=== PATIENT | female | born 1945 | race Caucasian/White ===

== ENCOUNTER 2019-09-25 10:42 | Outpatient (CLI) | payer MEDICARE, MEDICAID, SELFPAY ==
--- NOTE | 2019-09-25 | XR_ITS ---
WS: [id number] RIGHT HIP HISTORY: PT FELL A COUPLE DAYS AGO, RT HIP PAIN COMPARISON: 10/22/2011 Right hip: No acute fracture or dislocation. Moderate narrowing of the RIGHT hip joint with osteophyt ic ridging around the acetabulum. Surface of the RIGHT hip is irregular. Mild narrowing of the SI joint. Enthesopathy from the iliac crest. XR/XR hip RT 2-3V wo/w pel* [id number] IMPRESSION: 1. No hip fracture. 2. Moderate degenerative joint disease RIGHT hip.
== END 2019-09-25 10:43 | disposition home or self-care (01) ==
LOC: RADOUTREAD 12:56
PROVIDERS: Family Provider Physician Assistant; Visit Provider Physician Assistant
DX: Z76.89 Persons encountering health services in other specified circumstances (principal)

== ENCOUNTER 2020-01-16 08:23 | Outpatient (CLI) | payer MEDICARE, MEDICAID, SELFPAY ==
[2020-01-16 08:50] VITALS: BMI 28.3
--- NOTE | 2020-01-16 08:54 | ECG_ITS ---
NAME OF STUDY: LEXISCAN SESTAMIBI STRESS TEST INDICATION: Exertional Chest Pain LEXISCAN STRESS TEST ORDERING PHYSICIAN: Unknown CLINICAL INFORMATION: Unknown INTERPRETATION: 1. The patient was brought to the laboratory where Lexiscan was infused over 20 seconds. The resting blood pressure was 170/64. Maximum blood pressure was 250/71. The resting heart rate was 61 beats per minute. The maximum heart rate is 93 beats per minute. 2. The baseline electrocardiogram reveals sinus rhythm and is a normal tracing 3. With Lexiscan infusion, there were no ST segment changes to suggest ischemia. 4. The patient experienced no symptoms or arrhythmias during the examination. CONCLUSION: 1. Unremarkable Lexiscan infusion. 2. Nuclear imaging to follow. Electronically Signed On 01-16-2020 12:01:[address] M.D. [id number]
--- NOTE | 2020-01-16 08:54 | NMCV_ITS ---
NM luis miguel perf SPECT r/s* [id number] Patricia Benito Age: 74 Gender: F : 1945 Exam Date: 01/16/2020 08:54 Ordering Phys: Annel Gill Technologist: ALEXIS Rushing Exam Location: [facility] Indications: Exertional chest pain STRESS TEST Please see separate stress test report in [facility] for full findings IMAGE PROTOCOL Rest/Stress 1 Lexiscan Day Radiopharmaceutical Dose (mCi) Administration Site Administered by Rest: Tc-99m 10.6 IV ALEXIS Ly Sestamibi Stress:Tc-99m 32.4 IV ALEXIS Rushing Sestamityrell Rest: 16-Jan-2020 60 Discovery 630 Stress: 16-Jan-2020 45 Discovery 630 0.4mg Lexiscan.supine position only as patient was unable to lay prone. SPECT RESULTS Technical Quality: Good Raw Data Analysis: Breast attenuation Image Corrections: No attenuation or motion correction applied Summed Stress Score: 6 Summed Rest Score: 4 Summed Difference Score: 2 PERFUSION FINDINGS Small area of persistently decreased tracer uptake noted in the apical region of left ventricle and mid to distal inferolateral wall on the rest images which showed mild to moderate reversibility on the stress images, in the absence of wall motion abnormality and absence of prone images most likely it is artifact however cannot rule out ischemia. Clinical correlation advised. FUNCTIONAL RESULTS (calculated via Gated SPECT) Stress Image LV EF (%): 89 Stress EDV (mL):47 TID: 1.04 Stress ESV (mL):5 Rest Image LV EF (%): 89 FUNCTIONAL FINDINGS: There is normal left ventricular systolic function. IMPRESSIONS Small area of persistently decreased tracer uptake noted in the apical region of left ventricle and mid to distal inferolateral wall on the rest images which showed mild to moderate reversibility on the stress images, in the absence of wall motion abnormality and absence of prone images most likely it is an artifact however cannot rule out ischemia. Clinical correlation advised. EKG segment will be documented separately. Miranda Ferraro MD (Electronically Signed) Final Date: 16 Jan 2020 17:48 S
--- NOTE | 2020-01-16 10:45 | SUR.PREOP ---
Patient reports no pain or discomfort prior to the start of the procedure.
[2020-01-16] MEDS: regadenoson 0.4 Mg/5 ml Syringe IVP (11:20)
[2020-01-16 11:28] VITALS: BP 181/63; PULSE 82
== END 2020-01-16 08:24 | disposition home or self-care (01) ==
LOC: RAD 08:29
PROVIDERS: PCP Physician Assistant; Visit Provider Physician Assistant
DX: R07.89 Other chest pain (principal)
CPT/HCPCS: 78452; 93017; A9500; J2785

== ENCOUNTER 2020-02-08 11:05 | Emergency (ER) | payer MEDICARE, MEDICAID, SELFPAY ==
[2020-02-08 11:13] VITALS: BP 189/98; PULSE 97; RESP 18; TEMP 37.1; O2SAT 97
[2020-02-08 11:17] VITALS: BMI 28.6
--- NOTE | 2020-02-08 11:40 | ECG_ITS ---
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 Measurements Intervals [place] Rate: 86 P: 26 HI: 141 QRS: 68 QRSD: 71 T: 14 QT: 351 QTc: 421 Interpretive Statements SINUS RHYTHM NONSPECIFIC ST & T-WAVE ABNORMALITY Compared to ECG 07/09/2019 19:19:15 T-wave abnormality now present Sinus bradycardia no longer present Electronically Signed On 02-09-2020 22:55:33 CDT by Julieta Adhikari M.D. [id number]
--- NOTE | 2020-02-08 11:42 | XR_ITS ---
WS: [id number] XR chest 1V portable [id number] REASON FOR EXAM: chest pain FINDINGS: The cardiac silhouette is borderline enlarged. There is arteriosclerotic changes seen in th e arch the aorta. The lung olvera are well aerated. No pneumonia, pleural effusion, pulmonary edema, no mass effect. There is degenerate changes in both shoulders. The hilum and apices are normal. No osseous abnormalities other than degenerate changes of the thoracic spine. XR/XR chest 1V portable [id number] IMPRESSION: Borderline cardiomegaly with arteriosclerotic changes.
--- NOTE | 2020-02-08 11:43 | W.ED.CHESTPA ---
HPI - Chest Pain General: Chief Complaint: Chest Pain Stated Complaint: R ABD PAIN Time Seen by Provider: 02/08/20 11:08 Source: patient and family Mode of arrival: ambulatory Limitations: no limitations History of Present Illness: HPI narrative: symptoms started 3 days ago with chest pain/pressure, RLQ pain, nausea and vomiting. No fever, no urinary symptoms. no difficulty breathing. Onset (ago): day(s) (3) Timing of current episode: constant Onset: during rest Pain location: left chest Pain radiation: none Severity: moderate Quality: crushing Relieving factors: nitroglycerin Exacerbating factors: nothing Context: recent illness Associated symptoms: Reports abdominal pain, nausea and vomiting; Deny diaphoresis, dyspnea or palpitations Review of Systems General: Reports: 10 or more systems reviewed and unremarkable except in HPI and below Const: Denies: diaphoresis Eyes: Denies: change in vision or blurry vision ENMT: Denies: throat pain, enlarged tonsils, odynophagia, hoarseness, mouth pain or swelling of lips/tongue Card: Reports: chest pain; Denies: palpitations, irregular heart rhythm, edema or swelling of feet/ankles Resp: Denies: dyspnea GI: Reports: abdominal pain, nausea, vomiting and diarrhea : Denies: flank pain, difficulty voiding, dysuria, urinary frequency, urinary urgency or urinary hesitancy Musc: Denies: neck pain, back pain or extremity swelling Skin/Breast: Denies: rash, pruritus or erythema Neuro: Denies: headache(s), numbness in extremities or weakness in extremities Endo: Denies: polyuria, polydipsia or tired all the time [facility] ED PFSH: Social History Smoking and tobacco status: never smoked Physical Exam Const: COMMON NORMALS: no acute distress, average body habitus, patient oriented x3, no limitations, healthy appearing, alert and well nourished HENMT: COMMON NORMALS: normocephalic, atraumatic and moist oral mucous membranes HEAD & SCALP: normocephalic and atraumatic Eye: COMMON NORMALS: Equal, round and reactive pupils present, EOMs intact bilaterally, conjunctivae normal and no scleral icterus CONJUNCTIVA: Yes conjunctivae normal PUPIL: Yes Equal, round and reactive pupils present Neck/C-Spine: COMMON NORMALS: full ROM, supple, no meningeal signs, no JVD and No carotid bruits Chest: COMMONS NORMALS: normal inspection of the chest and normal palpation of entire chest wall Resp: COMMON NORMALS: normal respiratory effort, No retractions, No use of accessory muscles, clear to auscultation bilaterally and percussion normal AUSCULTATION: clear to auscultation bilaterally PERCUSSION: percussion normal Cardio: COMMON NORMALS: no JVD, regular rate, regular rhythm, S1 normal heart sound present, S2 normal heart sound present, No gallops present (Cardio), No clicks present (Cardio), No murmurs present (Cardio), No rub (Cardio) and Peripheral pulses 2+ throughout RATE: regular rate RHYTHM: regular rhythm HEART SOUNDS: S1 normal heart sound present and S2 normal heart sound present PERIPHERAL PULSES: Peripheral pulses 2+ throughout GI: COMMON NORMALS: Normal to inspection, nondistended, normoactive bowel sounds present, Soft to palpation, No hepatosplenomegaly present, no masses and no bruits PALPATION: Yes Soft to palpation, Yes Tenderness to palpation present (GI) (generalized, no rebound), No Guarding due to palpation present (GI), No Rigid due to palpation and Yes No hepatosplenomegaly present : COMMON NORMALS: Yes no CVA tenderness BLADDER/KIDNEY EXAM: Yes no CVA tenderness Back/Pelvis: COMMON NORMALS: no CVA tenderness Extremity: COMMON NORMALS: normal to inspection, full ROM, capillary refill normal, no calf tenderness and no pedal edema Neuro: COMMON NORMALS: patient oriented x3 SENSORIUM/ORIENTATION: Yes alert MENINGEAL SIGNS: Yes no meningeal signs Skin: COMMON NORMALS: no rashes or lesions noted, no wounds, turgor normal, no jaundice, no petechiae and no mottling GENERAL SKIN EXAM: no rashes or lesions noted and turgor normal Course Reevaluation(s): Reevaluation #1: Discussed her lab and imaging findings with her. Flat 2-hour troponin delta. CT scan negative for acute findings, shows a right ovarian cyst. She had known about this cyst in the past. I advised that she follow-up with her primary care for an ultrasound to further evaluate the cyst because at her age I do not expect her to be having ovarian cysts. UA is suggestive of UTI, will give a dose of ceftriaxone here in the emergency department and discharge her home on oral antibiotics. She is to follow-up with her primary care provider next week. she voiced understanding and she is in agreement with the plan. Time: 15:22 Vital Signs: Vital signs: Vital Signs Temperature 98.7 F 02/08/20 11:13 Pulse Rate 89 02/08/20 16:36 Respiratory Rate 16 02/08/20 16:36 Blood Pressure 147/88 02/08/20 16:36 Pulse Oximetry 98 02/08/20 16:36 MDM - Chest Pain MDM Narrative: Medical decision making narrative: Patient who presents to the emergency department with chest pain and right lower quadrant pain. Evaluation in the emergency department was unremarkable other than likely urinary tract infection. She is given a dose of ceftriaxone in the ED and discharged home to follow-up with her primary care provider. She was discharged home with a prescription for oral antibiotic. Medical Records: Attestation: I reviewed the patient's medical records. Lab Data: Attestation: I reviewed the patient's lab results. Labs: Lab Results 02/08/20 02/08/20 02/08/20 Range/Units 11:50 11:50 11:50 WBC 8.5 (4.0-10.0) 10^3/ uL RBC 4.58 (4.1-5.3) 10^6/u L Hgb 12.1 (11.5-15.3) g/dL Hct 38.9 (37.0-47.0) % MCV 84.9 (81-99) fL MCH 26.4 L (28.0-34.0) pg MCHC 31.1 (30.0-36.0) g/dL RDW 14.5 (12.1-15.1) % Plt Count 278 (130-400) 10^3/c mm MPV 9.0 (7.4-10.4) fL Neut % (Auto) 77.5 % Lymph % (Auto) 13.7 % Marathon % (Auto) 6.9 % Eos % (Auto) 0.9 % Baso % (Auto) 0.6 % Neut # (Auto) 6.6 (1.8-7.7) 10^3/u L Lymph # (Auto) 1.2 (0.8-4.8) 10^3/u L Marathon # (Auto) 0.6 (0.2-0.9) 10^3/u L Eos # (Auto) 0.1 (0.0-0.8) 10^3/u L Baso # (Auto) 0.1 (0.0-0.1) 10^3/u L Nucleated RBC % (a uto) 0 % Nucleated RBCs # 0.0 /100WBC Sodium 137 (136-145) mmol/L Potassium 3.8 (3.5-5.1) mmol/L Chloride 102 (98-107) mmol/L Carbon Dioxide 18 L (22-29) mmol/L Anion Gap 20.8 H (5-19) BUN 17 (8-23) mg/dL Creatinine 1.0 H (0.5-0.9) mg/dL Glucose 113 (65-115) mg/dL Calculated Osmolal ity 281 L (285-295) mOsm/k g Lactate 1.5 (0.5-2.2) mmol/L Calcium 10.1 (8.5-10.5) mg/dL Total Bilirubin 0.3 (0.15-1.2) mg/dL AST 19 (0-32) U/L ALT 13 (0-33) U/L Alkaline Phosphata se 73 (35-105) IU/L Troponin T Baselin e (0-10) ng/L Troponin T 120 Min talia (0-10) ng/L Delta Troponin T (0-10) ABS# C-Reactive Protein 26.3 H (0.0-4.9) mg/L Total Protein 7.6 (6.6-8.7) g/dL Albumin 4.9 (3.5-5.2) g/dL Globulin 2.7 (1.3-4.6) g/dL Lipase 33 (13-60) U/L Urine Color (Yellow) Urine Appearance (CLEAR) Urine pH (5-7) Ur Specific Gravit y (1.005-1.030) Urine Protein (Negative) Urine Glucose (UA) (Normal) Urine Ketones (Negative) Urine Blood (Negative) Urine Nitrate (Negative) Urine Bilirubin (NEGATIVE) Urine Urobilinogen (Negative) mg/dL Ur Leukocyte Latonia ase (Negative) Urine RBC (0-2) /hpf Urine WBC (0-5) /hpf Ur Squamous Epith Cells (0-5) Urine Bacteria (NONE) 02/08/20 02/08/20 02/08/20 Range/Units 11:50 13:34 13:50 WBC (4.0-10.0) 10^3/ uL RBC (4.1-5.3) 10^6/u L Hgb (11.5-15.3) g/dL Hct (37.0-47.0) % MCV (81-99) fL MCH (28.0-34.0) pg MCHC (30.0-36.0) g/dL RDW (12.1-15.1) % Plt Count (130-400) 10^3/c mm MPV (7.4-10.4) fL Neut % (Auto) % Lymph % (Auto) % Marathon % (Auto) % Eos % (Auto) % Baso % (Auto) % Neut # (Auto) (1.8-7.7) 10^3/u L Lymph # (Auto) (0.8-4.8) 10^3/u L Marathon # (Auto) (0.2-0.9) 10^3/u L Eos # (Auto) (0.0-0.8) 10^3/u L Baso # (Auto) (0.0-0.1) 10^3/u L Nucleated RBC % (a uto) % Nucleated RBCs # /100WBC Sodium (136-145) mmol/L Potassium (3.5-5.1) mmol/L Chloride (98-107) mmol/L Carbon Dioxide (22-29) mmol/L Anion Gap (5-19) BUN (8-23) mg/dL Creatinine (0.5-0.9) mg/dL Glucose (65-115) mg/dL Calculated Osmolal ity (285-295) mOsm/k g Lactate (0.5-2.2) mmol/L Calcium (8.5-10.5) mg/dL Total Bilirubin (0.15-1.2) mg/dL AST (0-32) U/L ALT (0-33) U/L Alkaline Phosphata se (35-105) IU/L Troponin T Baselin e 10 (0-10) ng/L Troponin T 120 Min talia 13.08 H (0-10) ng/L Delta Troponin T 3.08 (0-10) ABS# C-Reactive Protein (0.0-4.9) mg/L Total Protein (6.6-8.7) g/dL Albumin (3.5-5.2) g/dL Globulin (1.3-4.6) g/dL Lipase (13-60) U/L Urine Color Yellow (Yellow) Urine Appearance Clear (CLEAR) Urine pH 7 (5-7) Ur Specific Gravit y 1.005 (1.005-1.030) Urine Protein 1+ H (Negative) Urine Glucose (UA) Norm (Normal) Urine Ketones Negative (Negative) Urine Blood 2+ H (Negative) Urine Nitrate Positive H (Negative) Urine Bilirubin Neg (NEGATIVE) Urine Urobilinogen Norm (Negative) mg/dL Ur Leukocyte Latonia ase Negative (Negative) Urine RBC 0-4 H (0-2) /hpf Urine WBC None (0-5) /hpf Ur Squamous Epith Cells 0-4 H (0-5) Urine Bacteria Trace (NONE) Imaging Data^: CXR: Radiologist's impression: [place] [address] XRay Report Signed Patient: Patricia Benito #: [id number] : 6Acct#:[id number] Age/Sex: 74 / FADM Date: 02/08/20 Loc: [facility]/Bed: Attending Dr: Ordering Provider/Ordering MD: Crystal Olivo MD, [facility] Date of Service: 02/08/20 Procedure(s): XR chest 1V portable [id number] Accession Number(s): [id number] Report Number: [id number] WS: [id number] XR chest 1V portable [id number] REASON FOR EXAM: chest pain FINDINGS: The cardiac silhouette is borderline enlarged. There is arteriosclerotic changes seen in the arch the aorta. The lung olvera are well aerated. No pneumonia, pleural effusion, pulmonary edema, no mass effect. There is degenerate changes in both shoulders. The hilum and apices are normal. No osseous abnormalities other than degenerate changes of the thoracic spine. XR/XR chest 1V portable [id number] IMPRESSION: Borderline cardiomegaly with arteriosclerotic changes. Dictated By:Igor Orellana DO Signed By:Igor Orellana DOSigned Date/Time:02/08/208 DD/ 1217 CT Abd/Pel: Radiologist's impression: [facility] [address] [place] [address] CT Scan Report Signed Patient: Patricia Benito #: [id number] : 6Acct#:[id number] Age/Sex: 74 / FADM Date: 02/08/20 Loc: [facility]/Bed: Attending Dr: Ordering Provider/Ordering MD: Crystal Olivo MD, [facility] Date of Service: 02/08/20 Procedure(s): CT abdomen pelvis w con* [id number] Accession Number(s): [id number] Report Number: [id number] WS: [id number] CT abdomen pelvis w con* [id number] REASON FOR EXAM: RLQ pain IV CONTRAST ADMINISTERED: Omnipaque 300, 95 mL TOTAL EXAM DLP: 553.[address] scans at [facility] use at least one of these dose optimization techniques: automated exposure control; mA and/or kV adjustment per patient size (includes targeted exams where dose is matched to clinical indication); or iterative reconstruction. FINDINGS: The lower lungs and mediastinum were normal. The liver showed normal appearance no infiltrating lesions. The gallbladder surgically absent. The stomach, spleen, adrenal glands, aorta inferior vena cava, are all normal. The head, body, tail the pancreas were normal. Both renal shadows are normal a 1.02 cm cyst is seen along the superior pole of the left kidney. There is no outlet obstruction and neither ureter is dilated. [place] the aorta shows heavy arteriosclerotic changes. The right colon shows no lesions. The appendix appear to be normal in size configuration no fluid or inflammatory changes surrounding the appendix are seen. Small bowel was normal not thickened wall. The right ovary is 3.12 0.38 cm and is replaced with a cyst. The uterus appears to be surgically absent. The bladder was normal. The rectum showed no abnormalities. No hernias in the inguinal are umbilical area were seen. The L5-S1 shows marked facet arthropathy. The remaining pelvis appear to be normal. The remaining lumbar spine showed L4-5 suggests exiting were essentially normal. Stenosis there are no fractures or destructive changes seen. CT/CT abdomen pelvis w con* [id number] IMPRESSION: No evidence of appendicitis. Right ovarian cyst. Small cyst of the left kidney. Dictated By:Igor Orellana DO Signed By:Igor Orellana DOSigned Date/Time:02/08/20 1247 DD/ 1241 EKG Data^: EKG 1: Attestation: I personally reviewed and interpreted this EKG as follows: EKG interpretation date: 02/08/20 EKG interpretation time: 11:32 Prior EKG tracings: not available for review Interpretation: Normal sinus rhythm. Heart rate 86 bpm. T wave inversion in V2. Q waves in II, III, aVF. EKG 2: Attestation: I personally reviewed and interpreted this EKG as follows: EKG interpretation date: 02/08/20 EKG interpretation time: 13:28 Prior EKG tracings: available for review Interpretation: NSR HR [address] changes Normal axis Discharge Plan Discharge Patient Disposition: Home, Self-Care Clinical Impression: Acute UTI, Cyst of right ovary Chest pain Qualifiers: Chest pain type: unspecified Qualified Code(s): R07.9 - Chest pain, unspecified Condition: Stable Prescriptions: New nitrofurantoin macrocrystal 100 mg capsule 100 mg PO BID 7 Days Qty: 14 RF: 0 Continued furosemide 40 mg tablet 40 mg PO DAILY RF: 0 sertraline 100 mg tablet 100 mg PO DAILY RF: 0 clopidogrel [Plavix] 75 mg Tablet 75 mg PO DAILY RF: 0 omeprazole 40 mg capsule,delayed release(DR/EC) 40 mg PO DAILY RF: 0 Aspir-81 81 mg Tablet,Delayed Release (Dr/Ec) 81 mg PO DAILY RF: 0 Tylenol Extra Strength 500 mg Tablet 1,000 mg PO PRN RF: 0 Calcium 500 500 mg calcium (1,250 mg) Tablet 500 mg PO DAILY RF: 0 lisinopril 10 mg tablet 10 mg PO DAILY RF: 0 gabapentin 300 mg capsule 300 mg PO BEDTIME RF: 0 rosuvastatin 20 mg tablet 20 mg PO DAILY RF: 0 metoprolol tartrate 25 mg tablet 25 mg PO BID RF: 0 potassium gluconate 595 mg (99 mg) Tablet 595 mg PO DAILY RF: 0 Vitamin B-12 1 tab PO DAILY RF: 0 Discharge Orders: Discharge Order (Routine); Ordered 02/08/20 Ordered By: Crystal Olivo Referrals: Annel Gill PA [Primary Care Provider] - 1-3 days Patient Instructions: Chest Pain (ED), Ovarian Cyst (ED), Urinary Tract Infection - Women Activity Restrictions/Additional Instructions: Return for any new or worsening symptoms. Follow-up with your primary care provider within 3 days for further evaluation of your symptoms especially with your ovarian cyst. Take the antibiotic as prescribed. Take Tylenol or ibuprofen as needed for pain. Discharge Date/Time: 02/08/20 16:38 Coding Level of Care Code ED [employer] for Marlene Fwd Exam Comprehensive
[2020-02-08 11:53] VITALS: BP 158/81; PULSE 86; RESP 16; O2SAT 96
[2020-02-08] MEDS: sodium chloride 0.9% 1,000 ML 999 ML IV (12:00)
[2020-02-08 12:01] LABS: Basophils # 0.1 10^3/uL (0.0-0.1); Basophils % 0.6 %; Eosinophils # 0.1 10^3/uL (0.0-0.8); Eosinophils % 0.9 %; Hematocrit 38.9 % (37.0-47.0); Hemoglobin 12.1 g/dL (11.5-15.3); Lymphocytes # 1.2 10^3/uL (0.8-4.8); Lymphocytes % 13.7 %; Mean Corpuscular HGB Conc 31.1 g/dL (30.0-36.0); Mean Corpuscular Hemoglobin 26.4 pg (28.0-34.0); Mean Corpuscular Volume 84.9 fL (81-99); Monocytes # 0.6 10^3/uL (0.2-0.9); Monocytes % 6.9 %; Neutrophils # 6.6 10^3/uL (1.8-7.7); Neutrophils % 77.5 %; Nucleated Red Blood Cells % 0 %; Platelet Count 278 10^3/cmm (130-400); Red Blood Count 4.58 10^6/uL (4.1-5.3); Red Cell Distribution Width 14.5 % (12.1-15.1); White Blood Count 8.5 10^3/uL (4.0-10.0)
[2020-02-08 12:15] LABS: Alanine Aminotransferase 13 U/L (0-33); Albumin Level 4.9 g/dL (3.5-5.2); Alkaline Phosphatase 73 IU/L (35-105); Anion Gap 20.8 (5-19); Aspartate Amino Transferase 19 U/L (0-32); Blood Urea Nitrogen 17 mg/dL (8-23); Calcium 10.1 mg/dL (8.5-10.5); Carbon Dioxide 18 mmol/L (22-29); Chloride 102 mmol/L (98-107); Globulin 2.7 g/dL (1.3-4.6); Glucose 113 mg/dL (65-115); Lipase 33 U/L (13-60); Osmolality Calculated 281 mOsm/kg (285-295); Potassium 3.8 mmol/L (3.5-5.1); Sodium 137 mmol/L (136-145); Total Bilirubin 0.3 mg/dL (0.15-1.2); Total Protein 7.6 g/dL (6.6-8.7)
[2020-02-08 12:16] LABS: Lactate (Lactic Acid level) 1.5 mmol/L (0.5-2.2)
[2020-02-08 12:17] LABS: Troponin(5th) Baseline 10 ng/L (0-10)
--- NOTE | 2020-02-08 12:17 | CT_ITS ---
WS: [id number] CT abdomen pelvis w con* [id number] REASON FOR EXAM: RLQ pain IV CONTRAST ADMINISTERED: Omnipaque 300, 95 mL TOTAL EXAM DLP: 553.[address] scans at [facility] use at least one of these dose optimization techniques: automat ed exposure control; mA and/or kV adjustment per patient size (includes targeted exams where dose is matched to clinical indication); or iterative reconstruction. FINDINGS: The lower lungs and mediastinum were normal. The liver showed normal appearance no infiltrating lesions. The gallbladder surgically absent. The stomach, spleen, adrenal glands, aorta inferior vena cava, are all normal. The head, body, tail the pancreas were normal. Both renal shadows are normal a 1.02 cm cyst is seen along the superior pole of the left kidney. Ther e is no outlet obstruction and neither ureter is dilated. [place] the aorta shows heavy arteriosclerot ic changes. The right colon shows no lesions. The appendix appear to be normal in size configuration no fluid or inflammatory changes surrounding the appendix are seen. Small bowel was normal not thickened wall. The right ovary is 3.12 0.38 cm and is replaced with a cyst. The uterus appears to be surgically abse nt. The bladder was normal. The rectum showed no abnormalities. No hernias in the inguinal are umbilical area were seen. The L5-S1 shows marked facet arthropathy. The remaining pelvis appear to be normal. The remaining lumbar spine showed L4-5 suggests exiting were essentially normal. Stenosis there are n o fractures or destructive changes seen. CT/CT abdomen pelvis w con* [id number] IMPRESSION: No evidence of appendicitis. Right ovarian cyst. Small cyst of the left kidney.
[2020-02-08] MEDS: iodixanol 320 mg/mL 100mL Btl IV (12:38)
--- NOTE | 2020-02-08 13:40 | ECG_ITS ---
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 Measurements Intervals [place] Rate: 82 P: 45 [place]: 164 QRS: 58 QRSD: 75 T: 14 QT: 366 QTc: 429 Interpretive Statements SINUS RHYTHM NONSPECIFIC T-WAVE ABNORMALITY Compared to ECG 07/09/2019 19:19:15 T-wave abnormality now present Sinus bradycardia no longer present Electronically Signed On 02-09-2020 23:02:11 CDT by Julieta Adhikari M.D. [id number]
[2020-02-08 13:49] VITALS: BP 148/92; PULSE 80; RESP 12; O2SAT 97
[2020-02-08 14:19] LABS: Troponin 5 2HR 13.08 ng/L (0-10); Troponin 5 2HR Delta 3.08 ABS# (0-10)
[2020-02-08 14:50] LABS: Add Urine Microscopic? YES; Bilirubin Urine Neg (NEGATIVE); Blood Urine 2+ (Negative); Glucose Urine UA Norm (Normal); Ketones Urine Negative (Negative); Leukocyte Esterase Urine Negative (Negative); Nitrate Urine Positive (Negative); Protein Urine 1+ (Negative); Specific Gravity, Urine 1.005 (1.005-1.030); Urine Appearance Clear (CLEAR); Urine Color Yellow (Yellow); Urobilinogen Urine Norm (Negative); pH Urine 7 (5-7)
[2020-02-08 15:03] LABS: Add Urine Culture? No; Bacteria Urine TRACE; RBC Urine 0-4 /hpf (0-2); Squamous Epithelial Cell Urine 0-4 (0-5)
[2020-02-08 15:04] VITALS: BP 173/96; PULSE 86; RESP 16; O2SAT 99
[2020-02-08] MEDS: cefTRIAXone 1,000 MG in sodium chloride 0.9% (plus) 50 ML 100 MG IV (15:38)
[2020-02-08 15:45] VITALS: BP 154/87; PULSE 86; RESP 18; O2SAT 97
[2020-02-08 16:23] LABS: C Reactive Protein 26.3 mg/L (0.0-4.9)
[2020-02-08 16:36] VITALS: BP 147/88; PULSE 89; RESP 16; O2SAT 98
== END 2020-02-08 16:38 | disposition home or self-care (01) ==
PROVIDERS: Emergency Provider Family Medicine; PCP Physician Assistant
DX: R07.9 Chest pain, unspecified (principal); N39.0 Urinary tract infection, site not specified; N83.201 Unspecified ovarian cyst, right side; Z79.82 Long term (current) use of aspirin
CPT/HCPCS: 12345; 36415; 71045; 74177; 80053; 81001; 83605; 83690; 84484; 85025; 86140; 93005; 96365; 99284; J0696; J7030; Q9967

== ENCOUNTER → 2020-07-29 15:15 | Outpatient (BNVA) | payer MEDICARE, MEDICAID, SELFPAY | PROVIDERS: Family Provider Physician Assistant; PCP Physician Assistant; Visit Provider Internal Medicine Cardiovascular Disease | DX: I10 Essential (primary) hypertension (principal) | CPT/HCPCS: 80048; 85025 ==

== ENCOUNTER 2020-09-11 11:49 | Emergency (ER) | payer MEDICARE, MEDICAID, SELFPAY ==
[2020-09-11 11:56] VITALS: BP 137/72; PULSE 65; RESP 18; TEMP 36.6; O2SAT 97; BMI 28.3
--- NOTE | 2020-09-11 12:31 | XR_ITS ---
WS: [id number] Lumbar spine, 3 views, 09/11/2020 Clinical Data: back strain Comparison: Lumbar spine, 11/23/2012. Findings: No compression fractures or subluxation is seen. There is disc space narrowing at T12-L1 and L1-L2.. The transverse processes and SI joints are normal. There is osteoarthritic spurring of all the lumbar vertebral bodies and the T10-T12 thoracic vertebra l bodies. There are clips in the right upper quadrant from a cholecystectomy. Calcification of the wa ll of the abdominal aorta but no aneurysm. XR/XR lumbar spine 2-3V* [id number] Impression: 1. Osteoarthritis lower lumbar vertebral bodies. 2. Degenerative disc narrowing at T12-L1 and L1-2.
--- NOTE | 2020-09-11 12:35 | W.ED.BACK ---
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 Presents to the emergency department for bilateral hip pain and lumbar pain. Patient states she was vacuuming on Tuesday started having low back pain is continued and gotten little bit more stiff throughout the past couple days. Patient states she takes Tylenol at home. Will do medical evaluation and treat as needed. MD elicited complaint: back pain and back injury Pertinent past history: prior back pain and arthritis Onset (ago): day(s) (3) Timing: constant Severity: moderate Similar Symptoms Previously: Yes Location: lumbar spine Radiation: none Exacerbating factors: movement Relieving factors: none Context: turning/twisting Associated symptoms: Deny abdominal pain, chills, dysuria, fever(s), nausea, urinary urgency or vomiting Review of Systems General: Reports: 10 or more systems reviewed and unremarkable except in HPI and below Const: Reports: body aches; Denies: fever(s), chills or change in appetite ENMT: Denies: throat pain, uvular edema or enlarged tonsils Card: Denies: chest pain, palpitations or irregular heart rhythm Resp: Denies: dyspnea, productive cough or non-productive cough GI: Denies: abdominal pain, nausea or vomiting : Denies: flank pain, difficulty voiding, dysuria, urinary frequency or urinary urgency Musc: Reports: back pain and joint pain PFS ED PFSH: Medical History Diabetes mellitus Heart failure HLD (hyperlipidemia) Hypertension Renal failure Surgical History History of percutaneous coronary intervention Social History Smoking and tobacco status: never smoked Household members: spouse Marital status: Physical Exam Const: COMMON NORMALS: no acute distress, average body habitus, patient oriented x3, no limitations, healthy appearing, alert and well nourished HENMT: COMMON NORMALS: normocephalic, atraumatic, hearing grossly normal bilaterally, external ears normal, EAC's normal, TM's normal bilaterally, Normal external nose present, Normal nasal mucous membranes and turbinates present, moist oral mucous membranes, oropharynx normal, dentition normal and gingiva normal HEAD & SCALP: normocephalic and atraumatic NOSE: Normal external nose present and Normal nasal mucous membranes and turbinates present EXTERNAL EAR: Yes external ears normal EXTERNAL AUDITORY CANAL: EAC's normal TYMPANIC MEMBRANE: TM's normal bilaterally THROAT: no uvular edema Neck/C-Spine: COMMON NORMALS: full ROM, no lymphadenopathy, supple, no meningeal signs, Thyroid normal and No carotid bruits THYROID: Thyroid normal Chest: COMMONS NORMALS: normal inspection of the chest, normal palpation of entire chest wall, normal inspection of the breasts and normal palpation of the breasts Breast/axilla inspection: Yes normal inspection of the breasts BREAST/AXILLA PALPATION: Yes normal palpation of the breasts Resp: COMMON NORMALS: normal respiratory effort, No retractions, No use of accessory muscles, clear to auscultation bilaterally and percussion normal AUSCULTATION: clear to auscultation bilaterally PERCUSSION: percussion normal : COMMON NORMALS: Yes no CVA tenderness BLADDER/KIDNEY EXAM: Yes no CVA tenderness Back/Pelvis: COMMON NORMALS: no CVA tenderness, thoracic and lumbar spine normal to inspection, no thoracic nor lumbar tenderness and straight leg raise negative bilaterally THORACIC SPINE/UPPER BACK: Yes pain with ROM and Yes paraspinal muscle tenderness Extremity: COMMON NORMALS: normal to inspection, full ROM, capillary refill normal, no joint enlargement, no clubbing, cyanosis or edema, no calf tenderness and no pedal edema Neuro: COMMON NORMALS: patient oriented x3 SENSORIUM/ORIENTATION: Yes alert MENINGEAL SIGNS: Yes no meningeal signs Course Reevaluation(s): Reevaluation #1: Patient is improved with IM injection of Norflex. X-rays of the lower back show the patient has significant arthritis both in the lower lumbar spine and the hips. Patient will continue home medications. Patient is to follow-up with PCP in 2 to 3 days for any additional medications. Patient also has a urinary tract infection. Patient be placed on Keflex. Time: 13:40 Vital Signs: Vital signs: Vital Signs Temperature 97.9 F 01/21/21 11:56 Pulse Rate 63 09/11/20 13:00 Respiratory Rate 16 09/11/20 13:00 Blood Pressure 136/60 09/11/20 13:00 Pulse Oximetry 99 09/11/20 13:00 MDM - Back Pain/Injury Differential Diagnosis: Differential diagnosis back pain/injury: Likely lumbar radiculopathy, sciatica, strain of lumbar region and thoracic back pain Medical Records: Attestation: I reviewed the patient's medical records. Lab Data: Attestation: I reviewed the patient's lab results. Labs: Lab Results 09/11/20 09/11/20 Range/Units 13:11 13:11 Urine Color Straw (Yellow) Urine Appearance Clear (CLEAR) Urine pH 7.0 (5-7) Ur Specific Gravit y 1.000 L (1.005-1.030) Urine Protein Neg (Negative) Urine Glucose (UA) Norm (Normal) Urine Ketones Negative (Negative) Urine Blood Neg (Negative) Urine Nitrate Negative (Negative) Urine Bilirubin Neg (Negative) Urine Urobilinogen Norm (Negative) mg/dL Ur Leukocyte [place] ase 1+ H (Negative) Amorphous Sediment Not Reportable Urine Opiates Scre en Negative (Negative) ng/mL Ur Barbiturates Sc reen Negative (Negative) ng/mL Ur Phencyclidine S crn Negative (Negative) ng/mL Ur Amphetamines Sc reen Negative (Negative) ng/mL U Benzodiazepines Scrn Negative (Negative) ng/mL Urine Cocaine Scre en Negative (Negative) ng/mL U Marijuana (THC) Screen Negative (Negative) ng/mL Imaging Data^: Xray Ortho: Attestation: I personally reviewed and interpreted this imaging study as follows: Radiologist's impression: Impression: 1. Osteoarthritis lower lumbar vertebral bodies. 2. Degenerative disc narrowing at T12-L1 and L1-2. Discharge Plan Discharge Patient Disposition: Home Clinical Impression: Low back pain, Arthritis, Urinary tract infection Condition: Stable Prescriptions: New Keflex 500 mg capsule 500 mg PO BID 7 Days Qty: 14 RF: 0 diclofenac sodium 75 mg tablet,delayed release (DR/EC) 75 mg PO BID PRN (Reason: pain) Qty: 20 RF: 0 No Action lisinopril 2.5 mg tablet 2.5 mg PO DAILY Qty: 90 RF: 3 metoprolol tartrate 25 mg tablet 12.5 mg PO BID Qty: 90 RF: 3 furosemide 20 mg tablet 20 mg PO DAILY Qty: 90 RF: 3 rosuvastatin 20 mg tablet 20 mg PO DAILY Qty: 90 RF: 3 sertraline 100 mg tablet 100 mg PO DAILY RF: 0 clopidogrel [Plavix] 75 mg Tablet 75 mg PO DAILY RF: 0 omeprazole 40 mg capsule,delayed release(DR/EC) 40 mg PO DAILY RF: 0 Aspir-81 81 mg Tablet,Delayed Release (Dr/Ec) 81 mg PO DAILY RF: 0 Tylenol Extra Strength 500 mg Tablet 1,000 mg PO PRN RF: 0 Calcium 500 500 mg calcium (1,250 mg) Tablet 500 mg PO DAILY RF: 0 gabapentin 300 mg capsule 300 mg PO BEDTIME RF: 0 potassium gluconate 595 mg (99 mg) Tablet 595 mg PO DAILY RF: 0 Vitamin B-12 1 tab PO DAILY RF: 0 Discharge Orders: Discharge ED (Routine); Ordered 09/11/20 Ordered By: Jordna Key Referrals: Annel Gill PA [Primary Care Provider] - Discharge Diet: Advance as tolerated Discharge Activity: Resume usual activity Patient Instructions: Urinary Tract Infection in Women (ED), Arthralgia (ED) Activity Restrictions/Additional Instructions: Encourage p.o. fluids. Follow instructions as instructed. Follow-up with PCP in 2 to 3 days. Take all medications as instructed. 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
--- NOTE | 2020-09-11 12:58 | PC.NURSE ---
pt to xray by stretcher with tech
[2020-09-11 13:00] VITALS: BP 136/60; PULSE 63; RESP 16; O2SAT 99
[2020-09-11 13:27] LABS: Add Urine Microscopic? YES; Bilirubin Urine Neg (Negative); Blood Urine Neg (Negative); Glucose Urine UA Norm (Normal); Ketones Urine Negative (Negative); Leukocyte Esterase Urine 1+ (Negative); Nitrate Urine Negative (Negative); Protein Urine Neg (Negative); Urine Appearance Clear (CLEAR); Urine Color Straw (Yellow); Urobilinogen Urine Norm (Negative)
[2020-09-11] MEDS: orphenadrine 30 mg/mL Inj 2 mL 60 MG IM (13:30)
[2020-09-11 13:46] LABS: Amphetamines Screen Urine Negative (Negative); Barbiturates Screen Urine Negative (Negative); Benzodiazepines Screen Urine Negative (Negative); Cocaine Screen Urine Negative (Negative); Opiate Screen Urine Negative (Negative); PCP Screen Urine Negative (Negative); THC Screen Urine Negative (Negative)
[2020-09-11 13:52] LABS: Add Urine Culture? Yes; Bacteria Urine 4+ /hpf; RBC Urine 0-4 /hpf (0-2); Squamous Epithelial Cell Urine 0-4 /hpf (0-5)
[2020-09-11 14:09] VITALS: BP 163/67; PULSE 66; RESP 18; O2SAT 99
== END 2020-09-11 14:11 | disposition home or self-care (01) ==
PROVIDERS: Emergency Provider Emergency Medicine; PCP Physician Assistant
DX: M13.88 Other specified arthritis, other site (principal); N39.0 Urinary tract infection, site not specified; Z79.02 Long term (current) use of antithrombotics/antiplatelets; Z79.82 Long term (current) use of aspirin; E11.9 Type 2 diabetes mellitus without complications; E78.5 Hyperlipidemia, unspecified; I10 Essential (primary) hypertension; Z79.899 Other long term (current) drug therapy
CPT/HCPCS: 12345; 72100; 80306; 81001; 87077; 87086; 87186; 96372; 99282; 99283; J2360

== ENCOUNTER → 2021-02-02 16:36 | Outpatient (BNVA) | payer MEDICARE, MEDICAID, SELFPAY | PROVIDERS: PCP Physician Assistant; Visit Provider Nurse Practitioner Family | DX: I50.9 Heart failure, unspecified (principal) | CPT/HCPCS: 80048 ==

== ENCOUNTER → 2021-02-24 14:15 | Outpatient (BNVA) | payer MEDICARE, MEDICAID, SELFPAY | PROVIDERS: PCP Physician Assistant; Visit Provider Nurse Practitioner Family | DX: I50.9 Heart failure, unspecified (principal); I10 Essential (primary) hypertension; E11.9 Type 2 diabetes mellitus without complications | CPT/HCPCS: 80048; 83880 ==

== ENCOUNTER 2021-02-27 12:26 | Outpatient (CLI) | payer MEDICARE, MEDICAID, SELFPAY ==
--- NOTE | 2021-02-27 13:30 | USCV_ITS ---
Patricia Benito Age: 75 Gender: F : 1945 Exam Date: 02/27/2021 12:40 Ordering Phys: Miranda Ferraro MD ([email or web address]) Technologist: Lenore Fnuk Exam Location: [facility] [place] Indication: chest pain, sob BP: / HR: 67 Rhythm: Sinus Technical Quality: Adequate MEASUREMENTS (Male / Female) Normal Values 2D ECHO LV Diastolic Diameter PLAX 3.5 cm 4.2 - 5.9 / 3.9 - 5.3 cm LV Systolic Diameter PLAX 1.6 cm IVS Diastolic Thickness 1.2 cm 0.6 - 1.0 / 0.6 - 0.9 cm IVS Systolic Thickness 1.8 cm LVPW Diastolic Thickness 0.9 cm 0.6 - 1.0 / 0.6 - 0.9 cm LVPW Systolic Thickness 1.7 cm LVOT Diameter 2.0 cm LV Ejection Fraction 2D Teich 86.5 % LV Ejection Fraction MOD 2C 62.8 % LV Ejection Fraction 2C AL 63.3 % LA Diameter 2.8 cm LA Width 2.8 cm LA Height 4.8 cm RA Width 3.7 cm RA Height 4.2 cm Aorta at Sinotubular Diameter 2.6 cm M-MODE LV Diastolic Diameter MM 4.3 cm 4.2 - 5.9 / 3.9 - 5.3 cm LV Systolic Diameter MM 3.5 cm LV Ejection Fraction MM Teich 38.3 % IVS Diastolic Thickness MM 0.9 cm 0.6 - 1.0 / 0.6 - 0.9 cm IVS Systolic Thickness MM 0.9 cm LVPW Diastolic Thickness MM 0.8 cm 0.6 - 1.0 / 0.6 - 0.9 cm LVPW Systolic Thickness MM 1.1 cm Aortic Annulus Diameter 2.8 cm LA Ao Ratio MM 1.1 MV E Point Septal Separation 0.3 cm DOPPLER AV Peak Velocity 136.0 cm/s LVOT Peak Velocity 113.0 cm/s AV Area Cont Eq vti 2.5 cm squared AV Area Cont Eq pk 2.6 cm squared MV Peak Velocity 101.0 cm/s MV Area PHT 3.1 cm squared Mitral E to A Ratio 1.1 MV E' Velocity 44.0 cm/s Mitral E to MV E' Ratio 12.1 Mitral E to LV E' Lateral Ratio 14.4 Mitral E to LV E' Septal Ratio 10.4 TR Peak Velocity 91.4 cm/s TR Peak Gradient 3.3 mmHg TR Mean Velocity 65.0 cm/s TR Mean Gradient 2.2 mmHg TR Velocity Time Integral 19.2 cm Right Atrial Pressure 3.0 mmHg Pulmonary Artery Systolic Pressu 6.3 mmHg PV Peak Velocity 67.0 cm/s RV Acceleration Time 0.1 s RV Ejection Time 0.3 s RV AcT/ET 0.2 FINDINGS Left Ventricle Normal left ventricular cavity size. Normal left ventricular systolic function. No regional wall motion abnormalities. Left ventricular ejection fraction is estimated at 65 %. Grade I/IV diastolic dysfunction (abnormal relaxation filling pattern), normal to mildly elevated filling pressures. Right Ventricle The right ventricle is normal in size and function. Right Atrium The right atrium is normal in size. Left Atrium The left atrium is normal in size. Mitral Valve Structurally normal mitral valve without significant stenosis or prolapse. There is no mitral regurgitation. Aortic Valve Structurally normal aortic valve without significant sclerosis or stenosis. There is no aortic regurgitation. Tricuspid Valve Structurally normal tricuspid valve without significant stenosis or regurgitation. Pulmonary artery systolic pressure is normal. Pulmonic Valve Structurally normal pulmonic valve without significant stenosis. There is no pulmonic regurgitation. Pericardium Normal pericardium without effusion. Aorta Normal ascending aorta dimension. CONCLUSIONS 1-Normal left ventricular cavity size. Normal left ventricular systolic function. No regional wall motion abnormalities. Left ventricular ejection fraction is estimated at 65 %. Grade I/IV diastolic dysfunction (abnormal relaxation filling pattern), normal to mildly elevated filling pressures. 2-No significant valve abnormalities. 3-There is no pericardial effusion. 4-Pulmonary artery systolic pressure is within normal limits. 5-Right atrial pressure is around 5 mm of mercury. 6-There are no prior echocardiogram studies to compare. Miranda Ferraro MD (Electronically Signed) Final Date: 03 March 2021 18:22 S
== END 2021-02-27 12:27 | disposition home or self-care (01) ==
PROVIDERS: PCP Physician Assistant; Visit Provider Internal Medicine Cardiovascular Disease
DX: R06.02 Shortness of breath (principal); R07.9 Chest pain, unspecified; I51.9 Heart disease, unspecified
CPT/HCPCS: 93306

== ENCOUNTER → 2021-06-29 14:40 | Outpatient (BNVA) | payer MEDICARE, MEDICAID, SELFPAY | PROVIDERS: PCP Physician Assistant; Referring Provider Physician Assistant; Visit Provider Specialist | DX: G56.11 Other lesions of median nerve, right upper limb (principal) | CPT/HCPCS: 95908 ==

== ENCOUNTER 2021-10-13 18:23 | Emergency (ER) | payer MEDICARE, MEDICAID, SELFPAY ==
--- NOTE | 2021-10-13 18:30 | XR_ITS ---
WS: [id number] PORTABLE CHEST HISTORY: cp COMPARISON: 02/08/2020 Lungs are clear and well expanded. No pleural effusion or pneumothorax. Cardiac size: Normal. Mediastinum/Aorta: Mild atherosclerosis aorta. Advanced degenerative changes at the glenohumeral joints and the AC joints. Osteopenia. Prior cholecystectomy. Moderate fluid and air distention of the transverse colon. Air distended trans verse colon measures up to 9.3 cm. XR/XR chest 1V portable [id number] IMPRESSION: 1. No pneumonia. 2. Mild atherosclerosis. 3. Prior cholecystectomy. 4. Moderate air distention of the transverse colon.
[2021-10-13 18:40] VITALS: BP 143/82; PULSE 72; RESP 20; TEMP 36.8; O2SAT 98; BMI 28.3
--- NOTE | 2021-10-13 18:40 | W.ED.CHESTPA ---
HPI - Chest Pain General: Chief Complaint: Chest Pain Stated Complaint: CHEST PAIN, COSTOCHONDRITIS Time Seen by Provider: 10/13/21 18:24 Source: patient and EMS Mode of arrival: EMS Limitations: no limitations History of Present Illness: 76-year-old female states she started having left-sided chest pain at 3 PM today. States pain is been sharp and is worse with palpation. States she has had costochondritis in the past. She also has a history of coronary disease as well. Denies any shortness of breath denies any radiation of her pain states her pains improved currently but with movement or touch it is worse she got carsick on the right here with EMS and vomited not made her pain worse as well. She had no diaphoresis no fever Associated symptoms: Deny abdominal pain, dyspnea, fever(s), nausea or vomiting Review of Systems Const: Denies: fever(s), chills, body aches or change in appetite Eyes: Denies: blurry vision or eye discomfort ENMT: Denies: throat pain or dental pain Card: Denies: chest pain Resp: Denies: dyspnea GI: Denies: abdominal pain, nausea, vomiting or diarrhea : Denies: dysuria Musc: Denies: neck pain or back pain Skin/Breast: Denies: rash Neuro: Denies: headache(s) Psych: Denies: depression Kt/Lymph: Denies: easy bruising All/Imm: Denies: urticaria PFSH ED PFSH: Medical History Diabetes mellitus Heart failure HLD (hyperlipidemia) Hypertension Renal failure Surgical History History of percutaneous coronary intervention Social History Smoking and tobacco status: never smoked Household members: spouse Marital status: Physical Exam Const: COMMON NORMALS: no acute distress, patient oriented x3 and healthy appearing HENMT: COMMON NORMALS: normocephalic and atraumatic HEAD & SCALP: normocephalic and atraumatic Eye: COMMON NORMALS: Equal, round and reactive pupils present and EOMs intact bilaterally PUPIL: Yes Equal, round and reactive pupils present Neck/C-Spine: COMMON NORMALS: full ROM and supple Chest: COMMONS NORMALS: normal inspection of the chest; negative for normal palpation of entire chest wall (point tender over right chest) Resp: COMMON NORMALS: normal respiratory effort, No retractions, No use of accessory muscles and clear to auscultation bilaterally AUSCULTATION: clear to auscultation bilaterally Cardio: COMMON NORMALS: regular rate, regular rhythm and No murmurs present (Cardio) RATE: regular rate RHYTHM: regular rhythm GI: COMMON NORMALS: Normal to inspection, nondistended, normoactive bowel sounds present, Soft to palpation, non-tender and no masses PALPATION: Yes Soft to palpation Extremity: COMMON NORMALS: normal to inspection and full ROM Neuro: COMMON NORMALS: patient oriented x3, moves all extremities and no focal motor deficits Psych: COMMON NORMALS: mental status grossly normal, Normal thought process present and cooperative THOUGHT PROCESS: Normal thought process present Skin: COMMON NORMALS: no rashes or lesions noted and no wounds GENERAL SKIN EXAM: no rashes or lesions noted Course Vital Signs: Vital signs: Vital Signs Temperature 98.2 F 10/13/21 18:40 Pulse Rate 55 L 10/13/21 20:09 Respiratory Rate 16 10/13/21 20:24 Blood Pressure 166/85 10/13/21 20:09 Pulse Oximetry 96 10/13/21 20:24 MDM - Chest Pain Medical Decision Making Patient presents here with chest pains atypical in nature she is point tender in the center of her chest likely chest wall pain she has had this before as well. Patient's blood work 2-hour troponin EKGs are all normal she feels improved here she stable for discharge she is to follow-up with PCP and return if worsening she understands agrees to plan. Lab Data : 10/13/21 18:50 10/13/21 18:50 Laboratory Results WBC 8.0 10^3/uL (4.0-10.0) 10/13/21 18:50 RBC 3.87 10^6/uL (4.1-5.3) L 10/13/21 18:50 Hgb 10.9 g/dL (11.5-15.3) L 10/13/21 18:50 Hct 34.2 % (37.0-47.0) L 10/13/21 18:50 MCV 88.4 fl (81-99) 10/13/21 18:50 MCH 28.2 pg (28.0-34.0) 10/13/21 18:50 MCHC 31.9 g/dL (30.0-36.0) 10/13/21 18:50 RDW 13.9 % (12.1-15.1) 10/13/21 18:50 Plt Count 280 10^3/cmm (130-400) 10/13/21 18:50 MPV 9.1 fL (7.4-10.4) 10/13/21 18:50 Neut % (Auto) 58.0 % 10/13/21 18:50 Lymph % (Auto) 31.3 % 10/13/21 18:50 [place] % (Auto) 6.9 % 10/13/21 18:50 Eos % (Auto) 2.5 % 10/13/21 18:50 Baso % (Auto) 1.1 % 10/13/21 18:50 Neut # (Auto) 4.64 10^3/uL (1.8-7.7) 10/13/21 18:50 Lymph # (Auto) 2.5 10^3/uL (0.8-4.8) 10/13/21 18:50 [place] # (Auto) 0.6 10^3/uL (0.2-0.9) 10/13/21 18:50 Eos # (Auto) 0.2 10^3/uL (0.0-0.8) 10/13/21 18:50 Baso # (Auto) 0.1 10^3/uL (0.0-0.1) 10/13/21 18:50 Nucleated RBC % (auto) 0 % 10/13/21 18:50 Nucleated RBCs # 0.0 /100WBC 10/13/21 18:50 Sodium 139 mmol/L (136-145) 10/13/21 18:50 Potassium 3.7 mmol/L (3.5-5.1) 10/13/21 18:50 Chloride 103 mmol/L (98-107) 10/13/21 18:50 Carbon Dioxide 24 mmol/L (22-29) 10/13/21 18:50 Anion Gap 15.7 (5-19) 10/13/21 18:50 BUN 28 mg/dL (8-23) H 10/13/21 18:50 Creatinine 1.1 mg/dL (0.5-0.9) H 10/13/21 18:50 GFR Calculation Not Reportable 10/13/21 18:50 Glucose 106 mg/dL (65-115) 10/13/21 18:50 Calculated Osmolality 294 mOsm/kg (285-295) 10/13/21 18:50 Calcium 9.8 mg/dL (8.5-10.5) 10/13/21 18:50 Total Bilirubin 0.2 mg/dL (0.15-1.2) 10/13/21 18:50 AST 14 U/L (0-32) 10/13/21 18:50 ALT 9 U/L (0-33) 10/13/21 18:50 Alkaline Phosphatase 60 IU/L (35-105) 10/13/21 18:50 Troponin T Baseline 12 ng/L (0-10) H 10/13/21 18:50 Troponin T 120 Minute 9.78 ng/L (0-10) 10/13/21 20:25 Total Protein 7.3 g/dL (6.6-8.7) 10/13/21 18:50 Albumin 4.5 g/dL (3.5-5.2) 10/13/21 18:50 Globulin 2.8 g/dL (1.3-4.6) 10/13/21 18:50 Lipase 60 U/L (13-60) 10/13/21 20:25 EKG Data EKG 1: I personally reviewed and interpreted this EKG as follows: EKG interpretation date: 10/13/21 EKG interpretation time: 19:47 Interpretation: nsr hr [address] or t wave abnormaltieis qrs 81 qtc 431 EKG 2: I personally reviewed and interpreted this EKG as follows: EKG interpretation date: 10/13/21 EKG interpretation time: 19:47 Interpretation: nsr hr [address] or t wave abnormalities qrs 81 qtc 431 Discharge Plan Discharge Patient Disposition: Home Clinical Impression: Chest pain Condition: Stable Prescriptions: New hydrocodone-acetaminophen 5-325 mg tablet 1 tab PO Q6H PRN (Reason: pain) Qty: 14 0RF No Action isosorbide mononitrate 30 mg tablet extended release 24 hr 15 mg PO BID Qty: 90 3RF lisinopril 10 mg tablet 5 mg PO DAILY Qty: 90 3RF furosemide 40 mg tablet 40 mg PO DAILY Qty: 90 3RF potassium chloride [Klor-Con M20] 20 mEq tablet,ER particles/crystals 20 meq PO DAILY Qty: 30 0RF Rx Instructions: Take while taking furosemide 80mg daily, when dose reduced may resume OTC potassium. nitroglycerin [Nitrostat] 0.4 mg tablet, sublingual 0.4 mg sublingual Q5M PRN (Reason: chest pain) Qty: 25 1RF Rx Instructions: do not exceed 3 doses per episode rosuvastatin 20 mg tablet 20 mg PO DAILY Qty: 90 3RF metoprolol tartrate 25 mg tablet 12.5 mg PO BID Qty: 90 3RF diclofenac sodium 75 mg tablet,delayed release (DR/EC) 75 mg PO BID PRN (Reason: pain) Qty: 20 0RF Rx Instructions: Take 1 tablet twice daily as needed for pain sertraline 100 mg tablet 100 mg PO DAILY 0RF clopidogrel [Plavix] 75 mg Tablet 75 mg PO DAILY 0RF Rx Instructions: [facility] LAST FILLED ON 08/24/2019-[facility] @ [facility] STATES THEY FAXED FOR REFILLS AND NEVER GOT A RESPONSE-PT STATES SHE IS UNSURE IF SHE IS STILL TAKING-CALLED HEART CARE SERVICES AND NO ONE ANSWERED omeprazole 40 mg capsule,delayed release(DR/EC) 40 mg PO DAILY 0RF Aspir-81 81 mg Tablet,Delayed Release (Dr/Ec) 81 mg PO DAILY 0RF Tylenol Extra Strength 500 mg Tablet 1,000 mg PO PRN 0RF Calcium 500 500 mg calcium (1,250 mg) Tablet 500 mg PO DAILY 0RF gabapentin 300 mg capsule 300 mg PO BEDTIME 0RF Vitamin B-12 1 tab PO DAILY 0RF Discharge Orders: Discharge ED (Routine); Ordered 10/13/21 Ordered By: Sorin Garber Referrals: Annel Gill PA [Primary Care Provider] - 1-3 days Discharge Diet: Advance as tolerated Discharge Activity: Resume usual activity Patient Instructions: Chest Pain (ED), Opioid Safety Coding Level of Care Code ED Certified Nurse Aide for Chg Fwd Exam Comprehensive
[2021-10-13 18:56] LABS: Basophils # 0.1 10^3/uL (0.0-0.1); Basophils % 1.1 %; Eosinophils # 0.2 10^3/uL (0.0-0.8); Eosinophils % 2.5 %; Hematocrit 34.2 % (37.0-47.0); Hemoglobin 10.9 g/dL (11.5-15.3); Lymphocytes # 2.5 10^3/uL (0.8-4.8); Lymphocytes % 31.3 %; Mean Corpuscular HGB Conc 31.9 g/dL (30.0-36.0); Mean Corpuscular Hemoglobin 28.2 pg (28.0-34.0); Mean Corpuscular Volume 88.4 fl (81-99); Mean Platelet Volume 9.1 fL (7.4-10.4); Monocytes # 0.6 10^3/uL (0.2-0.9); Monocytes % 6.9 %; Neutrophils # 4.64 10^3/uL (1.8-7.7); Nucleated Red Blood Cells % 0 %; Platelet Count 280 10^3/cmm (130-400); Red Blood Count 3.87 10^6/uL (4.1-5.3); Red Cell Distribution Width 13.9 % (12.1-15.1)
[2021-10-13] MEDS: ondansetron 2 mg/ML SDV 2 mL 4 MG IVP (19:04)
[2021-10-13] MEDS: morphine 4 mg/mL SDV 1 mL IVP ×2 (19:04→20:24)
[2021-10-13 19:30] LABS: Alanine Aminotransferase 9 U/L (0-33); Albumin Level 4.5 g/dL (3.5-5.2); Alkaline Phosphatase 60 IU/L (35-105); Anion Gap 15.7 (5-19); Aspartate Amino Transferase 14 U/L (0-32); Blood Urea Nitrogen 28 mg/dL (8-23); Calcium 9.8 mg/dL (8.5-10.5); Carbon Dioxide 24 mmol/L (22-29); Chloride 103 mmol/L (98-107); Globulin 2.8 g/dL (1.3-4.6); Glucose 106 mg/dL (65-115); Osmolality Calculated 294 mOsm/kg (285-295); Potassium 3.7 mmol/L (3.5-5.1); Sodium 139 mmol/L (136-145); Total Bilirubin 0.2 mg/dL (0.15-1.2); Total Protein 7.3 g/dL (6.6-8.7); Troponin(5th) Baseline 12 ng/L (0-10)
[2021-10-13 20:09] VITALS: BP 166/85; PULSE 55; RESP 15; O2SAT 96
[2021-10-13 20:24] VITALS: RESP 16; O2SAT 96
--- NOTE | 2021-10-13 20:30 | ECG_ITS ---
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 Measurements Intervals [place] Rate: 60 P: 40 LA: 176 QRS: 59 QRSD: 81 T: 60 QT: 431 QTc: 432 Interpretive Statements SINUS RHYTHM Compared to ECG 02/08/2020 13:28:24 T-wave abnormality no longer present Electronically Signed On 10-13-2021 20:41:37 BOOMSWING OPERATOR by Julieta Adhikari M.D. [id number]
[2021-10-13 20:47] LABS: Lipase 60 U/L (13-60)
[2021-10-13 20:49] LABS: Troponin 5 2HR 9.78 ng/L (0-10)
[2021-10-13 21:27] LABS: Troponin 5 2HR Delta -2.22 ABS# (0-10)
[2021-10-13 21:29] VITALS: BP 169/94; PULSE 64; RESP 18; O2SAT 97
== END 2021-10-13 21:30 | disposition home or self-care (01) ==
PROVIDERS: Emergency Provider Emergency Medicine; PCP Physician Assistant
DX: R07.9 Chest pain, unspecified (principal); Z79.82 Long term (current) use of aspirin; E11.9 Type 2 diabetes mellitus without complications; I11.0 Hypertensive heart disease with heart failure; I50.9 Heart failure, unspecified
CPT/HCPCS: 71045; 80053; 83690; 84484; 85025; 93005; 96374; 96375; 96376; 99284; J2270; J2405

== ENCOUNTER → 2021-12-01 15:18 | Outpatient (BNVA) | payer MEDICARE, MEDICAID, SELFPAY | PROVIDERS: PCP Physician Assistant; Visit Provider Internal Medicine Cardiovascular Disease | DX: I11.0 Hypertensive heart disease with heart failure (principal); I50.9 Heart failure, unspecified; E78.49 Other hyperlipidemia; E11.9 Type 2 diabetes mellitus without complications; R07.9 Chest pain, unspecified; I25.10 Atherosclerotic heart disease of native coronary artery without angina pectoris | CPT/HCPCS: 99214 ==

== ENCOUNTER → 2022-06-07 14:06 | Outpatient (BNVA) | payer MEDICARE, MEDICAID, SELFPAY | PROVIDERS: PCP Physician Assistant; Visit Provider Internal Medicine Cardiovascular Disease | DX: R07.9 Chest pain, unspecified (principal); I25.10 Atherosclerotic heart disease of native coronary artery without angina pectoris; I11.0 Hypertensive heart disease with heart failure; I50.9 Heart failure, unspecified | CPT/HCPCS: 99214 ==

== ENCOUNTER 2022-12-10 10:09 | Outpatient (CLI) | payer MEDICARE, MEDICAID, SELFPAY ==
--- NOTE | 2022-12-10 10:18 | FL_ITS ---
WS: [id number] ESOPHAGRAM TECHNIQUE: Double contrast examination was performed with thin and thick barium. Upright and COREY imag es were obtained. CLINICAL INFORMATION: DYSPHAGIA COMPARISON: None. FINDINGS: Cholecystectomy clips. Moderate spondylitic changes cervical spine. Slightly prominent ante rior osteophytes at C3-C4. Swallowing: No evidence of aspiration or penetration. Esophagus: Mild esophageal dysmotility. No evidence of high-grade stricture or obstructing mass. Gastroesophageal reflux: No significant hiatal hernia. Mild reflux is visualized into the thoracic es ophagus more prominent on the supine imaging. Fluoroscopy time: 3min [id number] # of spot films: 9 FL/FL barium swallow [id number] IMPRESSION: 1. Mild esophageal dysmotility. No obstructing stricture or mass. 2. No aspiration penetration. 3. No significant esophageal hiatal hernia. 4. Mild reflux is visualized on the supine imaging to the thoracic esophagus. 5. Slightly prominent anterior osteophytes at C3-C4. 6. No other suspicious findings.
== END 2022-12-10 10:10 | disposition home or self-care (01) ==
LOC: RAD 10:11
PROVIDERS: PCP Physician Assistant; Visit Provider Physician Assistant
DX: R13.10 Dysphagia, unspecified (principal); K22.4 Dyskinesia of esophagus
CPT/HCPCS: 74220

== ENCOUNTER 2023-01-30 15:15 | Inpatient (IN) | payer MEDICARE, MEDICAID, SELFPAY ==
[2023-01-30] VITALS (30 sets, daily range): BP systolic 111–149; BP diastolic 56–100; PULSE 78–98; RESP 16–26; TEMP 36.6–36.9; O2SAT 84–100; BMI 28.3
--- NOTE | 2023-01-30 15:39 | CTR_ITS ---
PROCEDURE INFORMATION: Exam: CT Abdomen And Pelvis Without Contrast Exam date and time: 01/30/2023 4:59 PM Age: 77 years old Clinical indication: Abdominal pain; Generalized; Additional info: Abd pain TECHNIQUE: Imaging protocol: Computed tomography of the abdomen and pelvis without contrast. Radiation optimization: All CT scans at this facility use at least one of these dose optimization techniques: automated exposure control; mA and/or kV adjustment per patient size (includes targeted exams where dose is matched to clinical indication); or iterative reconstruction. REPORTING DATA: Count of CT and Cardiac NM exams in prior 12 months: This patient has received 0 known CTs and 0 known cardiac nuclear medicine studies in the 12 months prior to the current study. COMPARISON: CT abdomen pelvis w con* [id number] 02/08/2020 12:29 PM RADIATION DOSE METRICS: Total DLP (mGy-cm): 557.86 FINDINGS: Lungs: Mild subsegmental atelectasis left lingula and posteriorly right lung base developed from previous exam. Heart: Heart is mildly enlarged. Evidence of previous coronary artery bypass graft. Liver: Normal. No mass. Gallbladder and bile ducts: Gallbladder has been removed. Bile ducts are not appreciably dilated. Pancreas: Normal. No ductal dilation. Spleen: Normal. No splenomegaly. Adrenal glands: Normal. No mass. Kidneys and ureters: Mild perinephric stranding bilaterally that has developed that is often secondary to chronic kidney disease. 3 cm benign-appearing left renal cyst increased in size. Stomach and bowel: Mild increased bowel gas within the non dependent portion of the small and large bowel loops likely secondary to mild ileus. Appendix: No evidence of acute appendicitis. Intraperitoneal space: Unremarkable. No free air. No significant fluid collection. Vasculature: Abdominal aorta and iliac vessels are diffusely calcified. There is no aortic aneurysm. Lymph nodes: Unremarkable. No enlarged lymph nodes. Urinary bladder: Unremarkable as visualized. Reproductive: Uterus has been removed. There is 5.5 x 3.0 cm oval-shaped cystic structure right adnexa presumed ovarian in origin that has developed. Bones/joints: Multilevel degenerative endplate osteophytes lower thoracic spine likely secondary to DISH. Soft tissues: Unremarkable. CT/CT abdomen pelvis wo con [id number] IMPRESSION: 1. No acute findings within the abdomen or pelvis. 2. 5.5 x 3.0 cm right ovarian cyst developed from previous exam. In view of patient's age would recommend follow-up nonemergent pelvic ultrasound for further evaluation. 3. Interval development of bilateral perinephric fluid/fat stranding likely secondary to chronic kidney disease.
--- NOTE | 2023-01-30 15:39 | XRR_ITS ---
PROCEDURE INFORMATION: Exam: XR Chest Exam date and time: 01/30/2023 3:54 PM Age: 77 years old Clinical indication: Shortness of breath; Additional info: SOB TECHNIQUE: Imaging protocol: Radiologic exam of the chest. Views: 1 view. COMPARISON: CR XR chest 2V* [id number] 01/18/2023 3:01 PM FINDINGS: Lungs: Unremarkable. No consolidation. Pleural spaces: Unremarkable. No pleural effusion. No pneumothorax. Heart/Mediastinum: Cardiomegaly. Bones/joints: Severe arthritic changes in the shoulders, right greater than left. XR/XR chest 1V portable [id number] IMPRESSION: No acute findings.
--- NOTE | 2023-01-30 15:42 | ED_ITS ---
HPI - Abdominal Pain General: Chief Complaint: Abdominal Pain Stated Complaint: N/V; ABD PAIN Time Seen by Provider: 01/30/23 15:28 Source: patient and family History of Present Illness: Patient was transported to the emergency department from her home by EMS. She apparently has been having worsening of abdominal pain with repetitive vomiting and diarrhea that has progressed over the last 2 days. Family reports that she has had repetitive vomiting and she has been using a lot of Zofran. She has not been able to take her other usual medications. No known exposure to infectious disease. No recent travel. No bad food exposure. She does have a history of coronary disease but denies any chest pain. She has had chills but no documented elevated temperature. She had a prior hysterectomy as well as a cholecystectomy. No history of other infectious disease exposure, tick bites etc. Associated Symptoms: Reports chills, nausea and vomiting; Denies dysuria, fever(s), hematochezia, hematemesis and syncope Review of Systems Const: Reports: chills and change in appetite; Denies: fever(s) Eyes: Denies: change in vision ENMT: Denies: throat pain, odynophagia, nasal discharge or nasal congestion Card: Denies: chest pain, palpitations, irregular heart rhythm, syncope or pre-syncope Resp: Denies: dyspnea, productive cough or non-productive cough GI: Reports: abdominal pain, nausea and vomiting; Denies: hematemesis or hematochezia : Denies: flank pain, difficulty voiding, dysuria or urinary frequency Musc: Denies: neck pain, back pain, extremity pain or extremity swelling Skin/Breast: Denies: rash Neuro: Denies: numbness in extremities or weakness in extremities Psych: Denies: anxiety PFSH ED PFSH: Medical History CAD (coronary artery disease) Diabetes mellitus Heart failure HLD (hyperlipidemia) Hypertension Peptic ulcer disease Renal failure Surgical History H/O: hysterectomy History of percutaneous coronary intervention Social History Smoking and tobacco status: never smoked Household members: spouse Marital status: Physical Exam Narrative: EXAM NARRATIVE: Patient is alert appears to be somewhat uncomfortable but is able to answer all questions appropriately. Const: COMMON NORMALS: average body habitus, patient oriented x3 and alert GENERAL APPEARANCE: cooperative ORIENTATION/CONSCIOUSNESS: Yes awake HENMT: COMMON NORMALS: normocephalic and Normal nasal mucous membranes and turbinates present HEAD & SCALP: normocephalic FACE & SINUS: normal facial exam NOSE: Normal nasal mucous membranes and turbinates present MOUTH: moist mucous membranes abnormal (Dry mucous membranes) and Abnormal oral and palatal mucosa present TEETH & GINGIVA: Yes poor dentition Eye: COMMON NORMALS: Equal, round and reactive pupils present, conjunctivae normal and no scleral icterus CONJUNCTIVA: Yes conjunctivae normal PUPIL: Yes Equal, round and reactive pupils present Neck/C-Spine: COMMON NORMALS: full ROM, no JVD and No carotid bruits Chest: COMMONS NORMALS: normal inspection of the chest and normal palpation of entire chest wall Resp: COMMON NORMALS: normal respiratory effort, No retractions, No use of accessory muscles and clear to auscultation bilaterally AUSCULTATION: clear to auscultation bilaterally Cardio: COMMON NORMALS: no JVD, regular rate, No murmurs present (Cardio) and Peripheral pulses 2+ throughout RATE: regular rate PERIPHERAL PULSES: Peripheral pulses 2+ throughout GI: COMMON NORMALS: Normal to inspection, nondistended, normoactive bowel sounds present, no masses and no bruits PALPATION: Yes Tenderness to palpation present (GI) : COMMON NORMALS: Yes no CVA tenderness BLADDER/KIDNEY EXAM: Yes no CVA tenderness Back/Pelvis: COMMON NORMALS: no CVA tenderness, thoracic and lumbar spine normal to inspection and no thoracic nor lumbar tenderness Extremity: COMMON NORMALS: normal to inspection, full ROM, capillary refill normal, no calf tenderness and no pedal edema Neuro: COMMON NORMALS: patient oriented x3, moves all extremities, no focal motor deficits and no sensory deficits noted SENSORIUM/ORIENTATION: Yes alert CRANIAL NERVES: Yes CN normal except as noted Psych: COMMON NORMALS: mental status grossly normal Skin: COMMON NORMALS: no rashes or lesions noted, no wounds and turgor normal GENERAL SKIN EXAM: no rashes or lesions noted and turgor normal Course Reevaluation(s): Reevaluation #1: Patient clinically looks improved. She was able to drink her potassium replacement without any difficulty. I discussed findings with both she and her family and we will plan on placing her in the hospital continue IV antibiotics, fluid resuscitation, potassium replacement. I suspect her troponin elevation is not likely due to ACS or any other acute myocardial injury at this time given her lack of symptoms and lack of EKG changes. Time: 17:38 Vital Signs: Vital signs: Vital Signs Temperature 97.8 F 01/30/23 15:16 Pulse Rate 81 01/30/23 16:22 Respiratory Rate 18 01/30/23 15:39 Blood Pressure 124/56 01/30/23 16:22 Pulse Oximetry 98 01/30/23 16:22 Oxygen Delivery Me thod Room Air 01/30/23 16:22 MDM - Abdominal Pain Medical Decision Making Patient came to the emergency department because of various somatic symptoms including abdominal pain vomiting and diarrhea over the past 2+ weeks. Evaluation did not reveal any evidence of peritoneal signs however work-up ensued to ensure that no evidence of bowel obstruction, pyelonephritis, other intra-abdominal process and in addition to her work-up to ensure no evidence of ACS or other emergent medical conditions. She was given fluid resuscitation electrolyte replacement and antibiotics to cover her pyelonephritis as well as her hypokalemia. No evidence of arrhythmias necessitating aggressive replacement other than the standard replacement. There was a slight elevation in troponin likely due to her renal insufficiency and poor renal clearance. Patient is being admitted to the medicine service in stable condition. Lab Data I reviewed the patient's lab results. 01/30/23 15:41 01/30/23 15:41 Labs/Radiology: Radiology Impressions Abdomen/Pelvis CT 01/30/23 15:39 IMPRESSION: 1. No acute findings within the abdomen or pelvis. 2. 5.5 x 3.0 cm right ovarian cyst developed from previous exam. In view of patient's age would recommend follow-up nonemergent pelvic ultrasound for further evaluation. 3. Interval development of bilateral perinephric fluid/fat stranding likely secondary to chronic kidney disease. Chest X-Ray 01/30/23 15:39 IMPRESSION: No acute findings. Laboratory Results WBC 18.4 10^3/uL (4.0-10.0) H 01/30/23 15:41 RBC 3.87 10^6/uL (4.1-5.3) L 01/30/23 15:41 Hgb 9.1 g/dL (11.5-15.3) L 01/30/23 15:41 Hct 29.3 % (37.0-47.0) L 01/30/23 15:41 MCV 75.7 fl (81-99) L 01/30/23 15:41 MCH 23.5 pg (28.0-34.0) L 01/30/23 15:41 MCHC 31.1 g/dL (30.0-36.0) 01/30/23 15:41 RDW 17.0 % (12.1-15.1) H 01/30/23 15:41 Plt Count 270 10^3/cmm (130-400) 01/30/23 15:41 MPV 9.0 fL (7.4-10.4) 01/30/23 15:41 Neut % (Auto) 88.0 % 01/30/23 15:41 Lymph % (Auto) 2.6 % 01/30/23 15:41 [place] % (Auto) 4.4 % 01/30/23 15:41 Eos % (Auto) 0.3 % 01/30/23 15:41 Baso % (Auto) 0.3 % 01/30/23 15:41 Neut # (Auto) 16.18 10^3/uL (1.8-7.7) H 01/30/23 15:41 Lymph # (Auto) 0.5 10^3/uL (0.8-4.8) L 01/30/23 15:41 [place] # (Auto) 0.8 10^3/uL (0.2-0.9) 01/30/23 15:41 Eos # (Auto) 0.1 10^3/uL (0.0-0.8) 01/30/23 15:41 Baso # (Auto) 0.1 10^3/uL (0.0-0.1) 01/30/23 15:41 Nucleated RBC % (auto) 0 % 01/30/23 15:41 Nucleated RBCs # 0.0 /100WBC 01/30/23 15:41 Sodium 132 mmol/L (136-145) L 01/30/23 15:41 Potassium 2.6 mmol/L (3.5-5.1) L* 01/30/23 15:41 Chloride 96 mmol/L (98-107) L 01/30/23 15:41 Carbon Dioxide 22 mmol/L (22-29) 01/30/23 15:41 Anion Gap 16.6 (5-19) 01/30/23 15:41 BUN 21 mg/dL (8-23) 01/30/23 15:41 Creatinine 1.7 mg/dL (0.5-0.9) H 01/30/23 15:41 GFR Calculation Not Reportable 01/30/23 15:41 Glucose 137 mg/dL (65-115) H 01/30/23 15:41 Calculated Osmolality 279 mOsm/kg (285-295) L 01/30/23 15:41 Calcium 8.4 mg/dL (8.5-10.5) L 01/30/23 15:41 Total Bilirubin 0.7 mg/dL (0.15-1.2) 01/30/23 15:41 AST 30 U/L (0-32) 01/30/23 15:41 ALT 18 U/L (0-33) 01/30/23 15:41 Alkaline Phosphatase 120 U/L (35-105) H 01/30/23 15:41 Troponin T Baseline 134 ng/L (0-10) H* 01/30/23 15:41 Total Protein 6.9 g/dL (6.6-8.7) 01/30/23 15:41 Albumin 3.2 g/dL (3.5-5.2) L 01/30/23 15:41 Globulin 3.7 g/dL (1.3-4.6) 01/30/23 15:41 Lipase 18 U/L (13-60) 01/30/23 15:41 TSH 1.07 uIU/mL (0.27-4.20) 01/30/23 15:41 Urine Color Yellow (Yellow) 01/30/23 16:05 Urine Appearance Sl hazy (CLEAR) A 01/30/23 16:05 Urine pH 6.5 (5-7) 01/30/23 16:05 Ur Specific [place] 1.005 (1.005-1.030) 01/30/23 16:05 Urine Protein 3+ (Negative) H 01/30/23 16:05 Urine Glucose (UA) Norm (Normal) 01/30/23 16:05 Urine Ketones 1+ (Negative) H 01/30/23 16:05 Urine Blood 3+ (Negative) H 01/30/23 16:05 Urine Nitrate Positive (Negative) H 01/30/23 16:05 Urine Bilirubin Neg (Negative) 01/30/23 16:05 Urine Urobilinogen Norm mg/dL (Negative) 01/30/23 16:05 Ur Leukocyte Esterase 2+ (Negative) H 01/30/23 16:05 Urine RBC 0-4 /hpf (0-2) H 01/30/23 16:05 Urine WBC Too numerous to cnt /hpf (0-5) H 01/30/23 16:05 Ur Squamous Epith Cells Rare /hpf (0-5) 01/30/23 16:05 Amorphous Sediment Not Reportable 01/30/23 16:05 Urine Bacteria 2+ /hpf (NONE) H 01/30/23 16:05 EKG Data EKG 1: I personally reviewed and interpreted this EKG as follows: Interpretation: Resting EKG reveals a sinus rhythm of 99 bpm. NE interval is normal, QRS duration is normal, corrected QT normal. Normal axis. Has some very minimal nonspecific ST-T wave changes noted.No significant change from prior tracing within the system. Discharge Plan Discharge Condition: Stable Prescriptions: No Action ibuprofen 800 mg tablet 800 mg PO BID cyclobenzaprine 5 mg tablet 5 mg PO TID PRN potassium chloride [Klor-Con M20] 20 mEq tablet,ER particles/crystals 20 meq PO DAILY Qty: 30 0RF Rx Instructions: Take while taking furosemide 80mg daily, when dose reduced may resume OTC potassium. lisinopril 10 mg tablet 5 mg PO DAILY Qty: 90 3RF metoprolol tartrate 25 mg tablet 12.5 mg PO BID Qty: 90 3RF isosorbide mononitrate 30 mg tablet extended release 24 hr 15 mg PO BID Qty: 90 3RF rosuvastatin 20 mg tablet 20 mg PO DAILY Qty: 90 3RF furosemide 40 mg tablet 40 mg PO DAILY Qty: 90 3RF nitroglycerin [Nitrostat] 0.4 mg tablet, sublingual 0.4 mg sublingual Q5M PRN (Reason: chest pain) Qty: 25 1RF Rx Instructions: do not exceed 3 doses per episode diclofenac sodium 75 mg tablet,delayed release (DR/EC) 75 mg PO BID PRN (Reason: pain) Qty: 20 0RF Rx Instructions: Take 1 tablet twice daily as needed for pain sertraline 100 mg tablet 100 mg PO DAILY clopidogrel [Plavix] 75 mg Tablet 75 mg PO DAILY Rx Instructions: [facility] LAST FILLED ON 08/24/2019-[facility] STATES THEY FAXED FOR REFILLS AND NEVER GOT A RESPONSE-PT STATES SHE IS UNSURE IF SHE IS STILL T AKING-CALLED HEART CARE SERVICES AND NO ONE ANSWERED omeprazole 40 mg capsule,delayed release(DR/EC) 40 mg PO DAILY Aspir-81 81 mg Tablet,Delayed Release (Dr/Ec) 81 mg PO DAILY Calcium 500 500 mg calcium (1,250 mg) Tablet 500 mg PO DAILY gabapentin 300 mg capsule 300 mg PO BEDTIME Vitamin B-12 1 tab PO DAILY Referrals: Annel Gill PA [Primary Care Provider] - Coding Level of Care Code ED Medical Care Administrator for Marlene Brewster
--- NOTE | 2023-01-30 15:51 | ECG_ITS ---
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 Measurements Intervals [place] Rate: 99 P: 40 MO: 148 QRS: 65 QRSD: 89 T: 28 QT: 395 QTc: 508 Interpretive Statements SINUS RHYTHM WITH SINUS ARRHYTHMIA NONSPECIFIC ST & T-WAVE ABNORMALITY Compared to ECG 10/13/2021 19:47:30 T-wave abnormality now present Electronically Signed On 01-31-2023 11:08:49 CDT by Julieta Adhikari M.D. [email or web address] [id number] f
[2023-01-30 16:01] LABS: Basophils # 0.1 10^3/uL (0.0-0.1); Basophils % 0.3 %; Eosinophils # 0.1 10^3/uL (0.0-0.8); Eosinophils % 0.3 %; Hematocrit 29.3 % (37.0-47.0); Hemoglobin 9.1 g/dL (11.5-15.3); Lymphocytes # 0.5 10^3/uL (0.8-4.8); Lymphocytes % 2.6 %; Mean Corpuscular HGB Conc 31.1 g/dL (30.0-36.0); Mean Corpuscular Hemoglobin 23.5 pg (28.0-34.0); Mean Corpuscular Volume 75.7 fl (81-99); Monocytes # 0.8 10^3/uL (0.2-0.9); Monocytes % 4.4 %; Neutrophils # 16.18 10^3/uL (1.8-7.7); Nucleated Red Blood Cells % 0 %; Platelet Count 270 10^3/cmm (130-400); Red Blood Count 3.87 10^6/uL (4.1-5.3); White Blood Count 18.4 10^3/uL (4.0-10.0)
[2023-01-30] MEDS: lactated ringers 1,000 ML 999 ML IV (16:09)
[2023-01-30 16:21] LABS: Specific Gravity, Urine 1.005 (1.005-1.030); Urine Appearance SL Hazy (CLEAR); Urine Color Yellow (Yellow); pH Urine 6.5 (5-7)
[2023-01-30 16:22] LABS: Add Urine Culture? Yes; Add Urine Microscopic? YES; Bacteria Urine 2+ /hpf; Bilirubin Urine Neg (Negative); Blood Urine 3+ (Negative); Glucose Urine UA Norm (Normal); Ketones Urine 1+ (Negative); Leukocyte Esterase Urine 2+ (Negative); Nitrate Urine Positive (Negative); Protein Urine 3+ (Negative); RBC Urine 0-4 /hpf (0-2); Squamous Epithelial Cell Urine RARE /hpf (0-5); Urobilinogen Urine Norm (Negative); WBC Urine TOO NUMEROUS TO CNT /hpf (0-5)
[2023-01-30 16:36] LABS: Troponin(5th) Baseline 134 ng/L (0-10)
[2023-01-30 16:40] LABS: Alanine Aminotransferase 18 U/L (0-33); Albumin Level 3.2 g/dL (3.5-5.2); Alkaline Phosphatase 120 U/L (35-105); Anion Gap 16.6 (5-19); Aspartate Amino Transferase 30 U/L (0-32); Blood Urea Nitrogen 21 mg/dL (8-23); Calcium 8.4 mg/dL (8.5-10.5); Carbon Dioxide 22 mmol/L (22-29); Chloride 96 mmol/L (98-107); Globulin 3.7 g/dL (1.3-4.6); Glucose 137 mg/dL (65-115); Lipase 18 U/L (13-60); Osmolality Calculated 279 mOsm/kg (285-295); Sodium 132 mmol/L (136-145); Thyroid Stimulating Hormone 1.07 uIU/mL (0.27-4.20); Total Bilirubin 0.7 mg/dL (0.15-1.2); Total Protein 6.9 g/dL (6.6-8.7)
[2023-01-30 16:47] LABS: Potassium 2.6 mmol/L (3.5-5.1)
[2023-01-30] MEDS: cefTRIAXone 2,000 MG in sodium chloride 0.9% (plus) 50 ML 100 MG IV (16:55)
[2023-01-30] MEDS: aspirin 81 mg Chew Tablet 324 MG PO (16:55)
[2023-01-30] MEDS: aspirin 81 mg Chew Tablet PO (17:28)
[2023-01-30] MEDS: potassium bicarb 25 mEq Tablet 50 MEQ PO (17:29)
--- NOTE | 2023-01-30 17:44 | P.HP_ITS ---
Providers/Chief Complaint Admitting Physician: Dr. Pollo Barcenas Primary Care Provider: Annel Gill Chief Complaint: N/V; ABD PAIN History of Present Illness Patricia Benito is a 77yo F with Hx of HFpEF, CAD with 2 stents (2019) on DAPT, HTN, HLD, GERD, OA and possible DM2 presented to ED with worsenig abdominal pain. Onset of symptoms 3dpta. Describes abd pain associated with persistent nonbloody emesis and diarrhea. No improvement with PO zofran. unable to take home medications. Denies exposure to sick contacts, new medications, recent tick bites, known food poisoning events, recent travel. says she has had chills, sweats, subjective fevers and ice cold at times . Emesis 3-5x/day, last emesis with EMS. States she has had some diarrhea with some black stool but admits to being on PO iron pills which turned her stool black . Was anemic per PCP, possibly iron deficient per patient and diagnosed 1 week ago. Generalized abdominal pain, bilateral flak pain but worse on L. In ED pt's hgb was 9.1, WBC 18.4, K 2.6, Na 132, Cr. 1.7, Trop elevated. CT abd/pelvis showed bilateral perinephric fluid/fat stranding. new 5.5cm x 3cm R ovarian cyst. CXR showing no PNA. Review of Systems General: Reports: 10 or more systems reviewed and unremarkable except in HPI and below Const: Reports: fever(s), chills, body aches, fatigue and night sweats Eyes: Denies: change in vision or blurry vision ENMT: Denies: throat pain, odynophagia or hoarseness Card: Denies: chest pain, palpitations or dyspnea on exertion Resp: Denies: dyspnea, productive cough, non-productive cough or wheezing GI: Reports: abdominal pain, nausea and vomiting; Denies: coffee ground emesis, heartburn, diarrhea, constipation, hematochezia or melena : Reports: flank pain, dysuria, urinary frequency and urinary urgency; Denies: difficulty voiding Musc: Denies: neck pain, back pain or joint pain Skin/Breast: Denies: rash or new lesions Neuro: Denies: headache(s), numbness in extremities or weakness in extremities Medications/Allergies Home Medications Medication Instructions Recorded Confirmed Last Taken Type Vitamin B-12 1 tab PO DAILY 02/08/20 08/24/21 02/07/20 History aspirin 81 mg tablet,delayed 81 mg PO DAILY 02/08/20 08/24/21 02/07/20 History release (Aspir-) calcium carbonate 500 mg calcium 500 mg PO DAILY 02/08/20 08/24/21 02/07/20 History (1,250 mg) tablet (Calcium 500) clopidogrel 75 mg tablet (Plavix) 75 mg PO DAILY 02/08/20 08/24/21 Unknown History gabapentin 300 mg capsule 300 mg PO BEDTIME 02/08/20 08/24/21 02/07/20 History omeprazole 40 mg capsule,delayed 40 mg PO DAILY 02/08/20 08/24/21 02/07/20 History release sertraline 100 mg tablet 100 mg PO DAILY 02/08/20 08/24/21 02/07/20 History diclofenac sodium 75 mg 75 mg PO BID PRN pain #20 tabs 09/11/20 08/24/21 Unknown Rx tablet,delayed release potassium chloride 20 mEq 20 meq PO DAILY #30 tabs 02/25/21 08/24/21 Unknown Rx tablet,extended release(part/cryst) (Klor-Con M) lisinopril 10 mg tablet 5 mg PO DAILY #90 tabs 05/14/22 Unknown Rx cyclobenzaprine 5 mg tablet 5 mg PO TID PRN 06/07/22 Unknown History ibuprofen 800 mg tablet 800 mg PO BID 06/07/22 Unknown History metoprolol tartrate 25 mg tablet 12.5 mg PO BID #90 tabs 10/11/22 Unknown Rx furosemide 40 mg tablet 40 mg PO DAILY #90 tabs 11/09/22 Unknown Rx isosorbide mononitrate 30 mg 15 mg PO BID #90 tabs 11/09/22 Unknown Rx tablet,extended release 24 hr rosuvastatin 20 mg tablet 20 mg PO DAILY #90 tabs 11/09/22 Unknown Rx nitroglycerin 0.4 mg sublingual 0.4 mg sublingual Q5M PRN chest 01/10/23 Unkno wn Rx tablet (Nitrostat) pain #25 tabs Allergies Allergy/AdvReac Type Severity Reaction Status Date / Time No Known Allergies Allergy Verified 01/30/23 15:23 PFSH Acute PFSH: Medical History (Updated 01/30/23 @ 18:14 by Pollo Barcenas MD) CAD (coronary artery disease) Diabetes mellitus Heart failure HLD (hyperlipidemia) Hypertension Peptic ulcer disease Renal failure Surgical History (Updated 01/30/23 @ 17:58 by Pollo Barcenas MD) H/O: hysterectomy History of coronary artery stent placement History of percutaneous coronary intervention Social History Smoking and tobacco status: never smoked Household members: spouse Marital status: Vitals/I&O/Wt Last Vital Signs Temp 97.8 F 01/30/23 15:16 Pulse 88 01/30/23 17:40 Resp 19 H 01/30/23 17:40 BP 120/85 01/30/23 17:40 Pulse Ox 98 01/30/23 17:40 O2 Del Method Room Air 01/30/23 16:22 01/30/23 01/30/23 01/30/23 06:59 14:59 22:59 Intake Total 1050 / 1050 Balance 1050 / 1050 Weight last 48 hrs Weight 140 lb Physical Exam Narrative: General: AOx3, visible discomfort psych: appropriate mood and affect. good judgment and insight. Head: atraumatic, normocephalic, no mass/lesions Ears: clear external auditory canals. Hearing intact Eyes: conjunctiva clear w/o exudate or hemorrhage. non-icteric, EOM intact, PERRLA. no signs of nystagmus Nose: nasal mucosa pink, septum midline Oropharynx: poor dentition Neck: FROM, no lymphadenopathy, no tracheal deviation, non tender, thyroid gland normal w/o mass. supple Chest: atraumatic, symmetrical CVD: RRR, normal S1 and S2, no M/R/G. 2+ pulse x 4 extremities, no JVD, no carotid bruit. Lungs: clear lung sounds in all [place], no rhonchi, wheezing, rales. Abdomen: generalized ttp, ND, soft, NABS. No hepatosplenomegaly, no mass. umbilicus midline w/o herniation Back: L>R flank pain, percussion positive : not done on todays examination Rectal: not done on todays examination Spine: no visible deformities, FROM, 5/5 strength, lower back ttp Extremities: FROM and 5/5 strength in BUE and BLE. no visible joint abnormalities on active and passive ROM. Neuro: CNII-XII grossly intact. No atrophy, weakness, tremors or clonus.? 2+ DTR, no sensory abnormalities. Skin:? no rash, vesicles, lesions. Data 01/30/23 15:41 01/30/23 15:41 Micro: Microbiology 01/30/23 15:45 Blood Culture - Preliminary Blood SPECIMEN COLLECTED 01/30/23 15:41 Blood Culture - Preliminary Blood SPECIMEN COLLECTED A&P Assessment and plan (1) Sepsis: (2) Pyelonephritis: (3) CAD (coronary artery disease): (4) Diabetes mellitus: (5) Hypertension: Qualifiers: Hypertension type: essential hypertension Qualified Code(s): I10 - Essential (primary) hypertension (6) Heart failure with preserved ejection fraction: (7) Anemia: Plan Pyelonephritis Sepsis -Rocephin 2g in ED -Start Vanc and cefepime -pending Blood Cx x 2, Ucx Dehydration -LR 125cc/hr. re-eval in AM ZAK on CKD Hypokalemia -Kcl 50meq in ED, will run LR fluids -will give IV K x 1 in 4hrs Anemia Tropenemia -trend troponins -likely 2/2 to ZAK as EKG w/o changes, Asx DM2 -LDSSI, accuchecks -pt states she was told she was borderline diabetic by PCP -A1c HTN HFpEF -ECHO 03/11 showed EF 60% with G1 diastolic dysfunction. CAD with sents -RCA and LAD stents CT abd/pelvis w/o contrast: 1. ? No acute findings within the abdomen or pelvis. 2. ? 5.5 x 3.0 cm right ovarian cyst developed from previous exam. In view of patient's age would recommend follow-up nonemergent pelvic ultrasound forfurther evaluation. 3. ? Interval development of bilateral perinephric fluid/fat stranding. likely secondary to chronic kidney disease CXR: no acute findings Plan: admit to med surg In ED: rocephin 2g IV x 1, 1L NS, KCL 50meq Troponin elevated w/o EKG changes or CP. will trend. likely 2/2 ZAK LR 125cc/hr, monitor volume status. will help with hypokalemia Rocephin x 1, will start broad spec Vanc and cefepime Pending blood Cx and Urine Cx KCL 40 IV x 1 in 4hrs, re-eval in AM phenergan PRN for nausea AM labs, EKG in AM, A1c, iron panel CODE: FULL DVT prophylaxis: Lovenox PUD prophylaxis: protonix Attestations Medical Necessity Statement*: will require 2 overnight stays Coding Level of Care Code 14316 Diagnoses Sepsis A41.9 Pyelonephritis N12 CAD (coronary artery disease) I25.10 Diabetes mellitus E11.9 Hypertension I10 Hypertension type: essential hypertension Heart failure with preserved ejection fraction I50.30 Anemia D64.9
[2023-01-30 18:16] LABS: Troponin 5 2HR Delta -11.9 ABS# (0-10)
[2023-01-30 18:17] LABS: Troponin 5 2HR 122.1 ng/L (0-10)
--- NOTE | 2023-01-30 18:30 | ECG_ITS ---
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 Measurements Intervals [place] Rate: 89 P: 45 VT: 139 QRS: 54 QRSD: 75 T: 32 QT: 400 QTc: 489 Interpretive Statements SINUS RHYTHM MINIMAL ST DEPRESSION [0.025+ mV ST DEPRESSION] Compared to ECG 01/30/2023 15:51:52 ST (T wave) deviation now present Sinus arrhythmia no longer present T-wave abnormality no longer present Electronically Signed On 01-31-2023 11:10:50 CDT by Julieta Adhikari M.D. [id number]
[2023-01-30 19:16] LABS: Lactic Sepsis W/Reflex 1.7 mmol/L (0.5-2.2)
[2023-01-30 19:24] LABS: Procalcitonin 50.43 ng/mL (0-0.5)
--- NOTE | 2023-01-30 19:55 | ECG_ITS ---
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 Measurements Intervals [place] Rate: 85 P: 20 NE: 141 QRS: 45 QRSD: 75 T: 14 QT: 395 QTc: 472 Interpretive Statements SINUS RHYTHM MINIMAL ST DEPRESSION [0.025+ mV ST DEPRESSION] Compared to ECG 01/30/2023 18:30:43 No significant changes Electronically Signed On 01-31-2023 11:08:34 CDT by Julieta Adhikari M.D. [id number]
[2023-01-30 20:29] LABS: Glucose Point of Care 121 mg/dL (70-110)
[2023-01-30] MEDS: lactated ringers 1,000 ML 125 ML IV (20:39)
[2023-01-30] MEDS: cefepime 1,000 MG in sodium chloride 0.9% (plus) 50 ML 100 MG IV (20:40)
[2023-01-30] MEDS: pantoprazole 40 mg SDV IVP (20:40)
[2023-01-30] MEDS: enoxaparin 40 mg/0.4 mL Syringe SUBCUT (20:40)
[2023-01-30] MEDS: morphine 4 mg/mL SDV 1 mL 2 MG IVP (20:49)
[2023-01-30] MEDS: promethazine 25 mg/mL SDV 1 mL IM (20:49)
--- NOTE | 2023-01-30 21:47 | ECG_ITS ---
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 Measurements Intervals [place] Rate: 96 P: 29 IN: 143 QRS: 56 QRSD: 83 T: 9 QT: 367 QTc: 465 Interpretive Statements SINUS RHYTHM NONSPECIFIC ST & T-WAVE ABNORMALITY Compared to ECG 01/30/2023 19:55:41 T-wave abnormality now present ST (T wave) deviation no longer present Electronically Signed On 01-31-2023 11:10:40 CDT by Julieta Adhikari M.D. [id number]
[2023-01-30 22:06] LABS: Troponin 5 6HR Delta -6.8 ng/L (0-12)
[2023-01-30 22:13] LABS: Troponin 5 6HR 127.2 ng/L (0-10)
[2023-01-30] MEDS: vancomycin 750 MG in sodium chloride 0.9% 250 ML 250 MG IV (22:39)
[2023-01-31] VITALS (7 sets, daily range): BP systolic 136–155; BP diastolic 72–81; PULSE 72–98; RESP 16–18; TEMP 36.7–37.7; O2SAT 94–98; BMI 31.2
[2023-01-31] MEDS: potassium chloride premix 100 ML 25 MEQ IV (00:29)
[2023-01-31 01:10] LABS: Basophils # 0.1 10^3/uL (0.0-0.1); Basophils % 0.4 %; Eosinophils % 0.1 %; Hematocrit 28.3 % (37.0-47.0); Hemoglobin 8.7 g/dL (11.5-15.3); Lymphocytes # 0.8 10^3/uL (0.8-4.8); Mean Corpuscular HGB Conc 30.7 g/dL (30.0-36.0); Mean Corpuscular Hemoglobin 23.5 pg (28.0-34.0); Mean Corpuscular Volume 76.3 fl (81-99); Monocytes # 0.7 10^3/uL (0.2-0.9); Monocytes % 4.9 %; Neutrophils # 12.02 10^3/uL (1.8-7.7); Neutrophils % 87.6 %; Nucleated Red Blood Cells % 0 %; Platelet Count 202 10^3/cmm (130-400); Red Blood Count 3.71 10^6/uL (4.1-5.3); Red Cell Distribution Width 17.1 % (12.1-15.1); White Blood Count 13.7 10^3/uL (4.0-10.0)
[2023-01-31 01:28] LABS: Estmated Average Glucose 120; Hemoglobin A1C 5.8 % (4.0-6.0)
[2023-01-31 01:34] LABS: Ferritin 163 ng/mL (15-150); Iron 10 ug/dL (37-145); Percent Saturation 5.3 % (20-50); Total Iron Binding Capacity 186 mcg/dl; Unsaturated Iron Binding 176 ug/dL (112-347)
[2023-01-31 01:35] LABS: Troponin 5 6HR 135.6 ng/L (0-10); Troponin 5 6HR Delta 1.6 ng/L (0-12)
[2023-01-31 01:41] LABS: Alanine Aminotransferase 15 U/L (0-33); Anion Gap 16.5 (5-19); Aspartate Amino Transferase 23 U/L (0-32); Blood Urea Nitrogen 18 mg/dL (8-23); Carbon Dioxide 22 mmol/L (22-29); Chloride 99 mmol/L (98-107); Creatinine Clr Calc Pharmacy 31.9867; Globulin 3.6 g/dL (1.3-4.6); Glucose 105 mg/dL (65-115); Potassium 3.5 mmol/L (3.5-5.1); Thyroid Stimulating Hormone 0.79 uIU/mL (0.27-4.20); Total Bilirubin 0.4 mg/dL (0.15-1.2)
[2023-01-31 02:02] LABS: Calcium 8.2 mg/dL (8.5-10.5); Osmolality Calculated 280 mOsm/kg (285-295); Phosphorus 2.2 mg/dL (2.5-4.5); Sodium 134 mmol/L (136-145)
[2023-01-31 02:03] LABS: Albumin Level 2.7 g/dL (3.5-5.2); Alkaline Phosphatase 121 U/L (35-105); NT Pro B Type Natriuretic Pept 5063 pg/mL (0-450); Total Protein 6.3 g/dL (6.6-8.7)
[2023-01-31] MEDS: lactated ringers 1,000 ML 125 ML IV ×2 (03:42→11:31)
--- NOTE | 2023-01-31 06:00 | ECG_ITS ---
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 Measurements Intervals [place] Rate: 84 P: 35 AK: 147 QRS: 54 QRSD: 80 T: 27 QT: 379 QTc: 449 Interpretive Statements SINUS RHYTHM MINIMAL ST DEPRESSION [0.025+ mV ST DEPRESSION] Compared to ECG 01/30/2023 22:00:24 ST (T wave) deviation now present T-wave abnormality no longer present Electronically Signed On 01-31-2023 11:09:59 CDT by Julieta Adhikari M.D. [id number]
[2023-01-31 06:36] LABS: Glucose Point of Care 125 mg/dL (70-110)
[2023-01-31] MEDS: aspirin 81 mg EC Tablet PO (07:55)
[2023-01-31] MEDS: cefepime 1,000 MG in sodium chloride 0.9% (plus) 50 ML 100 MG IV ×2 (07:55→20:00)
[2023-01-31] MEDS: clopidogrel 75 mg Tablet PO (07:56)
[2023-01-31 09:36] LABS: Acinetobacter baumannii Not Detected (NOT DETECT); Bacteroides fragilis Not Detected (NOT DETECT); CTX-M Not Detected (NOT DETECT); Citrobacter Not Detected (NOT DETECT); Cronobacter sakazakii Not Detected (NOT DETECT); Enterobacter cloacae complex Not Detected (NOT DETECT); Enterobacter non cloacae Not Detected (NOT DETECT); Fusobacterium necrophorum Not Detected (NOT DETECT); Fusobacterium nucleatum Not Detected (NOT DETECT); Haemophilus influenzae Not Detected (NOT DETECT); IMP Resistance Gene Not Detected (NOT DETECT); KPC Resistance Gene Not Detected (NOT DETECT); Klebsiella pneumoniae group Not Detected (NOT DETECT); Morganella morganii Not Detected (NOT DETECT); NDM Resistance Gene Not Detected (NOT DETECT); Neisseria meningitidis Not Detected (NOT DETECT); OXA Resistance Gene Not Detected (NOT DETECT); Pan Candida Not Detected (NOT DETECT); Pan Gram-Positive Not Detected (NOT DETECT); Proteus mirabilis Not Detected (NOT DETECT); Pseudomonas aeruginosa Not Detected (NOT DETECT); Salmonella Not Detected (NOT DETECT); Serratia Not Detected (NOT DETECT); Serratia marcescens Not Detected (NOT DETECT); Stenotrophomonas maltophilia Not Detected (NOT DETECT); VIM Resistance Gene Not Detected (NOT DETECT)
[2023-01-31] MEDS: morphine 4 mg/mL SDV 1 mL 2 MG IVP (09:44)
[2023-01-31] MEDS: promethazine 25 mg/mL SDV 1 mL IM (09:45)
[2023-01-31] MEDS: nitroglycerin 0.4 mg sublingual Tablet SUBLINGUAL (09:45)
[2023-01-31] MEDS: lidocaine 2% viscous 15 ML, aluminum-mag hydrox-simethicon 30 ML, sucralfate oral liq 1 GM PO (11:30)
--- NOTE | 2023-01-31 12:16 | USCV_ITS ---
Patricia Benito Age: 77 Gender: F : 1945 Exam Date: 01/31/2023 15:27 Ordering Phys: Keyanna Quinn MD Technologist: Enio Cunha Exam Location: [facility] Indication: nstemi BP: 135 / 74 HR: 86 Rhythm: Sinus Technical Quality: Suboptimal MEASUREMENTS (Male / Female) Normal Values 2D ECHO LV Diastolic Diameter PLAX 4.0 cm 4.2 - 5.9 / 3.9 - 5.3 cm LV Systolic Diameter PLAX 2.4 cm IVS Diastolic Thickness 0.9 cm 0.6 - 1.0 / 0.6 - 0.9 cm IVS Systolic Thickness 1.2 cm LVPW Diastolic Thickness 1.0 cm 0.6 - 1.0 / 0.6 - 0.9 cm LVPW Systolic Thickness 1.5 cm LVOT Diameter 2.0 cm LV Ejection Fraction 2D Teich 71.0 % LV Ejection Fraction MOD 2C 50.2 % LV Ejection Fraction 2C AL 51.2 % LA Diameter 4.1 cm Aorta at Sinotubular Diameter 2.4 cm M-MODE Aortic Annulus Diameter 2.9 cm LA Ao Ratio MM 1.6 MV E Point Septal Separation 0.6 cm DOPPLER AV Peak Velocity 184.0 cm/s LVOT Peak Velocity 134.0 cm/s AV Area Cont Eq vti 2.7 cm squared AV Area Cont Eq pk 2.3 cm squared MV Area PHT 3.9 cm squared Mitral E to A Ratio 1.0 MV E' Velocity 51.0 cm/s Mitral E to MV E' Ratio 12.9 Mitral E to LV E' Lateral Ratio 15.9 Mitral E to LV E' Septal Ratio 11.0 TR Peak Velocity 183.0 cm/s TR Peak Gradient 13.4 mmHg Right Atrial Pressure 3.0 mmHg Pulmonary Artery Systolic Pressu 16.4 mmHg RV Acceleration Time 0.1 s FINDINGS Left Ventricle Normal left ventricular size, systolic function and wall thickness, with no regional wall motion abnormalities. Grade I/IV diastolic dysfunction (abnormal relaxation filling pattern), normal to mildly elevated filling pressures. Left ventricular ejection fraction is estimated at 60 %. Right Ventricle Normal right ventricular size and systolic function. Normal right ventricular systolic pressure. Right Atrium The right atrium is normal in size. Left Atrium The left atrium is normal in size. Mitral Valve Structurally normal mitral valve. Trace mitral valve regurgitation. Aortic Valve Structurally normal aortic valve without significant sclerosis or stenosis. There is no aortic regurgitation. Tricuspid Valve Structurally normal tricuspid valve. Trace tricuspid valve regurgitation. Pulmonic Valve Pulmonic valve not well visualized. Pericardium Normal pericardium without effusion. Aorta Normal ascending aorta dimension. IVC The inferior vena cava appears normal. CONCLUSIONS Normal left ventricular size, systolic function and wall thickness, with no regional wall motion abnormalities. Grade I/IV diastolic dysfunction (abnormal relaxation filling pattern), normal to mildly elevated filling pressures. Left ventricular ejection fraction is estimated at 60 %. Structurally normal mitral valve. Trace mitral valve regurgitation. No change from the previous study dated 02/27/2021. Dr. Lane Franco MD (Electronically Signed) Final Date: 01 February 2023 08:13 S
--- NOTE | 2023-01-31 16:45 | PM.PN ---
Subjective Subjective: Patient continues to feel poorly today. She states she is very weak. No longer vomiting but does not have any appetite. Tmax 99.8 Fahrenheit. White count appears to be improving today. Urine and blood culture reported positive for gram-negative rods identified as E. coli, pending susceptibility testing. Patient denies any dysuria or urinary symptoms per se prior to arrival. states patient has been suffering from diarrhea over the past few days. States that they are down water supply is suspected to be contaminated. She submitted a specimen for stool studies at [facility] recently, we have requested results. Patient also recently underwent an EGD colonoscopy, results of which have been requested from Dr. Vides's office. Medications: Reviewed: Yes Vitals/I&O/Wt Last Vital Signs Temp 99.8 F H 01/31/23 15:44 Pulse 98 01/31/23 15:44 Resp 16 01/31/23 15:44 BP 155/74 01/31/23 15:44 Pulse Ox 96 01/31/23 15:44 O2 Del Method Room Air 01/31/23 15:44 01/31/23 01/31/23 01/31/23 06:59 14:59 22:59 Intake Total 1711.25 / 3051.25 1027.083 / 1027.083 Balance 1711.25 / 3051.25 1027.083 / 1027.083 Weight last 48 hrs Weight 70.216 kg Weight 63.503 kg Physical Exam Narrative: General: No acute distress, AO x3 HEENT: PERRLA, pupils bilaterally equal and reactive, pallors not present Chest: Normal vesicular breath sounds, no added sounds, equal good air entry bilaterally CVS: S1-S2 regular, no murmurs, no tachycardia, no gallops, no rubs Abdomen: Soft, nontender, no organomegaly, bowel sounds present Neuro: No focal deficits, no facial deformity, AO x3, power 5/5 in all limbs Data 01/31/23 00:58 01/31/23 00:58 Micro: Microbiology 01/30/23 15:41 Blood Culture - Preliminary Blood Escherichia coli 01/30/23 15:45 Blood Culture - Preliminary Blood Escherichia coli 01/30/23 16:05 Urine Culture - Preliminary Urine,Clean Catch Gram Negative Rods A&P Assessment and plan (1) Sepsis: (2) Pyelonephritis: (3) CAD (coronary artery disease): (4) Diabetes mellitus: (5) Hypertension: Qualifiers: Hypertension type: essential hypertension Qualified Code(s): I10 - Essential (primary) hypertension (6) Heart failure with preserved ejection fraction: (7) Anemia: (8) Diarrhea: (9) Elevated troponin: Plan Sepsis is currently improving. Leukocytosis is improving, Tmax 99.8 Fahrenheit. Hemodynamically stable. Blood and urine cultures reported with E. coli, pending susceptibility testing Continue cefepime empirically while awaiting susceptibility data. Discontinue vancomycin Repeat blood cultures in a.m. to a certain clearance. CT of the abdomen and pelvis without any urinary obstruction. Bilateral perinephric stranding thought to be related to possible CKD versus possible pyelonephritis. Hydration status is currently improving. Patient carries a past medical history of CHF for which she takes Lasix every day. While we are not going to be resuming Lasix today, will discontinue IV fluids to avoid making patient hypervolemic. Encourage p.o. intake. Patient does not have an appetite though has stopped vomiting today. As needed Zofran and Reglan for Nast nausea. ZAK on CKD, likely related to dehydration, monitor for serial improvement. Possible source of her current infection appears to be urinary, however patient denies any urinary complaints. SHe does complain of nausea vomiting and diarrhea leading up to her hospitalization. Has been states that there city has currently shifted to the local city supply which is suspected to be contaminated with several people having diarrheal illness recently. Patient recently submitted a stool specimen at [facility], will obtain results. Noted also to be anemic, hemoglobin drifting down to 8.7. Patient recently had EGD with Dr. Vides, will request these records. Elevated troponins noted, baseline at 134, trending down at 2 one 6-hour with negative delta's. Concern for possible demand supply mismatch/type II PR versus NSTEMI. No acute ST-T wave changes on EKG. Check echocardiogram. Holding off on starting anticoagulation at this time due to down drifting hemoglobin. If echocardiogram shows change management specialist previous echo in 2020 or new regional wall motion abnormalities, will likely need to be started on anticoagulation Continue Plavix 75 mg p.o. daily Holding Lasix currently. Patient is currently euvolemic from being dehydrated yesterday. HTN, resume home dose of nitrates. CODE: FULL DVT prophylaxis: Lovenox PUD prophylaxis: protonix Attestations Medical Necessity Statement*: Continued need of IV antibiotics, awaiting susceptibility data from urine and blood cultures, pending stool studies and review of recent EGD, echocardiogram for possible NSTEMI versus type II PR Coding Level of Care Code Acute Code for Chg Fwd High MDM includes number and complexity of problems actively addressed during encounter, amount and/or complexity of data reviewed/ordered and described risk of complication, morbidity or mortality of management as documented Diagnoses Sepsis A41.9 Pyelonephritis N12 CAD (coronary artery disease) I25.10 Diabetes mellitus E11.9 Hypertension I10 Hypertension type: essential hypertension Heart failure with preserved ejection fraction I50.30 Anemia D64.9 Diarrhea R19.7 Elevated troponin R77.8
[2023-01-31] MEDS: metoclopramide 5 mg/mL SDV 2 mL IVP (17:56)
[2023-01-31] MEDS: pantoprazole 40 mg SDV IVP (17:57)
[2023-01-31] MEDS: enoxaparin 40 mg/0.4 mL Syringe SUBCUT (17:57)
[2023-01-31] MEDS: atorvastatin 40 mg Tablet 20 MG PO (21:07)
[2023-01-31] MEDS: ondansetron 2 mg/ML SDV 2 mL 4 MG IVP (23:55)
[2023-02-01] VITALS (8 sets, daily range): BP systolic 116–168; BP diastolic 60–76; PULSE 68–83; RESP 16–18; TEMP 36.2–37.1; O2SAT 95–98
[2023-02-01 04:07] LABS: Basophils % 0.4 %; Eosinophils # 0.1 10^3/uL (0.0-0.8); Eosinophils % 0.5 %; Hematocrit 27.1 % (37.0-47.0); Hemoglobin 8.2 g/dL (11.5-15.3); Lymphocytes # 0.8 10^3/uL (0.8-4.8); Lymphocytes % 7.1 %; Mean Corpuscular HGB Conc 30.3 g/dL (30.0-36.0); Mean Corpuscular Hemoglobin 23.1 pg (28.0-34.0); Mean Corpuscular Volume 76.3 fl (81-99); Mean Platelet Volume 9.1 fL (7.4-10.4); Monocytes # 0.8 10^3/uL (0.2-0.9); Monocytes % 7.5 %; Neutrophils # 9.33 10^3/uL (1.8-7.7); Neutrophils % 83.9 %; Nucleated Red Blood Cells % 0 %; Platelet Count 208 10^3/cmm (130-400); Red Blood Count 3.55 10^6/uL (4.1-5.3); Red Cell Distribution Width 16.9 % (12.1-15.1); White Blood Count 11.1 10^3/uL (4.0-10.0)
[2023-02-01 04:28] LABS: Alanine Aminotransferase 15 U/L (0-33); Albumin Level 2.5 g/dL (3.5-5.2); Alkaline Phosphatase 132 U/L (35-105); Anion Gap 17.4 (5-19); Aspartate Amino Transferase 24 U/L (0-32); Blood Urea Nitrogen 16 mg/dL (8-23); Calcium 8.6 mg/dL (8.5-10.5); Carbon Dioxide 19 mmol/L (22-29); Chloride 100 mmol/L (98-107); Globulin 3.7 g/dL (1.3-4.6); Glucose 80 mg/dL (65-115); Osmolality Calculated 276 mOsm/kg (285-295); Potassium 3.4 mmol/L (3.5-5.1); Sodium 133 mmol/L (136-145); Thyroid Stimulating Hormone 0.35 uIU/mL (0.27-4.20); Total Bilirubin 0.4 mg/dL (0.15-1.2); Total Protein 6.2 g/dL (6.6-8.7)
[2023-02-01] MEDS: ondansetron 2 mg/ML SDV 2 mL 4 MG IVP (09:40)
[2023-02-01] MEDS: cefepime 1,000 MG in sodium chloride 0.9% (plus) 50 ML 100 MG IV (10:51)
[2023-02-01] MEDS: aspirin 81 mg EC Tablet PO (10:52)
[2023-02-01] MEDS: isosorbide mononitrate ER 30 mg Tablet PO (10:53)
[2023-02-01] MEDS: clopidogrel 75 mg Tablet PO (10:53)
[2023-02-01] MEDS: sucralfate 1 gm Tablet PO (10:53)
[2023-02-01] MEDS: metoprolol tartrate 25 mg Tablet 12.5 MG PO (10:54)
--- NOTE | 2023-02-01 13:27 | ECG_ITS ---
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 Interpretive Statements NAME OF STUDY: LEXISCAN SESTAMIBI STRESS TEST INDICATION: [Elevated Troponin, ] Procedure: At the baseline, the blood pressure was 139/69 mmHg with a heart rate of 92 bpm. The electrocardiogram showed normal sinus rhythm, normal axis with normal ST and T's. The Lexiscan was infused over a period of 20 seconds. A total of 0.4 mg of Lexiscan was infused. The stress phase was continued for a total of 5 minutes. Heart rate was at the end of stress phase was 109 bpm and a blood pressure of 144/70 mmHg. The EKG at the peak infusion revealed normal sinus rhythm with no significant ST-T wave changes. Sestamibi was injected 20 seconds after the Lexiscan infusion. Blood pressure at the end of recovery phase was 142/66 mmHg with a heart rate of 94 bpm. Conclusion 1. Normal EKG response to Lexiscan infusion 2. No Lexiscan induced chest pain or cardiac arrhythmia. 3. Normal blood pressure and heart rate response. 4. Sestamibi/sestamibi perfusion scan pending; see separate report. Electronically Signed On 02-11-2023 15:26:58 CDT by Pk Olivier M.D. [id number]
[2023-02-01] MEDS: HYDROcodone-acetaminophen 5-325 mg Tablet 1 TAB PO (17:09)
--- NOTE | 2023-02-01 17:29 | P.PN_ITS ---
Subjective Subjective: Afebrile, hemodynamically stable, no acute interim events. Continues to complain of poor appetite. No vomiting. No diarrhea. Afebrile last 24 hours. Medications: Reviewed: Yes Vitals/I&O/Wt Last Vital Signs Temp 98.4 F 02/01/23 16:00 Pulse 75 02/01/23 16:00 Resp 16 02/01/23 16:00 BP 137/65 02/01/23 16:00 Pulse Ox 96 02/01/23 16:00 O2 Del Method Room Air 02/01/23 16:00 02/01/23 02/01/23 02/01/23 06:59 14:59 22:59 Intake Total 260 / 260 Output Total 600 / 600 Balance -600 / 1257.500 260 / 260 Weight last 48 hrs Weight 67.132 kg Weight 70.216 kg Physical Exam Narrative: General: No acute distress, AO x3 HEENT: PERRLA, pupils bilaterally equal and reactive, pallors not present Chest: Normal vesicular breath sounds, no added sounds, equal good air entry bilaterally CVS: S1-S2 regular, no murmurs, no tachycardia, no gallops, no rubs Abdomen: Soft, nontender, no organomegaly, bowel sounds present Neuro: No focal deficits, no facial deformity, AO x3, power 5/5 in all limbs Data 02/01/23 03:25 02/01/23 03:25 Micro: Microbiology 01/30/23 16:05 Urine Culture - Final Urine,Clean Catch Escherichia coli 02/01/23 03:25 Blood Culture - Preliminary Blood SPECIMEN COLLECTED 02/01/23 03:29 Blood Culture - Preliminary Blood SPECIMEN COLLECTED A&P Assessment and plan (1) Sepsis: (2) Pyelonephritis: (3) CAD (coronary artery disease): (4) Diabetes mellitus: (5) Hypertension: Qualifiers: Hypertension type: essential hypertension Qualified Code(s): I10 - Essential (primary) hypertension (6) Heart failure with preserved ejection fraction: (7) Anemia: (8) Diarrhea: (9) Elevated troponin: Plan Sepsis is resolved Leukocytosis is improving, Hemodynamically stable. Blood and urine cultures reported with E. coli, dunne-S Discontinue cefepime , change to Ceftriaxone 2g iv q24h CT of the abdomen and pelvis without any urinary obstruction. Bilateral perinephric stranding thought to be related to possible CKD versus possible pyelonephritis. Hydration status is currently improving. Patient carries a past medical history of CHF for which she takes Lasix every day. holding lasix for now Encourage p.o. intake. As needed Zofran and Reglan for Nast nausea. ZAK on CKD, likely related to dehydration, monitor for serial improvement. Noted also to be anemic, hemoglobin drifting down to 8.2. Patient recently had EGD with Dr. Vides,per verabl report from [facility], mild gastritis noted, no active bleeding. Last colono was 6-7 years ago at [facility] Elevated troponins noted, baseline at 134, trending down at 2 one 6-hour with negative delta's. Concern for possible demand supply mismatch/type II [place] versus NSTEMI. No acute ST-T wave changes on EKG. echocardiogram shows Normal left ventricular size, systolic function and wall ?thickness, with no regional wall motion abnormalities. Grade ?I/IV diastolic dysfunction?. LVEF 60% Continue Plavix 75 mg p.o. daily Planned stress test tomorrow HTN, resume home dose of nitrates, BP better controlled . CODE: FULL DVT prophylaxis: Lovenox PUD prophylaxis: protonix Attestations Medical Necessity Statement*: stress test tomorrow, change abx, encourage po intake Coding Level of Care Code Acute Code for Chg Fwd Diagnoses Sepsis A41.9 Pyelonephritis N12 CAD (coronary artery disease) I25.10 Diabetes mellitus E11.9 Hypertension I10 Hypertension type: essential hypertension Heart failure with preserved ejection fraction I50.30 Anemia D64.9 Diarrhea R19.7 Elevated troponin R77.8
[2023-02-01] MEDS: pantoprazole 40 mg SDV IVP (18:09)
[2023-02-01] MEDS: enoxaparin 40 mg/0.4 mL Syringe SUBCUT (18:09)
[2023-02-01] MEDS: atorvastatin 40 mg Tablet 20 MG PO (20:52)
[2023-02-02 03:35] VITALS: BP 130/72; PULSE 78; RESP 17; TEMP 36.9; O2SAT 96
[2023-02-02 05:17] LABS: Basophils # 0.1 10^3/uL (0.0-0.1); Basophils % 0.5 %; Eosinophils # 0.2 10^3/uL (0.0-0.8); Eosinophils % 1.4 %; Hematocrit 26.1 % (37.0-47.0); Lymphocytes # 0.8 10^3/uL (0.8-4.8); Mean Corpuscular HGB Conc 30.7 g/dL (30.0-36.0); Mean Corpuscular Hemoglobin 23.3 pg (28.0-34.0); Mean Corpuscular Volume 76.1 fl (81-99); Mean Platelet Volume 8.9 fL (7.4-10.4); Monocytes % 9.8 %; Neutrophils % 79.3 %; Nucleated Red Blood Cells % 0 %; Platelet Count 235 10^3/cmm (130-400); Red Blood Count 3.43 10^6/uL (4.1-5.3); Red Cell Distribution Width 16.8 % (12.1-15.1); White Blood Count 10.5 10^3/uL (4.0-10.0)
[2023-02-02 05:39] LABS: Alanine Aminotransferase 19 U/L (0-33); Albumin Level 2.4 g/dL (3.5-5.2); Alkaline Phosphatase 124 U/L (35-105); Anion Gap 16.3 (5-19); Aspartate Amino Transferase 33 U/L (0-32); Blood Urea Nitrogen 17 mg/dL (8-23); Calcium 8.4 mg/dL (8.5-10.5); Carbon Dioxide 20 mmol/L (22-29); Chloride 100 mmol/L (98-107); Globulin 3.8 g/dL (1.3-4.6); Glucose 80 mg/dL (65-115); Osmolality Calculated 277 mOsm/kg (285-295); Potassium 3.3 mmol/L (3.5-5.1); Sodium 133 mmol/L (136-145); Total Bilirubin 0.3 mg/dL (0.15-1.2); Total Protein 6.2 g/dL (6.6-8.7)
[2023-02-02] MEDS: regadenoson 0.4 Mg/5 ml Syringe IVP (07:33)
[2023-02-02 07:48] VITALS: BP 142/66; PULSE 93
[2023-02-02] MEDS: clopidogrel 75 mg Tablet PO (08:43)
[2023-02-02] MEDS: aspirin 81 mg EC Tablet PO (08:43)
[2023-02-02] MEDS: isosorbide mononitrate ER 30 mg Tablet PO (08:43)
[2023-02-02] MEDS: sucralfate 1 gm Tablet PO (08:43)
[2023-02-02] MEDS: sertraline 100 mg Tablet PO (08:44)
[2023-02-02] MEDS: gabapentin 300 mg Capsule PO (08:44)
[2023-02-02] MEDS: metoprolol tartrate 25 mg Tablet 12.5 MG PO (08:57)
[2023-02-02] MEDS: cefTRIAXone 1,000 MG in sodium chloride 0.9% (plus) 50 ML 100 MG IV (10:45)
[2023-02-02 11:24] VITALS: BP 123/69; PULSE 73; RESP 17; TEMP 36.8; O2SAT 97
--- NOTE | 2023-02-02 13:27 | NMCV_ITS ---
NM luis miguel perf SPECT r/s* [id number] Patricia Benito Age: 77 Gender: F : 1945 Exam Date: 02/02/2023 13:27 Ordering Phys: Keyanna Quinn MD Technologist: ALEXIS Ly Exam Location: [facility] Indications: CHEST PAIN STRESS TEST Please see separate stress test report in [facility] for full findings IMAGE PROTOCOL Rest/Stress 1 Lexiscan Day Radiopharmaceutical Dose (mCi) Administration Site Administered by Rest: Tc-99m 10.7 IV ALEXIS Rushing Sestamibi Stress:Tc-99m 32.7 IV ALEXIS Rushing Sestamibi Rest: 02-Feb-2023 60 Discovery 630 Stress: 02-Feb-2023 30 Discovery 630 0.4mg Lexiscan. Supine position only as patient was unable to lay prone. SPECT RESULTS Technical Quality: Excellent Raw Data Analysis: Normal Image Corrections: No attenuation or motion correction applied Summed Stress Score: 11 Summed Rest Score: 7 Summed Difference Score: 6 PERFUSION FINDINGS There is a large in size, mostly reversible perfusion defect noted in inferolateral wall. This is consistent with small area of prior infarct with large area of taylor-infarct ischemia in left circumflex artery territory. Medium sized area of partially reversible perfusion defect is seen in inferior wall. This is consistent with medium sized prior infarct with taylor-infarct ischemia in RCA territory. FUNCTIONAL RESULTS (calculated via Gated SPECT) Stress Image LV EF (%): 90 Stress EDV (mL):52 TID: 0.95 Stress ESV (mL):5 FUNCTIONAL FINDINGS: There is normal left ventricular systolic function. IMPRESSIONS 1. Abnormal myocardial perfusion imaging with small area of prior infarct with large taylor-infarct ischemia seen in left circumflex artery territory. 2. Medium sized area of prior infarct with taylor-infarct ischemia in RCA territory. 3. LV systolic function is normal. Pk Olivier MD (Electronically Signed) Final Date: 02 February 2023 19:45 S
[2023-02-02 15:38] VITALS: BP 166/88; PULSE 81; RESP 16; TEMP 36.6; O2SAT 97
[2023-02-02] MEDS: acetaminophen 325 mg Tablet 650 MG PO (15:46)
--- NOTE | 2023-02-02 16:37 | P.PN_ITS ---
Subjective Subjective: Patient underwent stress test earlier today. Results are currently awaited. Afebrile, hemodynamically stable, no acute complaints. Hb drifting down to 8. Medications: Reviewed: Yes Vitals/I&O/Wt Last Vital Signs Temp 97.9 F 02/02/23 15:38 Pulse 81 02/02/23 15:38 Resp 16 02/02/23 15:38 BP 166/88 02/02/23 15:38 Pulse Ox 97 02/02/23 15:38 O2 Del Method HAG 02/02/23 11:24 02/02/23 02/02/23 02/02/23 06:59 14:59 22:59 Intake Total 0 / 520 480 / 480 50 / 530 Output Total 600 / 600 Balance -600 / -80 480 / 480 50 / 530 Weight last 48 hrs Weight 66.27 kg Weight 67.132 kg Physical Exam Narrative: General: No acute distress, AO x3 HEENT: PERRLA, pupils bilaterally equal and reactive, pallors not present Chest: Normal vesicular breath sounds, no added sounds, equal good air entry bilaterally CVS: S1-S2 regular, no murmurs, no tachycardia, no gallops, no rubs Abdomen: Soft, nontender, no organomegaly, bowel sounds present Neuro: No focal deficits, no facial deformity, AO x3, power 5/5 in all limbs Data 02/02/23 05:02 02/02/23 05:02 Micro: Microbiology 01/30/23 15:41 Blood Culture - Final Blood Escherichia coli E coli M.I.C. RX --------- ------ * Amikacin <=16 S * Amoxicillin/Clavulanate <=8/4 S * Ampicillin <=8 S * Ampicillin/Sulbactam <=8/4 S * Aztreonam <=4 S * Cefepime <=8 S * Ceftriaxone <=1 S * Cefuroxime <=4 S * Ciprofloxacin <=1 S * Gentamicin <=2 S * Imipenem <=1 S * Levofloxacin <=2 S * Nitrofurantoin <=32 S * Tetracycline <=4 S * Trimethoprim/Sulfamethoxazole <=2/38 S * Piperacillin/Tazobactam <=16 S 01/30/23 15:45 Blood Culture - Final Blood Escherichia coli 02/01/23 03:25 Blood Culture - Preliminary Blood NEGATIVE TO DATE 02/01/23 03:29 Blood Culture - Preliminary Blood NEGATIVE TO DATE 01/30/23 16:05 Urine Culture - Final Urine,Clean Catch Escherichia coli A&P Assessment and plan (1) Sepsis: (2) Pyelonephritis: (3) CAD (coronary artery disease): (4) Diabetes mellitus: (5) Hypertension: Qualifiers: Hypertension type: essential hypertension Qualified Code(s): I10 - Essential (primary) hypertension (6) Heart failure with preserved ejection fraction: (7) Anemia: (8) Diarrhea: (9) Elevated troponin: Plan Sepsis is resolved Leukocytosis is improving, Hemodynamically stable. Blood and urine cultures reported with E. coli, dunne-S continue Ceftriaxone 2g iv q24h , anticipate discharge on po ciprofloxacin for total [address] of the abdomen and pelvis without any urinary obstruction. Bilateral perinephric stranding thought to be related to possible CKD versus possible pyelonephritis. Hydration status is currently improving. Patient carries a past medical history of CHF for which she takes Lasix every day. holding lasix for now Encourage p.o. intake. Still with nausea, improved over yesterday ZAK on CKD, likely related to dehydration, monitor for serial improvement. Noted also to be anemic, hemoglobin drifting down to 8.0. Patient recently had EGD with Dr. Vides,per verabl report from [facility], mild gastritis noted, no active bleeding. Last colono was 6-7 years ago at [facility]. Pending stool studies d/c plavix Elevated troponins noted, baseline at 134, trending down at 2 one 6-hour with n egative delta's. Concern for possible demand supply mismatch/type II [place] versus NSTEMI. No acute ST-T wave changes on EKG. echocardiogram shows Normal left ventricular size, systolic function and wall ?thickness, with no regional wall motion abnormalities. Grade ?I/IV diastolic dysfunction?. LVEF 60% Continue Plavix 75 mg p.o. daily stress test taken today, results pending HTN, SBP 140-160, increase imdur to 60mg daily from 30 mg daily CODE: FULL DVT prophylaxis: Lovenox PUD prophylaxis: protonix Attestations Medical Necessity Statement*: pending stress test results , iv abx Coding Level of Care Code Acute Code for Chg Fwd Diagnoses Sepsis A41.9 Pyelonephritis N12 CAD (coronary artery disease) I25.10 Diabetes mellitus E11.9 Hypertension I10 Hypertension type: essential hypertension Heart failure with preserved ejection fraction I50.30 Anemia D64.9 Diarrhea R19.7 Elevated troponin R77.8
[2023-02-02] MEDS: pantoprazole 40 mg SDV IVP (18:14)
[2023-02-02] MEDS: hyDRALAzine 20 mg/mL INJ 1 mL 5 MG IVP (18:14)
[2023-02-02 19:46] VITALS: BP 157/77; PULSE 73; RESP 18; TEMP 36.7; O2SAT 96
[2023-02-02] MEDS: HYDROcodone-acetaminophen 5-325 mg Tablet 1 TAB PO (19:50)
[2023-02-02] MEDS: atorvastatin 40 mg Tablet 20 MG PO (19:51)
[2023-02-03] VITALS (7 sets, daily range): BP systolic 131–165; BP diastolic 64–84; PULSE 70–87; RESP 14–18; TEMP 36.4–37.2; O2SAT 94–97
[2023-02-03] MEDS: acetaminophen 325 mg Tablet 650 MG PO (03:47)
[2023-02-03 04:58] LABS: Basophils # 0.1 10^3/uL (0.0-0.1); Basophils % 0.8 %; Eosinophils # 0.2 10^3/uL (0.0-0.8); Eosinophils % 2.1 %; Hematocrit 27.2 % (37.0-47.0); Hemoglobin 8.2 g/dL (11.5-15.3); Lymphocytes # 0.8 10^3/uL (0.8-4.8); Lymphocytes % 9.3 %; Mean Corpuscular HGB Conc 30.1 g/dL (30.0-36.0); Mean Corpuscular Hemoglobin 22.9 pg (28.0-34.0); Monocytes # 0.8 10^3/uL (0.2-0.9); Monocytes % 8.5 %; Neutrophils # 7.01 10^3/uL (1.8-7.7); Neutrophils % 77.7 %; Nucleated Red Blood Cells % 0 %; Platelet Count 294 10^3/cmm (130-400); Red Blood Count 3.58 10^6/uL (4.1-5.3); Red Cell Distribution Width 16.3 % (12.1-15.1)
[2023-02-03 05:20] LABS: Alanine Aminotransferase 19 U/L (0-33); Albumin Level 2.4 g/dL (3.5-5.2); Alkaline Phosphatase 133 U/L (35-105); Aspartate Amino Transferase 30 U/L (0-32); Blood Urea Nitrogen 15 mg/dL (8-23); Calcium 8.4 mg/dL (8.5-10.5); Carbon Dioxide 20 mmol/L (22-29); Chloride 102 mmol/L (98-107); Creatinine Clr Calc Pharmacy 48.0828; Globulin 3.9 g/dL (1.3-4.6); Glucose 95 mg/dL (65-115); Osmolality Calculated 277 mOsm/kg (285-295); Sodium 133 mmol/L (136-145); Total Bilirubin 0.2 mg/dL (0.15-1.2); Total Protein 6.3 g/dL (6.6-8.7)
[2023-02-03 05:24] LABS: Anion Gap 14.3 (5-19); Potassium 3.3 mmol/L (3.5-5.1)
[2023-02-03] MEDS: gabapentin 300 mg Capsule PO (11:04)
[2023-02-03] MEDS: aspirin 81 mg EC Tablet PO (11:04)
[2023-02-03] MEDS: isosorbide mononitrate ER 60 mg Tablet PO (11:05)
[2023-02-03] MEDS: metoprolol tartrate 25 mg Tablet 12.5 MG PO (11:05)
[2023-02-03] MEDS: cefTRIAXone 1,000 MG in sodium chloride 0.9% (plus) 50 ML 50 MG IV (11:05)
--- NOTE | 2023-02-03 15:55 | PM.CONSULT ---
Providers/Reason For Consult Consulting Physician/Specialty*: Pk Olivier MD/ Cardiology Reason for Consult*: Chest pain/abnormal stress test Requesting Physician: Dr Quinn Attending Physician: Keyanna Quinn MD Primary Care Provider: Annel Gill History of Present Illness History of Present Illness Patricia Benito is a 77 year old female with past medical history of coronary artery disease, diabetes, hypertension, and hyperlipidemia who presented with abdominal pain. She was found to have pyelonephritis and was treated for it. She also has on and off chest pain symptoms. She had a stress test that is abnormal. EKG shows minimal ST depressions. Echo shows normal LV systolic function. Troponin has been elevated and baseline was 134. Patient also has anemia and hemoglobin has dropped from baseline of 9 during this admission to 8.2. She had EGD recently with reported no active source of bleeding however gastritis was seen. Review of Systems General: Reports: 10 or more systems reviewed and unremarkable except in HPI and below Const: Reports: fever(s), chills, body aches, fatigue and night sweats Eyes: Denies: change in vision or blurry vision ENMT: Denies: throat pain, odynophagia or hoarseness Card: Reports: chest pain; Denies: palpitations or dyspnea on exertion Resp: Denies: dyspnea, productive cough, non-productive cough or wheezing GI: Reports: abdominal pain; Denies: coffee ground emesis, heartburn, diarrhea, constipation, hematochezia or melena : Reports: flank pain, dysuria, urinary frequency and urinary urgency; Denies: difficulty voiding Musc: Denies: neck pain, back pain or joint pain Skin/Breast: Denies: rash or new lesions Neuro: Denies: headache(s), numbness in extremities or weakness in extremities Medications/Allergies Home Medications Medication Instructions Recorded Confirmed Last Taken Type Vitamin B-12 1 tab PO DAILY 02/08/20 01/31/23 02/07/20 History gabapentin 300 mg capsule 300 mg PO DAILY 02/08/20 01/30/23 01/16/23 History sertraline 100 mg tablet 100 mg PO DAILY 02/08/20 01/31/23 02/07/20 History potassium chloride 20 mEq 20 meq PO DAILY #30 tabs 02/25/21 01/31/23 Unknown Rx tablet,extended release(part/cryst) (Klor-Con M) cyclobenzaprine 5 mg tablet 5 mg PO TID PRN Muscle Spasm 06/07/22 01/30/23 Unknown History furosemide 40 mg tablet 40 mg PO DAILY #90 tabs 11/09/22 01/31/23 Unknown Rx rosuvastatin 20 mg tablet 20 mg PO DAILY #90 tabs 11/09/22 01/31/23 Unknown Rx nitroglycerin 0.4 mg sublingual 0.4 mg sublingual Q5M PRN chest 01/10/23 01/30/23 Unknown Rx tablet (Nitrostat) pain #25 tabs isosorbide mononitrate 30 mg 30 mg PO DAILY 01/30/23 01/31/23 Unknown History tablet,extended release 24 hr metoprolol tartrate 25 mg tablet 12.5 mg PO DAILY 01/30/23 01/31/23 Unknown History ondansetron HCl 8 mg tablet 8 mg PO Q8H PRN Nausea 01/30/23 01/30/23 Unknown History pantoprazole 40 mg tablet,delayed 40 mg PO DAILY 01/30/23 01/31/23 Unknown History release sucralfate 1 gram tablet 1 g PO DAILY 01/30/23 01/31/23 Unknown History aspirin 81 mg tablet,delayed 81 mg PO DAILY 01/31/23 01/31/23 Unknown History release calcium carbonate 500 mg calcium 500 mg PO DAILY 01/31/23 01/31/23 Unknown History (1,250 mg) tablet Allergies Allergy/AdvReac Type Severity Reaction Status Date / Time No Known Allergies Allergy Verified 01/30/23 15:23 Current Medications Generic Name Dose Route Start Last Admin Trade Name Dori PRN Reason Stop Dose Admin Acetaminophen 650 mg 01/30/23 18:38 02/03/23 03:47 Acetaminophen 325 Mg Tablet PO 650 mg Q6H PRN Administration Mild/Mod Pain Or Temp >/= 101 Hydrocodone Bitart/Acetaminophen 1 tab 02/01/23 16:40 02/02/23 19:50 Hydrocodone-Acetaminophen 5-325 Mg Tablet PO 1 tab Q4H PRN Administration MODERATE PAIN Aspirin 81 mg 01/31/23 09:00 02/03/23 11:04 Aspirin 81 Mg Ec Tablet PO 81 mg DAILY FLORIN Administration Atorvastatin Calcium 20 mg 01/30/23 21:00 02/02/23 19:51 Atorvastatin 40 Mg Tablet PO 20 mg BEDTIME FLORIN Administration Enoxaparin Sodium 40 mg 01/30/23 18:45 02/01/23 18:09 Enoxaparin 40 Mg/0.4 Ml Syringe SUBCUT 40 mg Q24H FLORIN Administration Gabapentin 300 mg 02/01/23 09:00 02/03/23 11:04 Gabapentin 300 Mg Capsule PO 300 mg DAILY FLORIN Administration Ceftriaxone Sodium 1,000 mg/ 50 mls @ 100 mls/hr 02/02/23 11:00 02/03/23 11:05 Sodium Chloride IV 50 mls/hr Q24H FLORIN Administration Protocol Isosorbide Mononitrate 60 mg 02/03/23 09:00 02/03/23 11:05 Isosorbide Mononitrate Er 60 Mg Tablet PO 60 mg DAILY FLORIN Administration Metoclopramide HCl 5 mg 01/31/23 16:38 01/31/23 17:56 Metoclopramide 5 Mg/Ml Sdv 2 Ml IVP 5 mg Q6H PRN Administration NAUSEA AND VOMITING Metoprolol Tartrate 12.5 mg 02/01/23 09:00 02/03/23 11:05 Metoprolol Tartrate 25 Mg Tablet PO 12.5 mg DAILY FLORIN Administration Nitroglycerin 0.4 mg 01/30/23 18:55 01/31/23 09:45 Nitroglycerin 0.4 Mg Sublingual Tablet SUBLINGUAL 0.4 mg Q5M PRN Administration CHEST PAIN Ondansetron HCl 4 mg 01/31/23 16:38 02/01/23 09:40 Ondansetron 2 Mg/Ml Sdv 2 Ml IVP 4 mg Q6H PRN Administration NAUSEA AND VOMITING Pantoprazole Sodium 40 mg 01/30/23 18:45 02/02/23 18:14 Pantoprazole 40 Mg Sdv IVP 40 mg Q24H FLORIN Administration Sertraline HCl 100 mg 02/01/23 09:00 02/03/23 10:38 Sertraline 100 Mg Tablet PO Not Given DAILY FLORIN Sucralfate 1 gm 02/01/23 09:00 02/03/23 10:38 Sucralfate 1 Gm Tablet PO Not Given DAILY FLORIN PFSH Acute PFSH: Medical History CAD (coronary artery disease) Diabetes mellitus Heart failure HLD (hyperlipidemia) Hypertension Peptic ulcer disease Renal failure Surgical History H/O: hysterectomy History of coronary artery stent placement History of percutaneous coronary intervention Social History Smoking and tobacco status: never smoked Household members: spouse Marital status: Vitals/I&O/Wt Last Vital Signs Temp 98.3 F 02/03/23 11:40 Pulse 77 02/03/23 11:40 Resp 15 02/03/23 11:40 BP 154/84 02/03/23 11:40 Pulse Ox 97 02/03/23 11:40 O2 Del Method Room Air 02/03/23 11:40 02/03/23 02/03/23 02/03/23 06:59 14:59 22:59 Intake Total 500 / 1030 Output Total 350 / 350 Balance 150 / 680 Weight last 48 hrs Weight 140 lb 4.8 oz Weight 146 lb 1.6 oz Physical Exam Narrative: GENERAL: Patient is alert, awake and oriented x3. [] NECK: No jugular vein distension. [] HEENT: No cyanosis. No icterus. No pallor. [] HEART: Regular S1 and S2. No murmur, rub or gallop. [] LUNGS: Clear to auscultate bilaterally. [] CENTRAL NERVOUS SYSTEM: Grossly nonfocal. [] EXTREMITIES: Lower extremities with 1+ edema bilaterally. Pulses palpable in the lower extremities, both dorsalis pedis and posterior tibial. [] Data 02/04/23 03:41 02/04/23 03:41 Micro: Microbiology 01/30/23 15:41 Blood Culture - Final Blood Escherichia coli 01/30/23 15:45 Blood Culture - Final Blood Escherichia coli A&P Assessment and plan (1) Anemia: (2) Chest pain: (3) Elevated troponin: (4) Heart failure with preserved ejection fraction: (5) Pyelonephritis: (6) CAD (coronary artery disease): Plan Patient has been having on and off chest pain symptoms. Initial troponin was also elevated. Significant taylor-infarct ischemia in left circumflex artery territory. He should have coronary angiogram performed however because of anemia, we will obtain Hemoccult blood. If by tomorrow Hemoccult blood is negative and patient's hemoglobin does not drop further we will proceed with coronary angiogram . However if hemoglobin drops further, we will put patient on Plavix and continue to monitor hemoglobin and get further GI evaluation. Continue current medications. Thank you for involving us with care of this patient. We will continue to follow. Please call with questions. Consult Attestations Medical Necessity Statement: Care expected to cross 2 midnights. Coding Level of Care Code Acute Code for [facility] Diagnoses Anemia D64.9 Chest pain R07.9 Elevated troponin R77.8 Heart failure with preserved ejection fraction I50.30 Pyelonephritis N12 CAD (coronary artery disease) I25.10
[2023-02-03] MEDS: ondansetron 2 mg/ML SDV 2 mL 4 MG IVP (16:20)
--- NOTE | 2023-02-03 17:22 | P.PN_ITS ---
Subjective Subjective: Afebrile, hemodynamically stable, leukocytosis remains resolved. Doing well from an infectious standpoint. Stress test that was performed yesterday returned abnormal. Cardiology service has been consulted. Hemoglobin stable at 8.2 today. Hemoccult was checked at bedside which is negative. Medications: Reviewed: Yes Vitals/I&O/Wt Last Vital Signs Temp 98.5 F 02/03/23 16:00 Pulse 72 02/03/23 16:00 Resp 14 02/03/23 16:00 BP 141/76 02/03/23 16:00 Pulse Ox 95 02/03/23 16:00 O2 Del Method Room Air 02/03/23 16:00 02/03/23 02/03/23 02/03/23 06:59 14:59 22:59 Intake Total 500 / 1030 Output Total 350 / 350 Balance 150 / 680 Weight last 48 hrs Weight 63.639 kg Weight 66.27 kg Physical Exam Narrative: General: No acute distress, AO x3 HEENT: PERRLA, pupils bilaterally equal and reactive, pallors not present Chest: Normal vesicular breath sounds, no added sounds, equal good air entry bilaterally CVS: S1-S2 regular, no murmurs, no tachycardia, no gallops, no rubs Abdomen: Soft, nontender, no organomegaly, bowel sounds present Neuro: No focal deficits, no facial deformity, AO x3, power 5/5 in all limbs Data 02/03/23 04:21 02/03/23 04:21 Micro: Microbiology 01/30/23 15:41 Blood Culture - Final Blood Escherichia coli 01/30/23 15:45 Blood Culture - Final Blood Escherichia coli A&P Assessment and plan (1) Sepsis: (2) Pyelonephritis: (3) CAD (coronary artery disease): (4) Diabetes mellitus: (5) Hypertension: Qualifiers: Hypertension type: essential hypertension Qualified Code(s): I10 - Essential (primary) hypertension (6) Heart failure with preserved ejection fraction: (7) Anemia: (8) Diarrhea: (9) Elevated troponin: Plan Sepsis is resolved Leukocytosis is improving, Hemodynamically stable. Blood and urine cultures reported with E. coli, dunne-S continue Ceftriaxone 2g iv q24h , anticipate discharge on po ciprofloxacin for total [address] of the abdomen and pelvis without any urinary obstruction. Bilateral perinephric stranding thought to be related to possible CKD versus possible pyelonephritis. Hydration status is currently improving. Patient carries a past medical history of CHF for which she takes Lasix every day. holding lasix for now Encourage p.o. intake. Still with nausea, improved over yesterday ZAK on CKD, likely related to dehydration, monitor for serial improvement. Noted also to be anemic, hemoglobin drifting down to 8.0. Patient recently had EGD with Dr. Vides,per verabl report from [facility], mild gastritis noted, no active bleeding. Last colono was 6-7 years ago at [facility]. Pending stool studies d/c plavix Elevated troponins noted, baseline at 134, trending down at 2 one 6-hour with negative delta's. Concern for possible demand supply mismatch/type II [place] versus NSTEMI. No acute ST-T wave changes on EKG. echocardiogram shows Normal left ventricular size, systolic function and wall ?thickness, with no regional wall motion abnormalities. Grade ?I/IV diastolic dysfunction?. LVEF 60% Continue Plavix 75 mg p.o. daily stress test was abnormal on February 02, 2023. Cardiology service has been consulted, plan for coronary angiogram tomorrow after Hemoccult testing has resulted as negative. HTN, this is better controlled after increasing the dose of Imdur yesterday, however since increasing the dose patient complains of a headache. Reduce the dose of Imdur back to 30 mg daily. Add amlodipine 10 mg p.o. daily for blood pressure management. CODE: FULL DVT prophylaxis: Lovenox PUD prophylaxis: protonix Attestations Medical Necessity Statement*: Plan angiogram tomorrow Coding Level of Care Code Acute Code for Chg Fwd Diagnoses Sepsis A41.9 Pyelonephritis N12 CAD (coronary artery disease) I25.10 Diabetes mellitus E11.9 Hypertension I10 Hypertension type: essential hypertension Heart failure with preserved ejection fraction I50.30 Anemia D64.9 Diarrhea R19.7 Elevated troponin R77.8
[2023-02-03] MEDS: pantoprazole 40 mg SDV IVP (18:04)
[2023-02-03] MEDS: HYDROcodone-acetaminophen 5-325 mg Tablet 1 TAB PO (19:35)
[2023-02-03] MEDS: atorvastatin 40 mg Tablet 20 MG PO (19:35)
[2023-02-04] VITALS (11 sets, daily range): BP systolic 115–146; BP diastolic 60–78; PULSE 70–94; RESP 16–21; TEMP 36.8–37; O2SAT 94–97
[2023-02-04 04:17] LABS: Basophils # 0.1 10^3/uL (0.0-0.1); Basophils % 0.6 %; Eosinophils # 0.2 10^3/uL (0.0-0.8); Eosinophils % 2.1 %; Hematocrit 25.9 % (37.0-47.0); Hemoglobin 7.8 g/dL (11.5-15.3); Lymphocytes # 1.7 10^3/uL (0.8-4.8); Lymphocytes % 16.1 %; Mean Corpuscular HGB Conc 30.1 g/dL (30.0-36.0); Mean Corpuscular Hemoglobin 22.9 pg (28.0-34.0); Mean Corpuscular Volume 76.2 fl (81-99); Mean Platelet Volume 8.5 fL (7.4-10.4); Monocytes # 0.8 10^3/uL (0.2-0.9); Monocytes % 7.8 %; Neutrophils # 7.66 10^3/uL (1.8-7.7); Neutrophils % 71.5 %; Nucleated Red Blood Cells % 0 %; Platelet Count 350 10^3/cmm (130-400); Red Cell Distribution Width 16.1 % (12.1-15.1); White Blood Count 10.7 10^3/uL (4.0-10.0)
[2023-02-04 04:36] LABS: Alanine Aminotransferase 17 U/L (0-33); Albumin Level 2.5 g/dL (3.5-5.2); Alkaline Phosphatase 112 U/L (35-105); Anion Gap 16.4 (5-19); Aspartate Amino Transferase 23 U/L (0-32); Blood Urea Nitrogen 12 mg/dL (8-23); Calcium 8.3 mg/dL (8.5-10.5); Carbon Dioxide 22 mmol/L (22-29); Chloride 101 mmol/L (98-107); Creatinine Clr Calc Pharmacy 43.7116; Globulin 3.8 g/dL (1.3-4.6); Glucose 106 mg/dL (65-115); Osmolality Calculated 282 mOsm/kg (285-295); Potassium 3.4 mmol/L (3.5-5.1); Sodium 136 mmol/L (136-145); Total Bilirubin 0.2 mg/dL (0.15-1.2); Total Protein 6.3 g/dL (6.6-8.7)
[2023-02-04] MEDS: metoprolol tartrate 25 mg Tablet 12.5 MG PO (08:44)
[2023-02-04] MEDS: gabapentin 300 mg Capsule PO (08:44)
[2023-02-04] MEDS: sucralfate 1 gm Tablet PO (08:44)
[2023-02-04] MEDS: isosorbide mononitrate ER 30 mg Tablet PO (08:44)
[2023-02-04] MEDS: aspirin 81 mg EC Tablet PO (08:44)
[2023-02-04] MEDS: amlodipine 10 mg Tablet PO (08:44)
[2023-02-04] MEDS: sertraline 100 mg Tablet PO (08:44)
[2023-02-04] MEDS: cefTRIAXone 1,000 MG in sodium chloride 0.9% (plus) 50 ML 100 MG IV (12:12)
--- NOTE | 2023-02-04 13:41 | PC.SOCIAL ---
IMM Updated Updated pt on IMM. No questions voiced. Provided pt a copy. Initialed, dated, & timed copy in chart.
--- NOTE | 2023-02-04 13:46 | P.CONIM_ITS ---
Providers/Reason For Consult Consulting Physician/Specialty*: General Surgery Reason for Consult*: Iron-deficiency anemia with negative upper gastrointestinal workup Attending Physician: Keyanna Quinn MD Primary Care Provider: Annel Gill History of Present Illness History of Present Illness Patricia Benito is a 77 year old female who presents with a complex history of profound anemia necessitating transfusion, in conjunction with recent evaluation of her foregut which failed to reveal a source of bleeding. She is found to have changes on coronary stress testing and concern is raised as to whether she has a source of angina that can be treated by interventional cardiology. She states that she has never had a colonoscopy, and this physician is asked to assess for possible colonoscopy on this admission. Review of Systems General: Reports: 10 or more systems reviewed and unremarkable except in HPI and below Const: Denies: fever(s) or chills Eyes: Denies: change in vision ENMT: Denies: throat pain, odynophagia or hoarseness Card: Reports: chest pain, lightheadedness and dyspnea on exertion (Patient states that she cannot climb more than three steps without dyspnea) Resp: Reports: dyspnea and chest congestion GI: Reports: diarrhea and change in bowel habits; Denies: hematochezia or melena : Denies: flank pain or hematuria Neuro: Reports: headache(s) Kt/Lymph: Reports: easy bruising and petechiae Medications/Allergies Home Medications Medication Instructions Recorded Confirmed Last Taken Type Vitamin B-12 1 tab PO DAILY 02/08/20 01/31/23 02/07/20 History gabapentin 300 mg capsule 300 mg PO DAILY 02/08/20 01/30/23 01/16/23 History sertraline 100 mg tablet 100 mg PO DAILY 02/08/20 01/31/23 02/07/20 History potassium chloride 20 mEq 20 meq PO DAILY #30 tabs 02/25/21 01/31/23 Unknown Rx tablet,extended release(part/cryst) (Klor-Con M) cyclobenzaprine 5 mg tablet 5 mg PO TID PRN Muscle Spasm 06/07/22 01/30/23 Unknown History furosemide 40 mg tablet 40 mg PO DAILY #90 tabs 11/09/22 01/31/23 Unknown Rx rosuvastatin 20 mg tablet 20 mg PO DAILY #90 tabs 11/09/22 01/31/23 Unknown Rx nitroglycerin 0.4 mg sublingual 0.4 mg sublingual Q5M PRN chest 01/10/23 01/30/23 Unknown Rx tablet (Nitrostat) pain #25 tabs isosorbide mononitrate 30 mg 30 mg PO DAILY 01/30/23 01/31/23 Unknown History tablet,extended release 24 hr metoprolol tartrate 25 mg tablet 12.5 mg PO DAILY 01/30/23 01/31/23 Unknown History ondansetron HCl 8 mg tablet 8 mg PO Q8H PRN Nausea 01/30/23 01/30/23 Unknown His tory pantoprazole 40 mg tablet,delayed 40 mg PO DAILY 01/30/23 01/31/23 Unknown History release sucralfate 1 gram tablet 1 g PO DAILY 01/30/23 01/31/23 Unknown History aspirin 81 mg tablet,delayed 81 mg PO DAILY 01/31/23 01/31/23 Unknown History release calcium carbonate 500 mg calcium 500 mg PO DAILY 01/31/23 01/31/23 Unknown History (1,250 mg) tablet Allergies Allergy/AdvReac Type Severity Reaction Status Date / Time No Known Allergies Allergy Verified 01/30/23 15:23 Current Medications Generic Name Dose Route Start Last Admin Trade Name Freq PRN Reason Stop Dose Admin Acetaminophen 650 mg 01/30/23 18:38 02/03/23 03:47 Acetaminophen 325 Mg Tablet PO 650 mg Q6H PRN Administration Mild/Mod Pain Or Temp >/= 101 Hydrocodone Bitart/Acetaminophen 1 tab 02/01/23 16:40 02/03/23 19:35 Hydrocodone-Acetaminophen 5-325 Mg Tablet PO 1 tab Q4H PRN Administration MODERATE PAIN Amlodipine Besylate 10 mg 02/04/23 09:00 02/04/23 08:44 Amlodipine 10 Mg Tablet PO 10 mg DAILY FLORIN Administration Aspirin 81 mg 01/31/23 09:00 02/04/23 08:44 Aspirin 81 Mg Ec Tablet PO 81 mg DAILY FLORIN Administration Atorvastatin Calcium 20 mg 01/30/23 21:00 02/03/23 19:35 Atorvastatin 40 Mg Tablet PO 20 mg BEDTIME FLORIN Administration Enoxaparin Sodium 40 mg 01/30/23 18:45 02/01/23 18:09 Enoxaparin 40 Mg/0.4 Ml Syringe SUBCUT 40 mg Q24H FLORIN Administration Gabapentin 300 mg 02/01/23 09:00 02/04/23 08:44 Gabapentin 300 Mg Capsule PO 300 mg DAILY FLORIN Administration Ceftriaxone Sodium 1,000 mg/ 50 mls @ 100 mls/hr 02/02/23 11:00 02/04/23 12:12 Sodium Chloride IV 100 mls/hr Q24H FLORIN Administration Protocol Isosorbide Mononitrate 30 mg 02/04/23 09:00 02/04/23 08:44 Isosorbide Mononitrate Er 30 Mg Tablet PO 30 mg DAILY FLORIN Administration Metoclopramide HCl 5 mg 01/31/23 16:38 01/31/23 17:56 Metoclopramide 5 Mg/Ml Sdv 2 Ml IVP 5 mg Q6H PRN Administration NAUSEA AND VOMITING Metoprolol Tartrate 12.5 mg 02/01/23 09:00 02/04/23 08:44 Metoprolol Tartrate 25 Mg Tablet PO 12.5 mg DAILY FLORIN Administration Nitroglycerin 0.4 mg 01/30/23 18:55 01/31/23 09:45 Nitroglycerin 0.4 Mg Sublingual Tablet SUBLINGUAL 0.4 mg Q5M PRN Administration CHEST PAIN Ondansetron HCl 4 mg 01/31/23 16:38 02/03/23 16:20 Ondansetron 2 Mg/Ml Sdv 2 Ml IVP 4 mg Q6H PRN Administration NAUSEA AND VOMITING Pantoprazole Sodium 40 mg 01/30/23 18:45 02/03/23 18:04 Pantoprazole 40 Mg Sdv IVP 40 mg Q24H FLORIN Administration Sertraline HCl 100 mg 02/01/23 09:00 02/04/23 08:44 Sertraline 100 Mg Tablet PO 100 mg DAILY FLORIN Administration Sucralfate 1 gm 02/01/23 09:00 02/04/23 08:44 Sucralfate 1 Gm Tablet PO 1 gm DAILY FLORIN Administration PFSH Acute PFSH: Medical History CAD (coronary artery disease) Diabetes mellitus Heart failure HLD (hyperlipidemia) Hypertension Peptic ulcer disease Renal failure Surgical History H/O: hysterectomy History of coronary artery stent placement History of percutaneous coronary intervention Social History Smoking and tobacco status: never smoked Household members: spouse Marital status: Vitals/I&O/Wt Last Vital Signs Temp 98.6 F 02/04/23 11:50 Pulse 72 02/04/23 11:50 Resp 16 02/04/23 11:50 BP 115/66 02/04/23 11:50 Pulse Ox 97 02/04/23 11:50 O2 Del Method Room Air 02/04/23 11:50 02/03/23 02/04/23 02/04/23 22:59 06:59 14:59 Intake Total 290 / 290 800 / 1090 480 / 480 Output Total 900 / 900 0 / 900 Balance -610 / -610 800 / 190 480 / 480 Weight last 48 hrs Weight 141 lb 11.2 oz Weight 140 lb 4.8 oz Physical Exam Narrative: WDWN female in no acute distress Const: COMMON NORMALS: patient oriented x3 HENMT: COMMON NORMALS: normocephalic and hearing grossly normal bilaterally HEAD & SCALP: normocephalic Eye: COMMON NORMALS: Equal, round and reactive pupils present, EOMs intact bilaterally and no scleral icterus PUPIL: Yes Equal, round and reactive pupils present Resp: COMMON NORMALS: normal respiratory effort and clear to auscultation bilaterally AUSCULTATION: clear to auscultation bilaterally GI: COMMON NORMALS: non-tender and no masses : COMMON NORMALS: Yes no CVA tenderness BLADDER/KIDNEY EXAM: Yes no CVA tenderness Back/Pelvis: COMMON NORMALS: no CVA tenderness Neuro: COMMON NORMALS: patient oriented x3, CN's II-XII intact bilaterally, no focal motor deficits and no sensory deficits noted Psych: COMMON NORMALS: mental status grossly normal, cooperative and normal affect Data 02/04/23 03:41 02/04/23 03:41 A&P Assessment and plan (1) Anemia: Plan: I am going to initiate bowel preparation for colonoscopy, but also shared with her primary physician that I think providing sedation for that procedure places patient at a relatively high risk of acute coronary event which could be quite severe. I will await input from anesthesia, but I'm not sure this procedure can be accomplished safely until after her coronary procedure. In that setting, bare metal stents would certainly have to be a consideration in anticiation of possible colon procedures that would require near-normal coagulation profile. Coding Level of Care Code Acute Code for Chg Fwd Diagnoses Anemia D64.9
--- NOTE | 2023-02-04 13:59 | PM.PN ---
Subjective Subjective: Hemoglobin trended down to 7.8 today. No new complaints from patient. Complains of generalized weakness. Headache is improved today. Medications: Reviewed: Yes Vitals/I&O/Wt Last Vital Signs Temp 98.6 F 02/04/23 11:50 Pulse 72 02/04/23 11:50 Resp 16 02/04/23 11:50 BP 115/66 02/04/23 11:50 Pulse Ox 97 02/04/23 11:50 O2 Del Method Room Air 02/04/23 11:50 02/03/23 02/04/23 02/04/23 22:59 06:59 14:59 Intake Total 290 / 290 800 / 1090 480 / 480 Output Total 900 / 900 0 / 900 Balance -610 / -610 800 / 190 480 / 480 Weight last 48 hrs Weight 64.274 kg Weight 63.639 kg Physical Exam Narrative: General: No acute distress, AO x3 HEENT: PERRLA, pupils bilaterally equal and reactive, pallors not present Chest: Normal vesicular breath sounds, no added sounds, equal good air entry bilaterally CVS: S1-S2 regular, no murmurs, no tachycardia, no gallops, no rubs Abdomen: Soft, nontender, no organomegaly, bowel sounds present Neuro: No focal deficits, no facial deformity, AO x3, power 5/5 in all limbs Data 02/04/23 03:41 02/04/23 03:41 A&P Assessment and plan (1) Sepsis: (2) Pyelonephritis: (3) CAD (coronary artery disease): (4) Diabetes mellitus: (5) Hypertension: Qualifiers: Hypertension type: essential hypertension Qualified Code(s): I10 - Essential (primary) hypertension (6) Heart failure with preserved ejection fraction: (7) Anemia: (8) Diarrhea: (9) Elevated troponin: Plan Sepsis is resolved Leukocytosis is improving, Hemodynamically stable. Blood and urine cultures reported with E. coli, dunne-S continue Ceftriaxone 2g iv q24h , anticipate discharge on po ciprofloxacin for total [address] of the abdomen and pelvis without any urinary obstruction. Bilateral perinephric stranding thought to be related to possible CKD versus possible pyelonephritis. Hydration status is currently improving. Patient carries a past medical history of CHF for which she takes Lasix every day. holding lasix for now Encourage p.o. intake. Still with nausea, improved over yesterday ZAK on CKD, likely related to dehydration, monitor for serial improvement. Noted also to be anemic, hemoglobin drifting down to 8.0. Patient recently had EGD with Dr. Vides,per verabl report from [facility], mild gastritis noted, no active bleeding. Last colono was 6-7 years ago at [facility]. Pending stool studies d/c plavix Elevated troponins noted, baseline at 134, trending down at 2 one 6-hour with negative delta's. Concern for possible demand supply mismatch/type II [place] versus NSTEMI. No acute ST-T wave changes on EKG. echocardiogram shows Normal left ventricular size, systolic function and wall ?thickness, with no regional wall motion abnormalities. Grade ?I/IV diastolic dysfunction?. LVEF 60% Continue Plavix 75 mg p.o. daily stress test was abnormal on February 02, 2023. Cardiology service has been consulted, plan for coronary angiogram tomorrow after Hemoccult testing has resulted as negative. HTN, this is better controlled after increasing the dose of Imdur yesterday, however since increasing the dose patient complains of a headache. Reduce the dose of Imdur back to 30 mg daily. Add amlodipine 10 mg p.o. daily for blood pressure management. CODE: FULL DVT prophylaxis: Lovenox PUD prophylaxis: protonix Plan for today: Patient planned to undergo angiogram, however serial hemoglobin dropping during course of admission. We will attempt to obtain colonoscopy before proceeding with angiogram as patient would need to be on dual antiplatelet therapy over the next year. General surgery service has been consulted. Currently chest pain-free. Attestations Medical Necessity Statement*: General surgery assessment colonoscopy, planned angiogram. Coding Level of Care Code Acute Code for Chg Fwd Diagnoses Sepsis A41.9 Pyelonephritis N12 CAD (coronary artery disease) I25.10 Diabetes mellitus E11.9 Hypertension I10 Hypertension type: essential hypertension Heart failure with preserved ejection fraction I50.30 Anemia D64.9 Diarrhea R19.7 Elevated troponin R77.8
--- NOTE | 2023-02-04 14:54 | P.PN_ITS ---
Subjective Subjective: Patient is stable. Hemoglobin has dropped further to 7.8. Vitals/I&O/Wt Last Vital Signs Temp 98.3 F 02/04/23 14:35 Pulse 74 02/04/23 14:35 Resp 18 02/04/23 14:35 BP 134/70 02/04/23 14:35 Pulse Ox 95 02/04/23 14:35 O2 Del Method Room Air 02/04/23 11:50 02/03/23 02/04/23 02/04/23 22:59 06:59 14:59 Intake Total 290 / 290 800 / 1090 960 / 960 Output Total 900 / 900 0 / 900 Balance -610 / -610 800 / 190 960 / 960 Weight last 48 hrs Weight 141 lb 11.2 oz Weight 140 lb 4.8 oz Physical Exam Narrative: GENERAL: Patient is alert, awake and oriented x3. [] NECK: No jugular vein distension. [] HEENT: No cyanosis. No icterus. No pallor. [] HEART: Regular S1 and S2. No murmur, rub or gallop. [] LUNGS: Clear to auscultate bilaterally. [] CENTRAL NERVOUS SYSTEM: Grossly nonfocal. [] EXTREMITIES: Lower extremities with 1+ edema bilaterally. Pulses palpable in the lower extremities, both dorsalis pedis and posterior tibial. [] Data 02/04/23 03:41 02/04/23 03:41 A&P Assessment and plan (1) Anemia: (2) Chest pain: (3) Elevated troponin: (4) Heart failure with preserved ejection fraction: (5) Pyelonephritis: (6) CAD (coronary artery disease): Plan Patient's hemoglobin has dropped further. We will recommend putting patient on Plavix. Get GI evaluation for possible colonoscopy. If on dual antiplatelet therapy hemoglobin does not drop further and colonoscopy is negative for active, we will proceed with coronary angiogram in 2-3 days Continue current medications. Thank you for involving us with care of this patient. We will continue to follow. Please call with questions. Attestations Medical Necessity Statement*: Care expected to cross 2 midnights. Coding Level of Care Code Acute Code for [facility] Fwd Diagnoses Anemia D64.9 Chest pain R07.9 Elevated troponin R77.8 Heart failure with preserved ejection fraction I50.30 Pyelonephritis N12 CAD (coronary artery disease) I25.10
--- NOTE | 2023-02-04 15:02 | P.ANESUD_ITS ---
Pre-Anesthetic Update Pre-Anesthetic Assessment: Date of Surgery/Procedure: 02/04/23 Preop Ananya gnosis: Iron-deficiency anemia Proposed Procedure: Operation Date: 02/05/23 08:00 Proposed Procedures p Colonoscopy(Not Applicable) - Rubens Alvarez MD Changes from Pre-Anesthetic Assessment: Chart reviewed. 77 y/o with acute coronary syndrome, positive stress test and positive enzymes. Also, urosepsis with positive grame negative blood cultures, Anemic with negative EGD and neg stool hemocult. Disc with surgeon and agreed to defer procedure until cardiac intervention is undertaken. Labs Last 48hrs: Short CBC 02/03/23 02/04/23 Range/Units 04:21 03:41 WBC 9.0 10.7 H (4.0-10.0) 10^3/ uL Hgb 8.2 L 7.8 L (11.5-15.3) g/dL Hct 27.2 L 25.9 L (37.0-47.0) % MCV 76.0 L 76.2 L (81-99) fl Plt Count 294 350 (130-400) 10^3/c mm Neut % (Auto) 77.7 71.5 % Neut # (Auto) 7.01 7.66 (1.8-7.7) 10^3/u L BMP 02/03/23 02/04/23 04:21 03:41 Sodium 133 L 136 Potassium 3.3 L 3.4 L Chloride 102 101 Carbon Dioxide 20 L 22 BUN 15 12 Creatinine 1.0 H 1.1 H Glucose 95 106 Calcium 8.4 L 8.3 L Liver Function 02/03/23 02/04/23 Range/Units 04:21 03:41 Total Bilirubin 0.2 0.2 (0.15-1.2) mg/dL AST 30 23 (0-32) U/L ALT 19 17 (0-33) U/L Alkaline Phosphata se 133 H 112 H (35-105) U/L Albumin 2.4 L 2.5 L (3.5-5.2) g/dL Blood Bank 02/04/23 09:40 Blood Type A Positive Rho(D) Type Positive Antibody Screen Negative Vitals: Temperature 98.3 F 02/04/23 14:35 Temperature Source Oral 02/04/23 14:35 Pulse Rate 74 02/04/23 14:35 Pulse Rhythm Regular 01/31/23 08:00 Pulse Strength 3+ Normal 01/31/23 08:00 Respiratory Rate 18 02/04/23 14:35 Respiratory Effort Spontaneous, Non- Labored 02/02/23 07:48 Respiratory Depth Normal 01/31/23 09:44 Respiratory Patter n Normal 01/31/23 08:00 Blood Pressure 134/70 02/04/23 14:35 Blood Pressure Radha n 91 02/04/23 14:35 Blood Pressure Pos ition Supine 02/03/23 20:00 Pulse Oximetry 95 02/04/23 14:35 Oxygen Delivery Me thod Room Air 02/04/23 11:50 Sepsis Recent Feve r Within 48 Hours No 01/30/23 15:16 Sepsis New/Unexpla ined Change in Men colby Status No 01/30/23 15:16 Cardiac Studies: Echocardiogram 01/31/23 Echocardiogram Ultrasound 02/27/21 Sestamibi Stress Test (Cardiology) 02/01
[2023-02-04] MEDS: pantoprazole 40 mg SDV IVP (17:51)
[2023-02-04] MEDS: atorvastatin 40 mg Tablet 20 MG PO (21:48)
[2023-02-05] VITALS (8 sets, daily range): BP systolic 111–164; BP diastolic 53–79; PULSE 73–95; RESP 16–19; TEMP 36.4–37; O2SAT 95–97
[2023-02-05 07:21] LABS: Hematocrit 34.7 % (37.0-47.0); Hemoglobin 10.6 g/dL (11.5-15.3)
[2023-02-05] MEDS: gabapentin 300 mg Capsule PO (09:53)
[2023-02-05] MEDS: sucralfate 1 gm Tablet PO (09:53)
[2023-02-05] MEDS: sertraline 100 mg Tablet PO (09:53)
[2023-02-05] MEDS: amlodipine 10 mg Tablet PO (09:53)
[2023-02-05] MEDS: metoprolol tartrate 25 mg Tablet 12.5 MG PO (09:53)
[2023-02-05] MEDS: isosorbide mononitrate ER 30 mg Tablet PO (09:53)
[2023-02-05] MEDS: clopidogrel 75 mg Tablet PO (09:54)
[2023-02-05] MEDS: aspirin 81 mg EC Tablet PO (09:54)
[2023-02-05] MEDS: HYDROcodone-acetaminophen 5-325 mg Tablet 1 TAB PO (10:32)
[2023-02-05] MEDS: cefTRIAXone 1,000 MG in sodium chloride 0.9% (plus) 50 ML 100 MG IV (11:20)
--- NOTE | 2023-02-05 11:21 | PM.PN ---
Subjective Subjective: patient feels much improved today, she is in better spirits. Headache is resolved. colonoscopy was cancelled yesterday per anesthesia given concern for risks of a prolonged procedure in patient with positive stress test. Received 1 PRBC tranfusion yesterday to target hb >8. Hb now ~10. Resumed plavix Medications: Reviewed: Yes Vitals/I&O/Wt Last Vital Signs Temp 98.3 F 02/05/23 20:00 Pulse 83 02/05/23 20:00 Resp 19 H 02/05/23 20:00 BP 111/66 02/05/23 20:00 Pulse Ox 97 02/05/23 20:00 O2 Del Method Room Air 02/05/23 15:12 02/05/23 02/05/23 02/06/23 14:59 22:59 06:59 Intake Total 770 / 770 480 / 1250 Balance 770 / 770 480 / 1250 Weight last 48 hrs Weight 63.231 kg Weight 64.274 kg Physical Exam Narrative: General: No acute distress, AO x3 HEENT: PERRLA, pupils bilaterally equal and reactive, pallors not present Chest: Normal vesicular breath sounds, no added sounds, equal good air entry bilaterally CVS: S1-S2 regular, no murmurs, no tachycardia, no gallops, no rubs Abdomen: Soft, nontender, no organomegaly, bowel sounds present Neuro: No focal deficits, no facial deformity, AO x3, power 5/5 in all limbs Data 02/05/23 07:02 02/04/23 03:41 A&P Assessment and plan (1) Sepsis: (2) Pyelonephritis: (3) CAD (coronary artery disease): (4) Diabetes mellitus: (5) Hypertension: Qualifiers: Hypertension type: essential hypertension Qualified Code(s): I10 - Essential (primary) hypertension (6) Heart failure with preserved ejection fraction: (7) Anemia: (8) Diarrhea: (9) Elevated troponin: Plan # Sepsis is resolved Leukocytosis is improving, Hemodynamically stable. Blood and urine cultures reported with E. coli, dunne-S continue Ceftriaxone 2g iv q24h , anticipate discharge on po ciprofloxacin for total 14 days treatment (02/01-02/15) CT of the abdomen and pelvis without any urinary obstruction. Bilateral perinephric stranding thought to be related to possible CKD versus possible pyelonephritis. # ZAK on CKD, likely related to dehydration, improved #Noted also to be anemic, hemoglobin drifting down to 7.8. Patient recently had EGD with Dr. Vides,per verabl report from [facility], mild gastritis noted, no active bleeding. Last colono was 6-7 years ago at [facility]. bedside hemoccult negative. cancelled colonoscopy per anesthesia as above s/p 1prbc transfusion on 02/05 #Elevated troponins noted, baseline at 134, trending down at 2 one 6-hour with negative delta's. intermittent chest pain during admission , no new ekg changes abnormal stress test past h/o cad+ would be ideal to proceed with colonoscopy prior to proceeding with angiogram, however noted anesthesia team reservations for high risk as above. currently hemoccult negative with bedside test resumed asa and plavix if hb stable with starting dapt, plan for angiogram likely next week # HTN, currently controlled CODE: FULL DVT prophylaxis: Lovenox PUD prophylaxis: protonix Attestations Medical Necessity Statement*: iv abx, planned angiogram Coding Level of Care Code Acute Code for [facility] Fwd Diagnoses Sepsis A41.9 Pyelonephritis N12 CAD (coronary artery disease) I25.10 Diabetes mellitus E11.9 Hypertension I10 Hypertension type: essential hypertension Heart failure with preserved ejection fraction I50.30 Anemia D64.9 Diarrhea R19.7 Elevated troponin R77.8
[2023-02-05] MEDS: pantoprazole 40 mg SDV IVP (18:09)
[2023-02-05] MEDS: atorvastatin 40 mg Tablet 20 MG PO (20:42)
[2023-02-05] MEDS: acetaminophen 325 mg Tablet 650 MG PO (20:43)
[2023-02-05] MEDS: metoclopramide 5 mg/mL SDV 2 mL IVP (20:58)
[2023-02-06] VITALS (9 sets, daily range): BP systolic 113–147; BP diastolic 56–73; PULSE 66–86; RESP 16–18; TEMP 36.2–37.1; O2SAT 95–98
[2023-02-06] MEDS: clopidogrel 75 mg Tablet PO (08:08)
[2023-02-06] MEDS: amlodipine 10 mg Tablet PO (08:09)
[2023-02-06] MEDS: sertraline 100 mg Tablet PO (08:09)
[2023-02-06] MEDS: isosorbide mononitrate ER 30 mg Tablet PO (08:09)
[2023-02-06] MEDS: aspirin 81 mg EC Tablet PO (08:09)
[2023-02-06] MEDS: gabapentin 300 mg Capsule PO (08:09)
[2023-02-06] MEDS: metoprolol tartrate 25 mg Tablet 12.5 MG PO (08:09)
[2023-02-06] MEDS: sucralfate 1 gm Tablet PO (08:09)
[2023-02-06] MEDS: cefTRIAXone 1,000 MG in sodium chloride 0.9% (plus) 50 ML 100 MG IV (11:06)
--- NOTE | 2023-02-06 11:11 | PC.SOCIAL ---
IMM Updated Updated pt on IMM. No questions voiced. Provided pt a copy. Initialed, dated, & timed copy in chart.
[2023-02-06] MEDS: enoxaparin 40 mg/0.4 mL Syringe SUBCUT (17:55)
[2023-02-06] MEDS: acetaminophen 325 mg Tablet 650 MG PO (18:14)
[2023-02-06] MEDS: pantoprazole 40 mg SDV IVP (18:15)
[2023-02-06 19:51] LABS: Hematocrit 31.3 % (37.0-47.0)
[2023-02-06] MEDS: atorvastatin 40 mg Tablet 20 MG PO (20:26)
--- NOTE | 2023-02-06 21:05 | P.PN_ITS ---
Subjective Subjective: Patient reports she is feeling better. Denies any bleeding. Denies fevers, chills, shortness of breath or chest pains. Medications: Reviewed: Yes Vitals/I&O/Wt Last Vital Signs Temp 98 F 02/06/23 19:47 Pulse 79 02/06/23 19:47 Resp 17 02/06/23 19:47 BP 129/70 02/06/23 19:47 Pulse Ox 98 02/06/23 19:47 O2 Del Method Room Air 02/06/23 15:29 02/06/23 02/06/23 02/06/23 06:59 14:59 22:59 Intake Total 1010 / 1010 480 / 1490 Balance 1010 / 1010 480 / 1490 Weight last 48 hrs Weight 63.639 kg Weight 63.231 kg Physical Exam Narrative: General: Patient is awake and alert. Head: Normocephalic. Atraumatic. EOM intact. Neck: No JVD. Cardiovascular: No gallops. No murmurs. Lungs: Clear to auscultation, no use of accessory muscles, no crackles or wheezes. Skin: No jaundice. No rashes. Abdomen: Soft. Not distended. Normal bowel sounds. Extremities: No cyanosis or clubbing. Musculoskeletal: Normal muscular development. Neurological: No myoclonus. Moves all 4 extremities. Data 02/06/23 19:21 02/04/23 03:41 Micro: Microbiology 02/01/23 03:29 Blood Culture - Final Blood NO GROWTH AFTER 5 DAYS 02/01/23 03:25 Blood Culture - Final Blood NO GROWTH AFTER 5 DAYS A&P Assessment and plan (1) Sepsis: (2) Pyelonephritis: (3) CAD (coronary artery disease): (4) Diabetes mellitus: (5) Hypertension: Qualifiers: Hypertension type: essential hypertension Qualified Code(s): I10 - Essential (primary) hypertension (6) Heart failure with preserved ejection fraction: (7) Anemia: (8) Diarrhea: (9) Elevated troponin: Plan Sepsis -Leukocytosis is improving, Hemodynamically stable. -Blood and urine cultures reported with E. coli, dunne-S -Continue Ceftriaxone 2g iv q24h , anticipate discharge on po ciprofloxacin for total 14 days treatment (02/01-02/15) -CT of the abdomen and pelvis without any urinary obstruction. Bilateral perinephric stranding thought to be related to possible CKD versus possible pyelonephritis. ZAK on CKD -Improved Anemia -Patient recently had EGD with Dr. Vides,per verbal report from [facility], mild gastritis noted, no active bleeding. Last colono was 6-7 years ago at [facility]. -Bedside hemoccult negative. -Cancelled colonoscopy per anesthesia's cardiac concerns -S/p 1prbc transfusion on 02/05 Acute myocardial injury Intermittent chest pain Abnormal stress test Hx of CAD -Possible angiogram this week, NPO after midnight pending cardiology evaluation -Continue DAPT HTN -Continue current meds DVT ppx: SCD Code: Full Attestations Medical Necessity Statement*: Pt requires ongoing hospitalization for serial labs, cardiac cath, possible colonoscopy and supportive care. Coding Level of Care Code Acute Code for [facility] Fwd Diagnoses Sepsis A41.9 Pyelonephritis N12 CAD (coronary artery disease) I25.10 Diabetes mellitus E11.9 Hypertension I10 Hypertension type: essential hypertension Heart failure with preserved ejection fraction I50.30 Anemia D64.9 Diarrhea R19.7 Elevated troponin R77.8
[2023-02-06] MEDS: metoclopramide 5 mg/mL SDV 2 mL IVP (21:07)
[2023-02-07] VITALS (12 sets, daily range): BP systolic 121–163; BP diastolic 61–76; PULSE 65–82; RESP 16–22; TEMP 36.1–36.8; O2SAT 92–98
[2023-02-07 05:00] LABS: Basophils # 0.1 10^3/uL (0.0-0.1); Basophils % 0.9 %; Eosinophils # 0.1 10^3/uL (0.0-0.8); Hematocrit 34.2 % (37.0-47.0); Hemoglobin 10.5 g/dL (11.5-15.3); Lymphocytes # 1.5 10^3/uL (0.8-4.8); Lymphocytes % 16.4 %; Mean Corpuscular HGB Conc 30.7 g/dL (30.0-36.0); Mean Corpuscular Hemoglobin 24.1 pg (28.0-34.0); Mean Corpuscular Volume 78.6 fl (81-99); Mean Platelet Volume 8.1 fL (7.4-10.4); Monocytes # 0.5 10^3/uL (0.2-0.9); Monocytes % 5.6 %; Neutrophils # 6.84 10^3/uL (1.8-7.7); Neutrophils % 74.8 %; Nucleated Red Blood Cells % 0 %; Platelet Count 450 10^3/cmm (130-400); Red Blood Count 4.35 10^6/uL (4.1-5.3); Red Cell Distribution Width 17.5 % (12.1-15.1); White Blood Count 9.1 10^3/uL (4.0-10.0)
[2023-02-07 05:25] LABS: Albumin Level 2.6 g/dL (3.5-5.2); Anion Gap 17.6 (5-19); Blood Urea Nitrogen 9 mg/dL (8-23); Calcium 9.1 mg/dL (8.5-10.5); Carbon Dioxide 21 mmol/L (22-29); Chloride 103 mmol/L (98-107); Glucose 90 mg/dL (65-115); Magnesium 2.2 mg/dL (1.7-2.3); Phosphorus 3.7 mg/dL (2.5-4.5); Potassium 3.6 mmol/L (3.5-5.1); Sodium 138 mmol/L (136-145)
[2023-02-07] MEDS: metoprolol tartrate 25 mg Tablet 12.5 MG PO (08:59)
[2023-02-07] MEDS: aspirin 81 mg EC Tablet PO (09:00)
[2023-02-07] MEDS: sertraline 100 mg Tablet PO (09:00)
[2023-02-07] MEDS: amlodipine 10 mg Tablet PO (09:00)
[2023-02-07] MEDS: gabapentin 300 mg Capsule PO (09:00)
[2023-02-07] MEDS: sucralfate 1 gm Tablet PO (09:00)
[2023-02-07] MEDS: isosorbide mononitrate ER 30 mg Tablet PO (09:00)
[2023-02-07] MEDS: clopidogrel 75 mg Tablet PO (09:01)
--- NOTE | 2023-02-07 09:03 | XACV_ITS ---
Exam Room: [facility] Ht: 150 cm Wt: 63 kg BSA: 1.64 m2 Gender: Female : 1945 Any Known Allergies: No known allergies Exam Priority: Routine Procedure(s): Procedure Description: Diagnostic procedure Procedure Description: PCI procedure Procedure Description: PTCA Procedure Description: Coronary Angiography Procedure Description: Pressure Wire Diagnostic Cath Status: Elective Diagnostic Findings * INDICATION: Chest pain/abnormal stress test. * Left Main has no significant disease. * Left Anterior Descending has patent ostial stent. Mild to moderate luminal irregularities. * Right Coronary Artery has mild to moderate luminal irregularities.. * Osital Circumflex: obstructive 70% stenosis, DON: 3 flow. * Coronary angiography shows right dominance. PCI Status: Elective Interventional Findings * PROCEDURE DETAIL: Although patient's stress test was abnormal in the left circumflex artery territory, we decided to confirm ischemia in the left circumflex artery territory with IFR. We engaged left main artery with XB 3.5 guide catheter. IV heparin was administered to maintain anticoagulation. After normalization, we advanced IFR wire into the distal left circumflex artery. iFR value of 0.61 was obtained that confirmed significant ischemia in this territory. Given ostial location of the lesion, we decided to balloon that. Balloon angioplasty was performed with 3.0 x 12 mm semicompliant balloon. This expanded the vessel very well with no significant residual stenosis. We did not put a stent as ostial LAD stent was extending slightly back into the left main artery. Final angiogram was performed and guide catheter was removed. Patient left the Security Administrator in a stable condition.. * Proximal Circumflex: 70% stenosis treated with a AB TREK 3.00X12 RX BALLOON. 0% residual stenosis, DON: 3 flow. Conclusions 1. Severe ostial left circumflex artery stenosis confirmed with IFR value of 0.61. Status post successful 2. revascularization with balloon angioplasty.. 3. Proximal Circumflex was treated with a Balloon. Recommendations * Dual antiplatelet therapy with aspirin and Plavix. * High intensity statin therapy. * Outpatient cardiology follow up in 2 weeks. Interventional RX Recommendation: PCI w/o planned CABG Diagnostic RX Recommendation: PCI w/o planned CABG Anticoagulation: Heparin Pressures Phase:Rest AO : 113 / 75 ( 94 ) @ 11:46:00 AM 142 / 63 ( 95 ) @ 12:00:00 PM Clinical Evaluation EBL: 5mL-10mL Procedural Details Procedure Consent Obtained. Admit Source: In Patient. Pre-Procedure Time Out. Identified patient by full name and date of as verbalized by the patient/guarantor. Does the consent match the physician's order: Yes. Accurate & Complete Informed Consent: Yes. Inpatient/Outpatient History & Physical on Chart: Yes. If H&P is completed, is and addenduem needed: No; If yes, is the addendum complete: N/A. Visualize and Verify Site with Patient/Guarantor: N/A. Relevant Radiology Images available: N/A. The risks, benefits, and alternatives of sedation and/or procedure were discussed by physician. The patient agrees to continue. Procedure started. [facility] Clinical Fraility Score: 4: Vulnerable. Security Administrator Indications: Chest pain, abnormal stress test. Chest Pain Symptom Assessment: Atypical Angina. Correct patient, site and procedure confirmed by cath team. PERRLA. Strong, equal hand form building supervisor bilaterally. Lungs clear x 5 lobes. IV Site on Arrival: 20 gauge in the right anticubital. IV Site on Arrival: 22 gauge in the right hand. IV Fluids: 0.9% NaCl at KVO. 0 mL infused prior to clinical lab clerk. Oxygen started at 2liters/min via nasal canula. right radial was prepped with chloroprep then draped in the usual sterile fashion. right groin was prepped with chloroprep then draped in the usual sterile fashion. Baseline sample Acquired. HR: 92 BPM. Physician notified. Physician arrived. Physician scrubbed in. Immediate Pre-Procedure Time Out. Correct Patient: Yes; Correct Procedure: Yes; Correct Site: Yes; Correct Patient Position: Yes; Correct Supplies: Yes; Dried Flammable Prep: Yes; Blood Products Available: N/A;. Lidocaine 1% infiltrated to the right radial. Pre Procedural Pulses: bilateral radial was 2+. Pre Procedural Pulses: bilateral dorsalis pedis was 2+. Pre Procedural Pulses: bilateral posterior tibial was 1+. Arterial access obtained. A 5 italian TIG catheter in over wire. Multiple views taken of left coronary artery. Catheter redirected to the RCA. Multiple views taken of right coronary artery. Catheter out. 6 italian XB 3 guide catheter was inserted over the wire. Guide catheter out. Wire out. Lidocaine 1% infiltrated to the right groin. Arterial access obtained with micropuncture set. 6 italian XB 3 guide catheter was inserted over the wire. IFR wire inserted to ostial circ. IFR spot 0.61 of osital circ. Inflation number : 1 A AB TREK 3.00X12 RX BALLOON was prepped and advanced across the Prox CX , then inflated to 12 HOANG for 0:12 seconds. Balloon out. Results checked. Wire out. ACT drawn. Results 350 seconds. Therapeutic limits - pre-heparin administration 90-150 seconds and monitoring heparin during a vascular procedure >250 seconds. Guide catheter out. A Right femoral angiogram was performed to determine safe placement of closure device. Lidocaine 1% infiltrated to the right groin. Angioseal placed without complications. No signs or symptoms of hematoma noted. Sterile dressing applied per usual sterile fashion. lot # [id number] exp date 08/21/23. A Angio-Seal VIP ([employer]) was successful obtaining hemostatsis at the Right Femoral artery insertion site. A TR Band was successful obtaining hemostatsis at the Right Radial artery insertion site. Post Procedure: Pulses reassessed and unchanged. PERRLA. Strong, equal hand form building supervisor bilaterally. No VTE prophylaxis required. Medication's Wasted: Nitro = 49.8 mg. Medication's Wasted: Other = 50 mcg fentanyl. Total IV fluids: 62 mL. Post-op diagnosis: severe stenosis osital circ, post balloon angioplasty. Complications: none. Estimated blood loss: 5mL-10mL. Responsiveness - Normal response to verbal stimuli; alert and oriented, PERRLA. Airway - Unaffected, no intervention required; spontaneous ventilation. Circulation: W/N/L, pulses unchanged. Nausea/Vomiting: Yes. Procedure completed. Patient transferred by bed to CPRU. Vital chart was stopped. Access Site Site: Right Radial artery Sheath Size: 6 Fr Hemostasis Method: TR Band Hemostasis Success: Successful Site: Right Femoral artery Sheath Size: 6 Fr Hemostasis Method: Angio-Seal VIP (St[employer] Fam) Hemostasis Success: Successful Procedure Medications Start: 10:36 AM Stop: 10:36 AM Medication: Versed Amount: 1 mg Route: I.V. Start: 10:36 AM Stop: 10:36 AM Medication: Fentanyl Amount: 50 mcg Route: I.V. Start: 10:43 AM Stop: 10:43 AM Medication: Versed Amount: 1 mg Route: I.V. Start: 10:43 AM Stop: 10:43 AM Medication: Nitrogylcerin Amount: 200 mcg Route: I.A. Start: 10:45 AM Stop: 10:45 AM Medication: Heparin Amount: 4000 units Route: I.V. Start: 10:52 AM Stop: 10:52 AM Medication: Verapamil Amount: 5 mg Route: I.A. Start: 10:54 AM Stop: 10:54 AM Medication: Versed Amount: 1 mg Route: I.V. Start: 10:59 AM Stop: 10:59 AM Medication: Heparin Amount: 2000 units Route: I.V. Start: 11:00 AM Stop: 11:00 AM Medication: Versed Amount: 1 mg Route: I.V. Start: 11:23 AM Stop: 11:23 AM Medication: Plavix Amount: 300 mg Route: P.O. Start: 11:25 AM Stop: 11:25 AM Medication: Zofran (ondansetron) Amount: 4 mg Route: I.V. I, the attending physician, have reviewed and verified all procedure medications. Yes, all medications given per verbal order History/Risk Factors Hypertension: Yes Dyslipidemia: Yes Peripheral Arterial Disease (PAD): No Myocardial Infarction (IA): No Obesity: No Tobacco Use: Never Prior Interventions PCI: Yes CABG: No Valve Surgery: No Date of PCI: 01/25/2019 Report Signatures Finalized by Pk Olivier MD on 02/12/2023 06:04 PM
--- NOTE | 2023-02-07 10:22 | PM.PN ---
Subjective Subjective: Patient was put on dual antiplatelet therapy for last 3 days. No drop in hgb. Has been having on and off chest pain episodes. Vitals/I&O/Wt Last Vital Signs Temp 98.2 F 02/07/23 07:35 Pulse 81 02/07/23 07:35 Resp 16 02/07/23 07:35 BP 163/76 02/07/23 07:35 Pulse Ox 94 02/07/23 07:35 O2 Del Method Room Air 02/07/23 07:35 02/06/23 02/07/23 02/07/23 22:59 06:59 14:59 Intake Total 600 / 1610 Balance 600 / 1610 Weight last 48 hrs Weight 138 lb 4.8 oz Weight 140 lb 4.8 oz Physical Exam Narrative: GENERAL: Patient is alert, awake and oriented x3. [] NECK: No jugular vein distension. [] HEENT: No cyanosis. No icterus. No pallor. [] HEART: Regular S1 and S2. No murmur, rub or gallop. [] LUNGS: Clear to auscultate bilaterally. [] CENTRAL NERVOUS SYSTEM: Grossly nonfocal. [] EXTREMITIES: Lower extremities with 1+ edema bilaterally. Pulses palpable in the lower extremities, both dorsalis pedis and posterior tibial. [] Data 02/07/23 04:23 02/07/23 04:23 A&P Assessment and plan (1) Anemia: (2) Chest pain: (3) Elevated troponin: (4) Heart failure with preserved ejection fraction: (5) Pyelonephritis: (6) CAD (coronary artery disease): Plan Patient's hemoglobin has been stable on dual antiplatelet therapy. Hemoccult was negative. Given on and off chest discomfort episodes and abnormal stress test, plan for proceeding with coronary angiogram with possible percutaneous coronary intervention. Risks and benefits of the procedure have been discussed. Continue current medications. Thank you for involving us with care of this patient. We will continue to follow. Please call with questions. Attestations Medical Necessity Statement*: Care expected to cross 2 midnights. Coding Level of Care Code Acute Code for [facility] Fwd Diagnoses Anemia D64.9 Chest pain R07.9 Elevated troponin R77.8 Heart failure with preserved ejection fraction I50.30 Pyelonephritis N12 CAD (coronary artery disease) I25.10
--- NOTE | 2023-02-07 10:29 | W.PM.OPSUD ---
Surgery/Procedure H&P Update DATE OF PROCEDURE: February 07, 2023 DATE H&P PERFORMED: 02/03/23 H&P UPDATE INFORMATION: I have reviewed H&P completed within last 30 days, I have examined patient prior to procedure and No changes to prior documentation PREOP DIAGNOSIS: Chest pain/abnormal stress test PRIMARY INDICATION FOR PROCEDURE: Chest pain/abnormal stress test PLANNED PROCEDURE: Operation Date: 02/07/23 1000 Proposed Procedures Coronary angiogram with possible percutaneous coronary intervention PATIENT REASSESSED PRIOR TO SEDATION, WITH NO CHANGE NOTED: Yes PHYSICAL EXAM: alert, oriented x 3, clear to auscultation bilaterally and regular rate & rhythm AIRWAY EVAL/ANESTHESIA PLAN: normal airway, ASA III, Local Anesthesia, Risks, benefits & alternatives of sedation and/or procedure discussed and Patient agrees to continue as planned ADDITIONAL INFORMATION: Moderate sedation
--- NOTE | 2023-02-07 11:27 | PM.MISC ---
Miscellaneous Note Purpose of Documentation: Brief procedure note Note: Severe ostial left circumflex artery stenosis confirmed with iFR value of 0.61. There was a pinch at the ostial left circumflex from old LAD stent. Balloon angioplasty was performed that resolved the stenosis. New stent was not deployed because of ostial circumflex artery location, no residual stenosis and patient's anemia. Recommendations: Continue dual antiplatelet therapy with aspirin and plavix.
--- NOTE | 2023-02-07 11:44 | PC.NURSE ---
received pt from labor economist post angioplasty. pt tired but able to respond appropriately. pt complains of no pain. tr band on right wrist with distal pulses palpable. angioseal used on right groin site. no bruising or hematoma noted. distal pulses palpable. pt educated on restrictions and acknowledged understanding. at bedside but stated he will be leaving to let her rest. He would be back tonight to take care of her. Pt placed on vitals machine and will be monitored in CPRU for approximately 30 mins and then transferred to CSU. Brennon already received report from labor economist nurse.
--- NOTE | 2023-02-07 12:00 | PC.NURSE ---
From metallurgical laboratory assistant pt is awake, denies any chest pain or discomfort. TR band intact. right femoral artery angiosealed. no hematoma or bleeding. call light provided.
[2023-02-07] MEDS: cefTRIAXone 1,000 MG in sodium chloride 0.9% (plus) 50 ML 100 MG IV (12:44)
[2023-02-07] MEDS: sodium chloride 0.9% 1,000 ML 100 ML IV (12:48)
--- NOTE | 2023-02-07 16:56 | PC.NURSE ---
Tr Band off no hematoma, bleeding or swelling. radial pulse is palpable.
--- NOTE | 2023-02-07 17:20 | P.PN_ITS ---
Subjective Subjective: Patient was seen and examined this morning, she underwent PTCA today, currently H&H is stable, so far she has tolerated dual antiplatelet. Medications: Reviewed: Yes Medication Review Details: Generic Name Dose Route Start Last Admin Trade Name Freq PRN Reason Stop Dose Admin Acetaminophen 650 mg 01/30/23 18:38 02/06/23 18:14 Acetaminophen 32 5 Mg Tablet PO 650 mg Q6H PRN Administration Mild/Mod Pain Or Temp >/= 101 Amlodipine Besylat e 10 mg 02/04/23 09:00 02/07/23 09:00 Amlodipine 10 Mg Tablet PO 10 mg DAILY FLORIN Administration Aspirin 81 mg 01/31/23 09:00 02/07/23 09:00 Aspirin 81 Mg Ec Tablet PO 81 mg DAILY FLORIN Administration Atorvastatin Calci um 20 mg 01/30/23 21:00 02/06/23 20:26 Atorvastatin 40 Mg Tablet PO 20 mg BEDTIME FLORIN Administration Clopidogrel Bisulf ate 75 mg 02/05/23 09:00 02/07/23 09:01 Clopidogrel 75 M g Tablet PO 75 mg DAILY FLORIN Administration Enoxaparin Sodium 40 mg 01/30/23 18:45 02/06/23 17:55 Enoxaparin 40 Mg /0.4 Ml Syringe SUBCUT 40 mg Q24H FLORIN Administration Gabapentin 300 mg 02/01/23 09:00 02/07/23 09:00 Gabapentin 300 M g Capsule PO 300 mg DAILY FLORIN Administration Ceftriaxone Sodium 1,000 mg/ 50 mls @ 100 mls/ hr 02/02/23 11:00 02/07/23 13:20 Sodium Chloride IV Infused Q24H FLORIN Infusion Protocol Sodium Chloride 1,000 mls @ 100 m ls/hr 02/07/23 11:45 02/07/23 12:48 Sodium Chloride 0.9% IV 100 mls/hr .Q10H FLORIN Administration Isosorbide Mononit rate 30 mg 02/04/23 09:00 02/07/23 09:00 Isosorbide [place] itrate Er 30 Mg Ta blet PO 30 mg DAILY FLORIN Administration Metoclopramide HCl 5 mg 01/31/23 16:38 02/06/23 21:07 Metoclopramide 5 Mg/Ml Sdv 2 Ml IVP 5 mg Q6H PRN Administration NAUSEA AND VOMITI NG Metoprolol Tartrat e 12.5 mg 02/01/23 09:00 02/07/23 08:59 Metoprolol Tartr ate 25 Mg Tablet PO 12.5 mg DAILY FLORIN Administration Nitroglycerin 0.4 mg 01/30/23 18:55 01/31/23 09:45 Nitroglycerin 0. 4 Mg Sublingual Ta blet SUBLINGUAL 0.4 mg Q5M PRN Administration CHEST PAIN Ondansetron HCl 4 mg 01/31/23 16:38 02/03/23 16:20 Ondansetron 2 Mg /Ml Sdv 2 Ml IVP 4 mg Q6H PRN Administration NAUSEA AND VOMITI NG Pantoprazole Sodiu m 40 mg 01/30/23 18:45 02/06/23 18:15 Pantoprazole 40 Mg Sdv IVP 40 mg Q24H FLORIN Administration Sertraline HCl 100 mg 02/01/23 09:00 02/07/23 09:00 Sertraline 100 M g Tablet PO 100 mg DAILY FLORIN Administration Sucralfate 1 gm 02/01/23 09:00 02/07/23 09:00 Sucralfate 1 Gm Tablet PO 1 gm DAILY FLORIN Administration Vitals/I&O/Wt Last Vital Signs Temp 98.2 F 02/07/23 07:35 Pulse 73 02/07/23 16:00 Resp 18 02/07/23 16:00 BP 132/72 02/07/23 16:00 Pulse Ox 97 02/07/23 16:00 O2 Del Method Room Air 02/07/23 16:00 02/07/23 02/07/23 02/07/23 06:59 14:59 22:59 Intake Total 290 / 290 Balance 290 / 290 Weight last 48 hrs Weight 62.732 kg Weight 63.639 kg Physical Exam HENMT: COMMON NORMALS: normocephalic and atraumatic HEAD & SCALP: normocephalic and atraumatic Resp: COMMON NORMALS: clear to auscultation bilaterally AUSCULTATION: clear to auscultation bilaterally Cardio: COMMON NORMALS: regular rate, regular rhythm, S1 normal heart sound present, S2 normal heart sound present, No gallops present (Cardio), No murmurs present (Cardio), No rub (Cardio) and Peripheral pulses 2+ throughout RATE: regular rate RHYTHM: regular rhythm HEART SOUNDS: S1 normal heart sound present and S2 normal heart sound present PERIPHERAL PULSES: Peripheral pulses 2+ throughout GI: COMMON NORMALS: Normal to inspection, nondistended, normoactive bowel sounds present, Soft to palpation, non-tender, No hepatosplenomegaly present and no masses AUSCULTATION: Yes normoactive bowel sounds PALPATION: Yes Soft to palpation and Yes No hepatosplenomegaly present RECTAL EXAM: deferred Extremity: COMMON NORMALS: no clubbing, cyanosis or edema and no pedal edema Data 02/07/23 04:23 02/07/23 04:23 A&P Assessment and plan (1) Sepsis: (2) Pyelonephritis: (3) CAD (coronary artery disease): (4) Diabetes mellitus: (5) Hypertension: Qualifiers: Hypertension type: essential hypertension Qualified Code(s): I10 - Essential (primary) hypertension (6) Heart failure with preserved ejection fraction: (7) Anemia: (8) Diarrhea: (9) Elevated troponin: Plan # Sepsis is resolved Leukocytosis is improving, Hemodynamically stable. Blood and urine cultures reported with E. coli, dunne-S continue Ceftriaxone 2g iv q24h , anticipate discharge on po ciprofloxacin for total 14 days treatment (02/01-02/15) CT of the abdomen and pelvis without any urinary obstruction. Bilateral perinephric stranding thought to be related to possible CKD versus possible pyelonephritis. # ZAK on CKD, likely related to dehydration, improved #Noted also to be anemic, hemoglobin drifting down to 7.8. Patient recently had EGD with Dr. Vides,per verabl report from [facility], mild gastritis noted, no active bleeding. Last colono was 6-7 years ago at [facility]. bedside hemoccult negative. cancelled colonoscopy per anesthesia as above s/p 1prbc transfusion on 02/05 #Elevated troponins noted, baseline at 134, trending down at 2 one 6-hour with negative delta's. intermittent chest pain during admission , no new ekg changes abnormal stress test past h/o cad+ would be ideal to proceed with colonoscopy prior to proceeding with angiogram, however noted anesthesia team reservations for high risk as above. currently hemoccult negative with bedside test resumed asa and plavix S/p PTCA # HTN, currently controlled CODE: FULL DVT prophylaxis: Lovenox PUD prophylaxis: protonix Attestations Medical Necessity Statement*: Needs to be in hospital for management of chest pain status post PTCA. Coding Level of Care Code Acute Code for Chg Fwd Diagnoses Sepsis A41.9 Pyelonephritis N12 CAD (coronary artery disease) I25.10 Diabetes mellitus E11.9 Hypertension I10 Hypertension type: essential hypertension Heart failure with preserved ejection fraction I50.30 Anemia D64.9 Diarrhea R19.7 Elevated troponin R77.8
[2023-02-07] MEDS: pantoprazole 40 mg SDV IVP (20:39)
[2023-02-07] MEDS: atorvastatin 40 mg Tablet 20 MG PO (20:40)
[2023-02-07] MEDS: acetaminophen 325 mg Tablet 650 MG PO (22:04)
[2023-02-07] MEDS: ALPRAZolam 0.5 mg Tablet 0.25 MG PO (22:05)
[2023-02-08 00:48] VITALS: BP 138/61; PULSE 67; RESP 16; O2SAT 96
[2023-02-08 05:07] VITALS: PULSE 68; BMI 27.9
[2023-02-08 05:14] VITALS: BP 125/68; PULSE 64; RESP 17; O2SAT 96
--- NOTE | 2023-02-08 07:42 | PM.PN ---
Subjective Subjective: Patient is doing well. Denies complaints of chest pain. Access site is normal Vitals/I&O/Wt Last Vital Signs Temp 98.2 F 02/07/23 07:35 Pulse 64 02/08/23 05:14 Resp 17 02/08/23 05:14 BP 125/68 02/08/23 05:14 Pulse Ox 96 02/08/23 05:14 O2 Del Method Room Air 02/07/23 16:00 02/07/23 02/08/23 02/08/23 22:59 06:59 14:59 Intake Total 1000 / 1290 Balance 1000 / 1290 Weight last 48 hrs Weight 138 lb 4.8 oz Weight 138 lb 4.8 oz Physical Exam Narrative: GENERAL: Patient is alert, awake and oriented x3. [] NECK: No jugular vein distension. [] HEENT: No cyanosis. No icterus. No pallor. [] HEART: Regular S1 and S2. No murmur, rub or gallop. [] LUNGS: Clear to auscultate bilaterally. [] CENTRAL NERVOUS SYSTEM: Grossly nonfocal. [] EXTREMITIES: Lower extremities with 1+ edema bilaterally. Pulses palpable in the lower extremities, both dorsalis pedis and posterior tibial. [] Data 02/08/23 08:04 02/08/23 08:04 A&P Assessment and plan (1) Anemia: (2) Chest pain: (3) Elevated troponin: (4) Heart failure with preserved ejection fraction: (5) Pyelonephritis: (6) CAD (coronary artery disease): Plan Patient had balloon angioplasty of ostial left circumflex artery stenosis yesterday. She is doing well without any chest pain today. Will need outpatient CBC. Continue aspirin Plavix Close outpatient cardiology follow-up. Thank you for involving us with care of this patient. Please call with questions. Attestations Medical Necessity Statement*: Care expected to cross 2 midnights. Coding Level of Care Code Acute Code for [facility] Fwd Diagnoses Anemia D64.9 Chest pain R07.9 Elevated troponin R77.8 Heart failure with preserved ejection fraction I50.30 Pyelonephritis N12 CAD (coronary artery disease) I25.10
[2023-02-08 07:49] VITALS: BP 175/78; PULSE 76; RESP 19; O2SAT 97
[2023-02-08 08:15] LABS: Hemoglobin 10.3 g/dL (11.5-15.3); Mean Corpuscular HGB Conc 30.3 g/dL (30.0-36.0); Mean Corpuscular Volume 79.1 fl (81-99); Mean Platelet Volume 7.9 fL (7.4-10.4); Platelet Count 468 10^3/cmm (130-400); Red Cell Distribution Width 17.8 % (12.1-15.1); White Blood Count 7.2 10^3/uL (4.0-10.0)
[2023-02-08] MEDS: metoprolol tartrate 25 mg Tablet 12.5 MG PO (08:34)
[2023-02-08] MEDS: amlodipine 10 mg Tablet PO (08:35)
[2023-02-08] MEDS: clopidogrel 75 mg Tablet PO (08:35)
[2023-02-08] MEDS: sertraline 100 mg Tablet PO (08:35)
[2023-02-08] MEDS: isosorbide mononitrate ER 30 mg Tablet PO (08:35)
[2023-02-08] MEDS: sucralfate 1 gm Tablet PO (08:35)
[2023-02-08] MEDS: aspirin 81 mg EC Tablet PO (08:35)
[2023-02-08] MEDS: gabapentin 300 mg Capsule PO (08:35)
[2023-02-08 08:39] LABS: Anion Gap 16.6 (5-19); Blood Urea Nitrogen 11 mg/dL (8-23); Calcium 8.8 mg/dL (8.5-10.5); Carbon Dioxide 23 mmol/L (22-29); Chloride 105 mmol/L (98-107); Glucose 91 mg/dL (65-115); Osmolality Calculated 291 mOsm/kg (285-295); Potassium 3.6 mmol/L (3.5-5.1); Sodium 141 mmol/L (136-145)
[2023-02-08 09:00] LABS: Absolute Neutrophil 5.6 10^3/cmm (1.4-6.5); Absolute Segmented Neutrophil 5.6 10/cmm (1.6-7.1); Eosinophils 1 %; Lymphocytes 17 %; Lymphocytes Absolute 1.2 10^3/cmm (1.2-3.4); Monocytes Absolute 0.3 10^3/cmm (0.1-0.6); Platelet Estimate Increased (Normal); Segmented Neutrophils 78 %; Total Cells Counted 100 (0-100)
--- NOTE | 2023-02-08 09:02 | PC.SOCIAL ---
IMM update IMM updated with patient. Copy of page 2 provided. Verbalized understanding. Initialed/dated/timed copy in pt chart.
--- NOTE | 2023-02-08 09:59 | P.DS_ITS ---
Discharge Providers Date of Admission: 01/30/23 17:42 Date of Discharge: February 08, 2023 Attending Provider at Admission: Pollo Barcenas MD Attending Provider at Discharge: Roger Walsh MD Primary Care Provider: Annel Gill Diagnoses at Discharge Discharge Diagnosis (1) Sepsis: Status: Acute (2) Pyelonephritis: Status: Acute (3) CAD (coronary artery disease): Status: Acute (4) Diabetes mellitus: Status: Acute (5) Hypertension: Status: Acute Qualifiers: Hypertension type: essential hypertension Qualified Code(s): I10 - Essential (primary) hypertension (6) Heart failure with preserved ejection fraction: Status: Acute (7) Anemia: Status: Acute (8) Diarrhea: Status: Acute (9) Elevated troponin: Status: Acute Reason for Visit Reason for Visit: N/V; ABD PAIN Hospital Course Hospital Course 77yo F with Hx of HFpEF, CAD with 2 stents (2018) on DAPT, HTN, HLD,? GERD, OA and possible DM2 presented to ED with worsenig abdominal pain. Onset of symptoms 3dpta. Describes abd pain associated with persistent nonbloody emesis and diarrhea.No improvement with PO zofran. She was initially admitted for the management of sepsis secondary to possibly UTI/pyelonephritis, she was kept on broad-spectrum antibiotics, urine culture grew E. coli pansensitive, she received total 9 days of IV antibiotics, during the hospital stay she was also managed for NSTEMI, s/p PTCA to LCx for severe ostial left circumflex artery stenosis confirmed with iFR value of 0.61. Patient was continued on aspirin and Plavix.Patient was also managed for anemia, had EGD done as outpatient recently which showed gastritis, during this hospital stay Colonoscopy was planned but was later aborted due to, NSTEMI, , FOBT was negative ,patient was tolerating dual antiplatelet agent at the time of discharge H&H was stable, though she received 1 unit PRBC during the hospital stay, patient has also been discharged on Protonix 40 p.o. twice daily with meals. Patient was also managed for ZAK on CKD likely prerenal secondary dehydration improved with IV hydration, CT abdomen and pelvis without contrast failed to show any obstructive uropathy. For her history of hypertension, to achieve better blood pressure control she sherman s been started on amlodipine 10 mg p.o. daily, overall she responded well to above medical management and was discharged in stable condition to home, she will continue to follow her PCP as well as cardiology as outpatient. Physical Exam HENMT: COMMON NORMALS: normocephalic and atraumatic HEAD & SCALP: normocephalic and atraumatic Resp: COMMON NORMALS: clear to auscultation bilaterally AUSCULTATION: clear to auscultation bilaterally Cardio: COMMON NORMALS: regular rate, regular rhythm, S1 normal heart sound present, S2 normal heart sound present, No gallops present (Cardio), No murmurs present (Cardio), No rub (Cardio) and Peripheral pulses 2+ throughout RATE: regular rate RHYTHM: regular rhythm HEART SOUNDS: S1 normal heart sound present and S2 normal heart sound present PERIPHERAL PULSES: Peripheral pulses 2+ throughout GI: COMMON NORMALS: Normal to inspection, nondistended, normoactive bowel sounds present, Soft to palpation, non-tender, No hepatosplenomegaly present and no masses AUSCULTATION: Yes normoactive bowel sounds PALPATION: Yes Soft to palpation and Yes No hepatosplenomegaly present RECTAL EXAM: deferred Extremity: COMMON NORMALS: no clubbing, cyanosis or edema and no pedal edema Discharge Data Studies Completed and Pending Completed Studies During Hospitalization Category Date Time Status CT abdomen pelvis wo con [id number] Stat Cat Scan 01/30/23 15:39 Completed Cardiac Stress Test MIBI [Sestamibi Stress Test Request Exams 02/01/23 13:27 Draft ] Routine XR chest 1V portable [id number] Stat Exams 01/30/23 15:39 Completed NM luis miguel perf SPECT r/s* [id number] Routine Nuc Med 02/02/23 13:27 Completed CV. echo complete* [id number] Routine Ultrasound 01/31/23 12:16 Completed Pending at discharge Category Date Time Status [employer] request for service Routine Exams 02/07/23 09:03 Taken C DIFF [Clostridioides Difficile PCR] Routine Lab 01/31/23 16:39 Uncollected Enteric Bacterial Panel by PCR Routine Lab 01/31/23 16:39 Uncollected Enteric Parasite Panel by PCR Routine Lab 01/31/23 16:39 Uncollected Occult Blood Stool [Immunochemical Fecal OCB] Routine Lab 01/31/23 16:45 Uncollected Radiology Impressions Abdomen/Pelvis CT 01/30/23 15:39 IMPRESSION: 1. No acute findings within the abdomen or pelvis. 2. 5.5 x 3.0 cm right ovarian cyst developed from previous exam. In view of patient's age would recommend follow-up nonemergent pelvic ultrasound for further evaluation. 3. Interval development of bilateral perinephric fluid/fat stranding likely secondary to chronic kidney disease. Chest X-Ray 01/30/23 15:39 IMPRESSION: No acute findings. Laboratory Results WBC 7.2 10^3/uL (4.0-10.0) 02/08/23 08:04 RBC 4.30 10^6/uL (4.1-5.3) 02/08/23 08:04 Hgb 10.3 g/dL (11.5-15.3) L 02/08/23 08:04 Hct 34.0 % (37.0-47.0) L 02/08/23 08:04 MCV 79.1 fl (81-99) L 02/08/23 08:04 MCH 24.0 pg (28.0-34.0) L 02/08/23 08:04 MCHC 30.3 g/dL (30.0-36.0) 02/08/23 08:04 RDW 17.8 % (12.1-15.1) H 02/08/23 08:04 Plt Count 468 10^3/cmm (130-400) H 02/08/23 08:04 MPV 7.9 fL (7.4-10.4) 02/08/23 08:04 Neut % (Auto) 74.8 % 02/07/23 04:23 Lymph % (Auto) 16.4 % 02/07/23 04:23 [place] % (Auto) 5.6 % 02/07/23 04:23 Eos % (Auto) 1.0 % 02/07/23 04:23 Baso % (Auto) 0.9 % 02/07/23 04:23 Neut # (Auto) 6.84 10^3/uL (1.8-7.7) 02/07/23 04:23 Lymph # (Auto) 1.5 10^3/uL (0.8-4.8) 02/07/23 04:23 [place] # (Auto) 0.5 10^3/uL (0.2-0.9) 02/07/23 04:23 Eos # (Auto) 0.1 10^3/uL (0.0-0.8) 02/07/23 04:23 Baso # (Auto) 0.1 10^3/uL (0.0-0.1) 02/07/23 04:23 Nucleated RBC % (auto) 0 % 02/07/23 04:23 Total Counted 100 (0-100) 02/08/23 08:04 Atypical Lymphs % 0.0 % (0-5) 02/08/23 08:04 Absolute Neutrophils 5.6 10^3/cmm (1.4-6.5) 02/08/23 08:04 Segmented Neutrophils 78 % 02/08/23 08:04 Abs Segm Neuts (Man) 5.6 10/cmm (1.6-7.1) 02/08/23 08:04 Band Neutrophils 0.0 % 02/08/23 08:04 Abs Band Neuts (Man) 0.0 10^3/cmm (0.0-1.2) 02/08/23 08:04 Absolute Lymphocytes 1.2 10^3/cmm (1.2-3.4) 02/08/23 08:04 Lymphocytes (Manual) 17 % 02/08/23 08:04 Monocytes (Manual) 4.0 % 02/08/23 08:04 Absolute Monocytes 0.3 10^3/cmm (0.1-0.6) 02/08/23 08:04 Eosinophils (Manual) 1 % 02/08/23 08:04 Absolute Eosinophils 0.0 10^3/cmm (0.0-0.7) 02/08/23 08:04 Basophils (Manual) 0.0 % 02/08/23 08:04 Absolute Basophils 0.0 10^3/cmm (0.0-0.2) 02/08/23 08:04 Nucleated RBCs # 0.0 /100WBC 02/07/23 04:23 Platelet Estimate Increased (Normal) H 02/08/23 08:04 Sodium 141 mmol/L (136-145) 02/08/23 08:04 Potassium 3.6 mmol/L (3.5-5.1) 02/08/23 08:04 Chloride 105 mmol/L (98-107) 02/08/23 08:04 Carbon Dioxide 23 mmol/L (22-29) 02/08/23 08:04 Anion Gap 16.6 (5-19) 02/08/23 08:04 BUN 11 mg/dL (8-23) 02/08/23 08:04 Creatinine 0.9 mg/dL (0.5-0.9) 02/08/23 08:04 GFR Calculation Not Reportable 02/08/23 08:04 Glucose 91 mg/dL (65-115) 02/08/23 08:04 POC Glucose 125 mg/dL (70-110) H 01/31/23 06:31 Estimat Average Glucose 120 01/31/23 00:58 Hemoglobin A1c 5.8 % (4.0-6.0) 01/31/23 00:58 Calculated Osmolality 291 mOsm/kg (285-295) 02/08/23 08:04 Lactic Acid 1.7 mmol/L (0.5-2.2) 01/30/23 15:41 Calcium 8.8 mg/dL (8.5-10.5) 02/08/23 08:04 Phosphorus 3.7 mg/dL (2.5-4.5) 02/07/23 04:23 Magnesium 2.2 mg/dL (1.7-2.3) 02/07/23 04:23 Iron 10 ug/dL (37-145) L 01/31/23 00:58 TIBC 186 mcg/dl 01/31/23 00:58 % Saturation 5.3 % (20-50) L 01/31/23 00:58 Unsat Iron Binding 176 ug/dL (112-347) 01/31/23 00:58 Ferritin 163 ng/mL (15-150) H 01/31/23 00:58 Total Bilirubin 0.2 mg/dL (0.15-1.2) 02/04/23 03:41 AST 23 U/L (0-32) 02/04/23 03:41 ALT 17 U/L (0-33) 02/04/23 03:41 Alkaline Phosphatase 112 U/L (35-105) H 02/04/23 03:41 Troponin T Baseline 134 ng/L (0-10) H* 01/30/23 15:41 Troponin T 120 Minute 122.1 ng/L (0-10) H 01/30/23 17:45 Delta Troponin T -11.9 ABS# (0-10) L 01/30/23 17:45 Troponin T Hi Sens 6Hr 135.6 ng/L (0-10) H 01/31/23 00:58 Troponin T Hi Sens 6Hr Delta 1.6 ng/L (0-12) 01/31/23 00:58 NT-Pro-B Natriuret Pep 5063 pg/mL (0-450) H 01/31/23 00:58 Total Protein 6.3 g/dL (6.6-8.7) L 02/04/23 03:41 Albumin 2.6 g/dL (3.5-5.2) L 02/07/23 04:23 Globulin 3.8 g/dL (1.3-4.6) 02/04/23 03:41 Lipase 18 U/L (13-60) 01/30/23 15:41 Procalcitonin 50.43 ng/mL (0-0.5) H 01/30/23 15:41 TSH 0.35 uIU/mL (0.27-4.20) 02/01/23 03:25 Urine Color Yellow (Yellow) 01/30/23 16:05 Urine Appearance Sl hazy (CLEAR) A 01/30/23 16:05 Urine pH 6.5 (5-7) 01/30/23 16:05 Ur Specific [place] 1.005 (1.005-1.030) 01/30/23 16:05 Urine Protein 3+ (Negative) H 01/30/23 16:05 Urine Glucose (UA) Norm (Normal) 01/30/23 16:05 Urine Ketones 1+ (Negative) H 01/30/23 16:05 Urine Blood 3+ (Negative) H 01/30/23 16:05 Urine Nitrate Positive (Negative) H 01/30/23 16:05 Urine Bilirubin Neg (Negative) 01/30/23 16:05 Urine Urobilinogen Norm mg/dL (Negative) 01/30/23 16:05 Ur Leukocyte Esterase 2+ (Negative) H 01/30/23 16:05 Urine RBC 0-4 /hpf (0-2) H 01/30/23 16:05 Urine WBC Too numerous to cnt /hpf (0-5) H 01/30/23 16:05 Ur Squamous Epith Cells Rare /hpf (0-5) 01/30/23 16:05 Amorphous Sediment Not Reportable 01/30/23 16:05 Urine Bacteria 2+ /hpf (NONE) H 01/30/23 16:05 Blood Type A Positive 02/04/23 09:40 Rho(D) Type Positive 02/04/23 09:40 Antibody Screen Negative 02/04/23 09:40 Crossmatch See Detail 02/04/23 09:40 Vitals Last Vital Signs Temp 98.2 F 02/07/23 07:35 Pulse 76 02/08/23 07:49 Resp 19 H 02/08/23 07:49 BP 175/78 02/08/23 07:49 Pulse Ox 97 02/08/23 07:49 O2 Del Method Room Air 02/08/23 07:49 Discharge Plan Discharge Patient Disposition: Home Health Service Condition: Stable Prescriptions: New Plavix 75 mg tablet 75 mg PO DAILY Qty: 30 3RF amlodipine 10 mg Tablet 10 mg PO DAILY 30 Days Qty: 30 3RF levofloxacin 750 mg tablet 750 mg PO DAILY 7 Days Qty: 7 0RF Continued cyclobenzaprine 5 mg tablet 5 mg PO TID PRN (Reason: Muscle Spasm) potassium chloride [Klor-Con M20] 20 mEq tablet,ER particles/crystals 20 meq PO DAILY Qty: 30 0RF Rx Instructions: Take while taking furosemide 80mg daily, when dose reduced may resume OTC potassium. rosuvastatin 20 mg tablet 20 mg PO DAILY Qty: 90 3RF furosemide 40 mg tablet 40 mg PO DAILY Qty: 90 3RF nitroglycerin [Nitrostat] 0.4 mg tablet, sublingual 0.4 mg sublingual Q5M PRN (Reason: chest pain) Qty: 25 1RF Rx Instructions: do not exceed 3 doses per episode sertraline 100 mg tablet 100 mg PO DAILY gabapentin 300 mg capsule 300 mg PO DAILY Vitamin B-12 1 tab PO DAILY ondansetron HCl 8 mg Tablet 8 mg PO Q8H PRN (Reason: Nausea) sucralfate 1 gram Tablet 1 g PO DAILY isosorbide mononitrate 30 mg Tablet Extended Release 24 Hr 30 mg PO DAILY metoprolol tartrate 25 mg Tablet 12.5 mg PO DAILY aspirin 81 mg Tablet,Delayed Release (Dr/Ec) 81 mg PO DAILY calcium carbonate 500 mg calcium (1,250 mg) Tablet 500 mg PO DAILY Changed pantoprazole 40 mg Tablet,Delayed Release (Dr/Ec) 40 mg PO BIDWMEAL 30 Days Qty: 60 3RF Discharge Orders: Discharge Order (Routine); Ordered 02/08/23 Ordered By: Roger Walsh Other Ambulatory Orders: DME: Reji (Order) Location: None Selected Ordered By: Keyanna Quinn Referrals: [facility] ([facility]) [Outside] Marzena Tate FNP [Nurse Practitioner] - 02/23/23 10:00 am (Please follow-up with Marzena Tate on Tuesday, February 23 at 10:00A.M. If you have any questions or need to reschedule. Please call ) Annel Gill PA [Primary Care Provider] - 02/08/23 10:45 am Patient Instructions: Amlodipine (By mouth), Clopidogrel (By mouth) (Plavix), Coronary Angioplasty (DC), DASH Eating Plan (DC), Anemia (DC), CHF Stoplight, GI Discharge Instructions, Opioid Safety, Post Angiogram Home Care Instructions Discharge Attestations Time Spent in Discharge Care*: less than 30 min Quality Metrics Clinical Quality Measures [ No reported AMI, CVA or VTE this stay] Coding Level of Care Code Acute Code for Chg Fwd Diagnoses Sepsis A41.9 Pyelonephritis N12 CAD (coronary artery disease) I25.10 Diabetes mellitus E11.9 Hypertension I10 Hypertension type: essential hypertension Heart failure with preserved ejection fraction I50.30 Anemia D64.9 Diarrhea R19.7 Elevated troponin R77.8
[2023-02-08 11:33] VITALS: BP 111/58; PULSE 69; RESP 15; O2SAT 97
== END 2023-02-08 12:13 | disposition home health service (06) | DRG 853 ==
LOC: ER 17:42 → MEDSURG 18:01 → CSU 02-07 10:49
PROVIDERS: Internal Medicine; Physician Assistant; Student in an Organized Health Care Education/Training Program; Admitting Provider Family Medicine; Emergency Provider Emergency Medicine; PCP Physician Assistant; Visit Provider Internal Medicine
PROC: 02703ZZ Dilation of Coronary Artery, One Artery, Percutaneous Approach (ICD-10-PCS; principal; 2023-02-07 10:30)
PROC: 02703ZZ Dilation of Coronary Artery, One Artery, Percutaneous Approach (ICD-10-PCS; 2023-02-07 10:30)
DX: A41.51 Sepsis due to Escherichia coli [E. coli] (principal); I21.4 Non-ST elevation (NSTEMI) myocardial infarction; I13.0 Hypertensive heart and chronic kidney disease with heart failure and stage 1 through stage 4 chronic kidney disease, or unspecified chronic kidney disease; N12 Tubulo-interstitial nephritis, not specified as acute or chronic; I50.32 Chronic diastolic (congestive) heart failure; N17.9 Acute kidney failure, unspecified; N18.9 Chronic kidney disease, unspecified; E11.22 Type 2 diabetes mellitus with diabetic chronic kidney disease; I25.10 Atherosclerotic heart disease of native coronary artery without angina pectoris; Z95.5 Presence of coronary angioplasty implant and graft; E78.5 Hyperlipidemia, unspecified; K21.9 Gastro-esophageal reflux disease without esophagitis; D50.9 Iron deficiency anemia, unspecified; D63.1 Anemia in chronic kidney disease; K29.70 Gastritis, unspecified, without bleeding; R19.7 Diarrhea, unspecified; E87.6 Hypokalemia; Z87.11 Personal history of peptic ulcer disease; Z79.82 Long term (current) use of aspirin; E86.0 Dehydration
CPT/HCPCS: 36415; 36416; 51701; 71045; 74176; 78452; 80048; 80053; 80069; 81001; 82728; 82962; 83036; 83540; 83550; 83605; 83690; 83735; 83880; 84100; 84145; 84443; 84484; 85007; 85014; 85018; 85025; 85027; 85347; 86850; 86900; 86920; 87040; 87077; 87086; 87150; 87186; 87205; 92920; 93005; 93017; 93306; 93454; 93571; 96365; 96372; 96375; 96376; 99152; 99153; 99285; A9500; C1725; C1760; C1769; C1887; C1894; C9113; J0360; J0692; J0696; J1644; J1650; J2250; J2270; J2405; J2550; J2765; J2785; J3010; J3370; J3480; J3490; J7030; J7050; J7120; P9016; Q9967

== ENCOUNTER → 2023-02-23 09:45 | Outpatient (BNVA) | payer MEDICARE, MEDICAID, SELFPAY | PROVIDERS: PCP Physician Assistant; Visit Provider Nurse Practitioner Family | DX: I25.10 Atherosclerotic heart disease of native coronary artery without angina pectoris (principal); I11.0 Hypertensive heart disease with heart failure; I50.30 Unspecified diastolic (congestive) heart failure | CPT/HCPCS: 99213 ==

== ENCOUNTER → 2023-04-18 13:20 | Outpatient (BNVA) | payer MEDICARE, MEDICAID, SELFPAY | PROVIDERS: PCP Nurse Practitioner Family; Visit Provider Nurse Practitioner Family | DX: I25.10 Atherosclerotic heart disease of native coronary artery without angina pectoris (principal); I13.0 Hypertensive heart and chronic kidney disease with heart failure and stage 1 through stage 4 chronic kidney disease, or unspecified chronic kidney disease; I50.30 Unspecified diastolic (congestive) heart failure; N18.9 Chronic kidney disease, unspecified; E11.22 Type 2 diabetes mellitus with diabetic chronic kidney disease; Z79.84 Long term (current) use of oral hypoglycemic drugs | CPT/HCPCS: 99214 ==

== ENCOUNTER 2023-05-25 15:06 | Emergency (ER) | payer MEDICARE, MEDICAID, SELFPAY ==
[2023-05-25 15:13] VITALS: BP 149/79; PULSE 60; RESP 17; TEMP 37; O2SAT 100; BMI 24.4
--- NOTE | 2023-05-25 15:15 | ED_ITS ---
HPI - Animal Bite General: Chief Complaint: Animal Bite Stated Complaint: dog bite Time Seen by Provider: 05/25/23 15:09 Source: patient and family Mode of arrival: wheelchair Limitations: no limitations History of Present Illness: Patient is a very nice 77-year-old female presents to ED today along with her significant other for evaluation of a dog bite. 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 He states earlier today while patient was checking the mail one of the stray dogs bit her right leg. Last tetanus was 2 years ago. complaint: animal bite Onset (ago): hour(s) Animal: dog Description of animal: immunizations unknown and appeared well Mechanism: bite Location - Extremities: Right: knee Context: unprovoked Associated symptoms: Reports no associated symptoms; Deny chills or fever(s) Treatments prior to arrival: wound dressing(s) Related Data: Patient tetanus UTD: Yes Review of Systems Const: Denies: fever(s), chills, body aches, fatigue or malaise Card: Denies: chest pain Resp: Denies: dyspnea Musc: Reports: extremity pain (at site of dog bites) and extremity swelling (localized swelling); Denies: neck pain, back pain, joint pain, joint swelling, joint redness, joint warmth or limited range of motion Skin/Breast: Reports: other (multiple puncture wounds/dog bites to R medial leg/knee) Neuro: Denies: numbness in extremities, weakness in extremities or sensory changes [facility] ED PFSH: Medical History Anemia CAD (coronary artery disease) Chest pain Diabetes mellitus Diarrhea Elevated troponin Heart failure Heart failure with preserved ejection fraction HLD (hyperlipidemia) Hypertension Peptic ulcer disease Pyelonephritis Renal failure Sepsis Surgical History H/O: hysterectomy History of coronary artery stent placement History of percutaneous coronary intervention Social History Smoking and tobacco status: never smoked Household members: spouse Marital status: Physical Exam Const: COMMON NORMALS: no acute distress, patient oriented x3, no limitations, alert and well nourished Extremity: COMMON NORMALS: full ROM, capillary refill normal, no joint enlargement, no clubbing, cyanosis or edema, no calf tenderness and no pedal edema GENERAL: Yes normal exam except as noted RIGHT LOWER EXTREMITY: Yes knee joint OTHER: Patient has multiple puncture evans to the medial aspect of her right knee. Most of these appear fairly superficial and are about 0.5cm in length; there is one larger 1.25cm one that will probably require closure; will leave the rest open; there is surrounding edema/ecchymosis; no erythema/warmth/streaking; no concern for joint capsule puncture Neuro: COMMON NORMALS: patient oriented x3, moves all extremities, no focal motor deficits and no sensory deficits noted SENSORIUM/ORIENTATION: Yes alert Skin: NARRATIVE SKIN EXAM: see above Procedures Laceration Laceration 1: Site: lower extremity Side (If applicable): right Size (cm): 1.5 Description: irregular Depth: simple, single layer Local Anesthetic: lidocaine 2% Amount of anesthesia used (mL): 2.0 Pre-repair: wound explored and irrigated extensively Skin layer closed with: nylon Size (cm): 4-0 Number of sutures: 2 Technique: simple, interrupted Course Vital Signs: Vital signs: Vital Signs Temperature 98.6 F 05/25/23 15:13 Pulse Rate 60 05/25/23 15:13 Respiratory Rate 17 05/25/23 15:13 Blood Pressure 149/79 05/25/23 15:13 Pulse Oximetry 100 05/25/23 15:13 MDM - Animal Bite Medical Decision Making Soft tissue injury noted on XR. No foreign body or bony involvement. Wounds were copiously irrigated. One wound was repaired and the remainder will be left open to decrease her risk of infection. She was given Rocephin/Flagyl here and will be placed on Augmentin. Rabies PEP was initiated. She was given schedule for remainder of her vaccinations through the infusion center. Strict return to ED precautions given. All radiology interpretation(s) finalized by discharge Discharge Plan Discharge Patient Disposition: Home Clinical Impression: Dog bite Qualifiers: Encounter type: initial encounter Qualified Code(s): W54.0XXA - Bitten by dog, initial encounter Condition: Stable Prescriptions: New amoxicillin-pot clavulanate 875-125 mg tablet 1 tab PO BID Qty: 14 0RF No Action cyclobenzaprine 5 mg tablet 5 mg PO TID PRN (Reason: Muscle Spasm) rosuvastatin 20 mg tablet 20 mg PO DAILY Qty: 90 3RF furosemide 40 mg tablet 40 mg PO DAILY Qty: 90 3RF nitroglycerin [Nitrostat] 0.4 mg tablet, sublingual 0.4 mg sublingual Q5M PRN (Reason: chest pain) Qty: 25 1RF Rx Instructions: do not exceed 3 doses per episode sertraline 100 mg tablet 100 mg PO DAILY ondansetron HCl 8 mg Tablet 8 mg PO BID PRN (Reason: Nausea) sucralfate 1 gram Tablet 1 g PO BID isosorbide mononitrate 30 mg Tablet Extended Release 24 Hr 15 mg PO BID metoprolol tartrate 25 mg Tablet 12.5 mg PO BID aspirin 81 mg Tablet,Delayed Release (Dr/Ec) 81 mg PO DAILY calcium carbonate 500 mg calcium (1,250 mg) Tablet 500 mg PO DAILY clopidogrel [Plavix] 75 mg tablet 75 mg PO DAILY Qty: 30 3RF Vitamin B-12 1,000 mcg Tablet 1,000 mcg PO DAILY Tylenol Ex Str Rapid Release 500 mg Tablet 1,000 mg PO Q6H PRN (Reason: Pain) promethazine 25 mg tablet 25 mg PO Q8H PRN (Reason: Nausea And Vomiting) Discharge Orders: Discharge ED (Routine); Ordered 05/25/23 Ordered By: Belgica Helms Referrals: Connie Barrera FNP [Primary Care Provider] - Patient Instructions: Rabies Vaccine (By injection), Rabies Immune Globulin (By injection), Animal Bite (ED) Activity Restrictions/Additional Instructions: As we discussed you have been given an antibiotic pill to take this evening as your pharmacy will be closed at time of discharge. Please fill your prescription tomorrow morning and begin taking as directed. As we discussed please monitor wounds closely for infection such as redness, swelling, purulent drainage, odor, red streaking up your leg, fevers, or any other concerns you may have. We left the majority of the puncture wounds open to help facilitate drainage and lessen her risk of infection. Rabies postexposure prophylaxis has been initiated. As we discussed the remainder of the shots should be completed through our infusion center. You have been given a schedule of future shots. We have faxed schedule over to the infusion center and they should reach out to you in regards to dates/times of these appointments. If you have any questions or have not heard from them please recheck here in the emergency department for further instructions. Coding Level of Care Code ED Income Tax Return Preparer for Marlene Brewster
--- NOTE | 2023-05-25 15:29 | XR_ITS ---
WS: [id number] EXAMINATION: XR knee RT 3V* [id number] REASON FOR EXAM: dog bites COMPARISON: None available. ORDER DATE: 05/25/2023 3:31 PM FINDINGS: There are marginal osteophytes associated with the tibial spines, patella and other articular margins with medial and patellofemoral compartment narrowing. There is no sign of any acute fracture or disl ocation. A small joint effusion cannot be excluded but there is no evidence of any large effusion. Th ere is a small intra-articular ossicle. IMPRESSION: MEDIAL AND PATELLOFEMORAL COMPARTMENT NARROWING WITH OSTEOARTHRITIC CHANGES.
--- NOTE | 2023-05-25 15:55 | PC.PHAR ---
Addendum entered by Leny Horvath 05/25/23 16:09: nurse maria elena vera [phone] called and verified pts medications-states the pts amlodipine 10mg daily (filled 05/02/23 30d/s)-gabapentin 300mg daily (filled 05/02/23 30d/s) and pantoprazole 40mg bid (filled 05/02/23 30d/s) was dced by a in [place]-states the pt takes care of her own otc meds Original Note: pt has [facility] [phone] per shanti from [facility] [place] states she will have the home health nurse call to give med list
[2023-05-25] MEDS: amoxicillin-clav 875-125 mg Tablet 1 TAB PO (16:18)
[2023-05-25] MEDS: metroNIDAZOLE 500 MG Tablet PO (16:18)
[2023-05-25] MEDS: rabies vaccine 2.5 unit SDV IM (16:19)
[2023-05-25] MEDS: rabies IG 300 unit/mL SDV 1 mL 1100 UNIT INFILTRATI (16:22)
[2023-05-25] MEDS: cefTRIAXone 1,000 MG in water for injection-sterile 2.1 ML 1 MG IM (16:31)
--- NOTE | 2023-05-25 16:43 | PC.NURSE ---
PT GIVEN ALL SHOTS AT 1640. PT BEGAN FEELING NAUSEOUS AND ANXIOUS. PT WAS OFFERED NAUSEA MEDS AND DECLINED, STATES SHE STARTED FEELING BETTER. FAMILY CAME OUT AND STATES THAT SHE IS THROWING UP AGAIN AND WANTS PO NAUSEA MED. PA WAS NTFD AND SHE IS PLACING ORDER FOR MEDS. PT VITALS ASSESSED CHARTED AND PA NTFD.
[2023-05-25 16:48] VITALS: BP 159/50; PULSE 54; RESP 16; O2SAT 100
[2023-05-25] MEDS: ondansetron 4 MG Tablet PO (16:48)
== END 2023-05-25 18:41 | disposition home or self-care (01) ==
PROVIDERS: Emergency Provider Physician Assistant; PCP Nurse Practitioner Family
DX: S81.851A Open bite, right lower leg, initial encounter (principal); W54.0XXA Bitten by dog, initial encounter; Z79.02 Long term (current) use of antithrombotics/antiplatelets; Z79.82 Long term (current) use of aspirin; I25.10 Atherosclerotic heart disease of native coronary artery without angina pectoris; E11.9 Type 2 diabetes mellitus without complications; I11.0 Hypertensive heart disease with heart failure; I50.9 Heart failure, unspecified; E78.5 Hyperlipidemia, unspecified; Z29.14 Encounter for prophylactic rabies immune globulin; Z20.3 Contact with and (suspected) exposure to rabies; Z23 Encounter for immunization
CPT/HCPCS: 12001; 73562; 90375; 90471; 90675; 96372; 99284; J0696; Q0162

== ENCOUNTER 2023-05-28 08:49 | Emergency (ER) | payer MEDICARE, MEDICAID, SELFPAY ==
--- NOTE | 2023-05-28 08:56 | PC.PHAR ---
PT WAS SEEN ON 05/25/23 IN THE ER-MED REC WAS UPDATED 05/25/23 THIS NOTE WAS MADE ON 05/25/23- nurse maria elena vera [phone] called and verified pts medications-states the pts amlodipine 10mg daily (filled 05/02/23 30d/s)-gabapentin 300mg daily (filled 05/02/23 30d/s) and pantoprazole 40mg bid (filled 05/02/23 30d/s) was [place]-states the pt takes care of her own otc meds MEDICATIONS ENTERED ARE MEDS FROM 05/25/23 VISIT-THE HOME HEALTH IS NOT OPEN ON SATURDAYS TO GET MED LIST AGAIN
[2023-05-28 09:05] VITALS: BP 159/81; PULSE 64; RESP 16; TEMP 36.6; O2SAT 99
--- NOTE | 2023-05-28 09:07 | ED_ITS ---
HPI - General Adult General: Chief complaint: Animal Bite Stated complaint: second rabies shot Time Seen by Provider: 05/28/23 08:50 History of Present Illness: Patricia Benito returns to the emergency department today for rabies vaccine. Last seen on 05/25/23 (day 0) Patient is a very nice 77-year-old female presents to ED today along with her significant other for evaluation of a dog bite.? 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 He states earlier today while patient was checking the mail one of the stray dogs bit her right leg.? Last tetanus was 2 years ago. Review of Systems Narrative: Patient reports dog bite on Tuesday. Healing wound. Patient denies any fever chills, chest pain shortness of breath, abdominal pain/nausea vomiting/diarrhea or constipation, denies any other complaints [facility] ED PFSH: Medical History Anemia CAD (coronary artery disease) Chest pain Diabetes mellitus Diarrhea Elevated troponin Heart failure Heart failure with preserved ejection fraction HLD (hyperlipidemia) Hypertension Peptic ulcer disease Pyelonephritis Renal failure Sepsis Surgical History H/O: hysterectomy History of coronary artery stent placement History of percutaneous coronary intervention Social History Smoking and tobacco status: never smoked Household members: spouse Marital status: Physical Exam Const: COMMON NORMALS: no acute distress, patient oriented x3 and alert GENERAL APPEARANCE: cooperative ORIENTATION/CONSCIOUSNESS: Yes awake, Yes oriented to person, Yes oriented to place and Yes oriented to time HENMT: COMMON NORMALS: normocephalic and atraumatic HEAD & SCALP: normocephalic and atraumatic FACE & SINUS: normal facial exam MOUTH: Normal oral and palatal mucosa present THROAT: posterior oropharynx normal Neck/C-Spine: COMMON NORMALS: full ROM GENERAL: Yes normal visual inspection Lymph: LYMPHATIC: no lymphadenopathy noted Chest: COMMONS NORMALS: normal inspection of the chest Breast/axilla inspection: Yes no chest deformity, asymmetry, normal contours, no nodules, masses, tenderness Resp: COMMON NORMALS: normal respiratory effort, No retractions and No use of accessory muscles EFFORT & INSPECTION: Yes able to speak in complete sentences and Yes symmetric chest movement Cardio: COMMON NORMALS: regular rate, regular rhythm and Peripheral pulses 2+ throughout RATE: regular rate RHYTHM: regular rhythm PERIPHERAL PULSES: Peripheral pulses 2+ throughout GI: COMMON NORMALS: Normal to inspection, nondistended, normoactive bowel sounds present, non-tender and No hepatosplenomegaly present INSPECTION: Yes normal to inspection PALPATION: Yes No hepatosplenomegaly present RECTAL EXAM: deferred Extremity: COMMON NORMALS: normal to inspection GENERAL: Yes normal exam except as noted Neuro: COMMON NORMALS: patient oriented x3 SENSORIUM/ORIENTATION: Yes alert, Yes oriented to person, Yes oriented to place and Yes oriented to time CRANIAL NERVES: Yes CN normal except as noted Psych: COMMON NORMALS: mental status grossly normal, Normal thought process present, cooperative, activity/motor behavior normal, denies homicidal ideation and denies suicidal ideation THOUGHT PROCESS: Normal thought process present Skin: COMMON NORMALS: no rashes or lesions noted, no wounds and turgor normal GENERAL SKIN EXAM: no rashes or lesions noted and turgor normal Course Vital Signs: Vital signs: Vital Signs Temperature 97.9 F 05/28/23 09:05 Pulse Rate 64 05/28/23 09:05 Respiratory Rate 16 05/28/23 09:05 Blood Pressure 159/81 05/28/23 09:05 Pulse Oximetry 99 05/28/23 09:05 Oxygen Delivery Me thod Room Air 05/28/23 09:05 [facility] - General Adult Medical Decision Making Presents for rabies vaccine. Day 3 in the rabies postexposure prophylaxis. Next doses?day 7, day 14 No radiology studies performed this visit Discharge Plan Discharge Patient Disposition: Home Clinical Impression: Rabies contact, Bite by animal Condition: Stable Prescriptions: No Action cyclobenzaprine 5 mg tablet 5 mg PO TID PRN (Reason: Muscle Spasm) rosuvastatin 20 mg tablet 20 mg PO DAILY Qty: 90 3RF furosemide 40 mg tablet 40 mg PO DAILY Qty: 90 3RF nitroglycerin [Nitrostat] 0.4 mg tablet, sublingual 0.4 mg sublingual Q5M PRN (Reason: chest pain) Qty: 25 1RF Rx Instructions: do not exceed 3 doses per episode sertraline 100 mg tablet 100 mg PO DAILY ondansetron HCl 8 mg Tablet 8 mg PO BID PRN (Reason: Nausea) sucralfate 1 gram Tablet 1 g PO BID isosorbide mononitrate 30 mg Tablet Extended Release 24 Hr 15 mg PO BID metoprolol tartrate 25 mg Tablet 12.5 mg PO BID aspirin 81 mg Tablet,Delayed Release (Dr/Ec) 81 mg PO DAILY calcium carbonate 500 mg calcium (1,250 mg) Tablet 500 mg PO DAILY clopidogrel [Plavix] 75 mg tablet 75 mg PO DAILY Qty: 30 3RF cyanocobalamin (vitamin B-12) [Vitamin B-12] 1,000 mcg Tablet 1,000 mcg PO DAILY acetaminophen [Tylenol Ex Str Rapid Release] 500 mg Tablet 1,000 mg PO Q6H PRN (Reason: Pain) promethazine 25 mg tablet 25 mg PO Q8H PRN (Reason: Nausea And Vomiting) amoxicillin-pot clavulanate 875-125 mg tablet 1 tab PO BID Qty: 14 0RF Discharge Orders: Discharge ED (Routine); Ordered 05/28/23 Ordered By: Binu Gastelum Referrals: Connie Barrera FNP [Primary Care Provider] - Discharge Diet: Advance as tolerated Discharge Activity: Resume usual activity Patient Instructions: Rabies Vaccine (By injection) (Imovax Rabies, RabAvert), Pain Management Activity Restrictions/Additional Instructions: Rabies vaccine is given on day 0, day 3, day 7, day 14. Your original injection was 05/25/2023. Today you are receiving a rabies vaccine. Your next rabies vaccine is due on 06/01/2023. The final vaccine will be given on 06/08/2023 Coding Level of Care Code ED Retail Sales Assistant for Marlene Brewster
[2023-05-28] MEDS: rabies vaccine 2.5 unit SDV IM (09:21)
== END 2023-05-28 09:33 | disposition home or self-care (01) ==
PROVIDERS: Emergency Provider Nurse Practitioner; PCP Nurse Practitioner Family
DX: Z29.14 Encounter for prophylactic rabies immune globulin (principal); Z20.3 Contact with and (suspected) exposure to rabies; Z23 Encounter for immunization; W54.0XXA Bitten by dog, initial encounter; Z79.02 Long term (current) use of antithrombotics/antiplatelets; Z79.82 Long term (current) use of aspirin; I25.10 Atherosclerotic heart disease of native coronary artery without angina pectoris; E11.9 Type 2 diabetes mellitus without complications; I11.0 Hypertensive heart disease with heart failure; I50.9 Heart failure, unspecified; E78.5 Hyperlipidemia, unspecified
CPT/HCPCS: 90471; 90675; 99283

== ENCOUNTER → 2023-06-06 14:32 | Outpatient (BNVA) | payer MEDICARE, MEDICAID, SELFPAY | PROVIDERS: PCP Nurse Practitioner Family; Visit Provider Internal Medicine Cardiovascular Disease | DX: R07.9 Chest pain, unspecified (principal); I25.10 Atherosclerotic heart disease of native coronary artery without angina pectoris; I11.0 Hypertensive heart disease with heart failure; I50.30 Unspecified diastolic (congestive) heart failure | CPT/HCPCS: 99214 ==

== ENCOUNTER 2023-06-07 08:30 | Oncology outpatient (recurring) (ONCR) | payer MEDICARE, MEDICAID, SELFPAY ==
[2023-06-01] MEDS: rabies vaccine 2.5 unit SDV IM (11:41)
== END 2023-06-21 23:59 | disposition home or self-care (01) ==
PROVIDERS: PCP Nurse Practitioner Family; Visit Provider Physician Assistant
DX: Z23 Encounter for immunization (principal)
CPT/HCPCS: 90471; 90675

== ENCOUNTER 2023-07-13 12:39 | Emergency (ER) | payer MEDICARE, MEDICAID, SELFPAY ==
[2023-07-13] VITALS (7 sets, daily range): BP systolic 163–196; BP diastolic 56–93; PULSE 69–98; RESP 16–18; TEMP 36.6; O2SAT 97–100; BMI 23.8
--- NOTE | 2023-07-13 12:40 | ECG_ITS ---
[facility] Test Date: 2023-07-13 Pat Name: Patricia Benito Department: Room: Gender: Female Final Assembly Inspector: : 1945 Requested By: Sorin Garber Order Number: [id number] Reading MD: Scarlett Singleton M.D. Measurements Intervals Walker Rate: 74 P: 13 ND: 136 QRS: 69 QRSD: 74 T: 15 QT: 396 QTc: 440 Interpretive Statements SINUS RHYTHM WITH OCCASIONAL SUPRAVENTRICULAR PREMATURE COMPLEXES NONSPECIFIC T-WAVE ABNORMALITY Compared to ECG 01/31/2023 05:57:52 No significant change Electronically Signed On 07-14-2023 13:18:55 MONOTYPIST by Scarlett Singleton M.D. [id number]
--- NOTE | 2023-07-13 12:46 | XRR_ITS ---
PROCEDURE INFORMATION: Exam: XR Chest Exam date and time: 07/13/2023 12:53 PM Age: 78 years old Clinical indication: Pain; Angina pectoris; Additional info: Cp TECHNIQUE: Imaging protocol: Radiologic exam of the chest. Views: 1 view. COMPARISON: CR XR chest 1V portable [id number] 01/30/2023 3:54 PM FINDINGS: Lungs: Unremarkable. No consolidation. Pleural spaces: Unremarkable. No pleural effusion. No pneumothorax. Heart/Mediastinum: Unremarkable. No cardiomegaly. 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 No acute findings. XR/XR chest 1V portable [id number] IMPRESSION: No acute findings.
--- NOTE | 2023-07-13 12:59 | W.ED.CHESTPA ---
HPI - Chest Pain General: Chief Complaint: Chest Pain Stated Complaint: chest pain Time Seen by Provider: 07/13/23 12:41 Source: patient Mode of arrival: EMS Limitations: no limitations History of Present Illness: 78-year-old female Tells me she has been having left-sided chest pain for the last 2 days.states been constant nature is a sharp pain she denies any worsening improving factors. Rates her pain a 4 out of 10 currently denies any shortness of breath. She denies any vomiting or diarrhea. Associated symptoms: Deny abdominal pain, dyspnea, fever(s), nausea or vomiting Review of Systems Const: Denies: fever(s), chills, body aches or change in appetite Eyes: Denies: blurry vision or eye discomfort ENMT: Denies: throat pain or dental pain Card: Reports: chest pain Resp: Denies: dyspnea GI: Denies: abdominal pain, nausea, vomiting or diarrhea : Denies: dysuria Musc: Denies: neck pain or back pain Skin/Breast: Denies: rash Neuro: Denies: headache(s) PFSH ED PFSH: Medical History Anemia CAD (coronary artery disease) Chest pain Diabetes mellitus Diarrhea Elevated troponin Heart failure Heart failure with preserved ejection fraction HLD (hyperlipidemia) Hypertension Peptic ulcer disease Pyelonephritis Renal failure Sepsis Surgical History H/O: hysterectomy History of coronary artery stent placement History of percutaneous coronary intervention Social History Smoking and tobacco/nicotine status: never used tobacco/nicotine Household members: spouse Marital status: Physical Exam Const: COMMON NORMALS: no acute distress, patient oriented x3 and healthy appearing HENMT: COMMON NORMALS: normocephalic and atraumatic HEAD & SCALP: normocephalic and atraumatic Eye: COMMON NORMALS: Equal, round and reactive pupils present and EOMs intact bilaterally PUPIL: Yes Equal, round and reactive pupils present Neck/C-Spine: COMMON NORMALS: full ROM and supple Chest: COMMONS NORMALS: normal inspection of the chest and normal palpation of entire chest wall Resp: COMMON NORMALS: normal respiratory effort, No retractions, No use of accessory muscles and clear to auscultation bilaterally AUSCULTATION: clear to auscultation bilaterally Cardio: COMMON NORMALS: regular rate, regular rhythm and No murmurs present (Cardio) RATE: regular rate RHYTHM: regular rhythm GI: COMMON NORMALS: Normal to inspection, nondistended, normoactive bowel sounds present, Soft to palpation, non-tender and no masses PALPATION: Yes Soft to palpation Extremity: COMMON NORMALS: normal to inspection and full ROM Neuro: COMMON NORMALS: patient oriented x3, moves all extremities and no focal motor deficits Psych: COMMON NORMALS: mental status grossly normal, Normal thought process present and cooperative THOUGHT PROCESS: Normal thought process present Skin: COMMON NORMALS: no rashes or lesions noted and no wounds GENERAL SKIN EXAM: no rashes or lesions noted Course Vital Signs: Vital signs: Vital Signs Temperature 97.9 F 07/13/23 12:43 Pulse Rate 75 07/13/23 14:30 Respiratory Rate 17 07/13/23 13:30 Blood Pressure 163/56 07/13/23 15:30 Pulse Oximetry 100 07/13/23 14:30 Oxygen Delivery Me thod Room Air 07/13/23 14:00 MDM - Chest Pain Medical Decision Making Patient presents here with chest pain is atypical in nature she is point tender on exam likely chest wall pain troponins here are negative no signs of acute coronary syndrome she has no signs of PE or dissection she is stable for discharge she is to follow-up with 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 Medical Records I reviewed the patient's medical records. Lab Data I reviewed the patient's lab results. 07/13/23 12:48 07/13/23 12:48 Radiology Impressions Chest X-Ray 07/13/23 12:46 IMPRESSION: No acute findings. Laboratory Results WBC 9.76 10^3/uL (3.29-11.43) 07/13/23 12:48 RBC 4.64 10^6/uL (3.85-5.65) 07/13/23 12:48 Hgb 11.90 g/dL (11.27-16.99) 07/13/23 12:48 Hct 39.5 % (36-47) 07/13/23 12:48 MCV 85.1 fl (85-98) 07/13/23 12:48 MCH 25.6 pg (27-33) L 07/13/23 12:48 MCHC 30.1 g/dL (30-55) 07/13/23 12:48 RDW 14.8 % (12.1-15.1) 07/13/23 12:48 Plt Count 329 10^3/cmm (157-399) 07/13/23 12:48 MPV 8.6 fL (7.4-10.4) 07/13/23 12:48 Neut % (Auto) 62.7 % 07/13/23 12:48 Lymph % (Auto) 27.5 % 07/13/23 12:48 [place] % (Auto) 7.5 % 07/13/23 12:48 Eos % (Auto) 1.2 % 07/13/23 12:48 Baso % (Auto) 1.0 % 07/13/23 12:48 Neut # (Auto) 6.12 10^3/uL (1.8-7.7) 07/13/23 12:48 Lymph # (Auto) 2.7 10^3/uL (0.8-4.8) 07/13/23 12:48 [place] # (Auto) 0.7 10^3/uL (0.2-0.9) 07/13/23 12:48 Eos # (Auto) 0.1 10^3/uL (0.0-0.8) 07/13/23 12:48 Baso # (Auto) 0.1 10^3/uL (0.0-0.1) 07/13/23 12:48 Nucleated RBC % (auto) 0 % 07/13/23 12:48 Nucleated RBCs # 0.0 /100WBC 07/13/23 12:48 Sodium 138 mmol/L (136-145) 07/13/23 12:48 Potassium 3.6 mmol/L (3.5-5.1) 07/13/23 12:48 Chloride 103 mmol/L (98-107) 07/13/23 12:48 Carbon Dioxide 19 mmol/L (22-29) L 07/13/23 12:48 Anion Gap 19.6 (5-19) H 07/13/23 12:48 BUN 14 mg/dL (8-23) 07/13/23 12:48 Creatinine 1.1 mg/dL (0.5-0.9) H 07/13/23 12:48 GFR Calculation Not Reportable 07/13/23 12:48 Glucose 95 mg/dL (65-115) 07/13/23 12:48 Calculated Osmolality 286 mOsm/kg (285-295) 07/13/23 12:48 Calcium 9.6 mg/dL (8.5-10.5) 07/13/23 12:48 Total Bilirubin 0.4 mg/dL (0.15-1.2) 07/13/23 12:48 AST 23 U/L (0-32) 07/13/23 12:48 ALT 13 U/L (0-33) 07/13/23 12:48 Alkaline Phosphatase 80 U/L (35-105) 07/13/23 12:48 Troponin T Baseline 15 ng/L (0-10) H 07/13/23 12:48 Troponin T 120 Minute 16.65 ng/L (0-10) H 07/13/23 14:52 Delta Troponin T 1.65 ABS# (0-10) 07/13/23 14:52 Total Protein 7.6 g/dL (6.6-8.7) 07/13/23 12:48 Albumin 4.2 g/dL (3.5-5.2) 07/13/23 12:48 Globulin 3.4 g/dL (1.3-4.6) 07/13/23 12:48 Lipase 43 U/L (13-60) 07/13/23 12:48 All radiology interpretation(s) finalized by discharge EKG Data EKG 1: I personally reviewed and interpreted this EKG as follows: EKG interpretation date: 07/13/23 EKG interpretation time: 12:40 Interpretation: nsr hr [address] or t wave abnormalities qrs 74 qtc 423 EKG 2: I personally reviewed and interpreted this EKG as follows: EKG interpretation date: 07/13/23 EKG interpretation time: 14:42 Interpretation: nsr hr [address] or t wave abnormalities qrs 77 qtc 425 Discharge Plan Discharge Patient Disposition: Home Clinical Impression: Chest pain Condition: Stable Prescriptions: No Action ranolazine 500 mg tablet extended release 12 hr 500 mg PO BID Qty: 60 3RF cyclobenzaprine 5 mg tablet 5 mg PO TID PRN (Reason: Muscle Spasm) rosuvastatin 20 mg tablet 20 mg PO DAILY Qty: 90 3RF furosemide 40 mg tablet 40 mg PO DAILY Qty: 90 3RF nitroglycerin [Nitrostat] 0.4 mg tablet, sublingual 0.4 mg sublingual Q5M PRN (Reason: chest pain) Qty: 25 1RF Rx Instructions: do not exceed 3 doses per episode clopidogrel 75 mg tablet See Rx Instructions .ROUTE .COMPLEX Qty: 90 3RF Dose Instruction: TAKE ONE TABLET BY MOUTH DAILY Rx Instructions: TAKE ONE TABLET BY MOUTH DAILY sertraline 100 mg tablet 100 mg PO DAILY ondansetron HCl 8 mg Tablet 8 mg PO BID PRN (Reason: Nausea) sucralfate 1 gram Tablet 1 g PO BID isosorbide mononitrate 30 mg Tablet Extended Release 24 Hr 15 mg PO BID metoprolol tartrate 25 mg Tablet 12.5 mg PO BID aspirin 81 mg Tablet,Delayed Release (Dr/Ec) 81 mg PO DAILY calcium carbonate 500 mg calcium (1,250 mg) Tablet 500 mg PO DAILY cyanocobalamin (vitamin B-12) [Vitamin B-12] 1,000 mcg Tablet 1,000 mcg PO DAILY acetaminophen [Tylenol Ex Str Rapid Release] 500 mg Tablet 1,000 mg PO Q6H PRN (Reason: Pain) promethazine 25 mg tablet 25 mg PO Q8H PRN (Reason: Nausea And Vomiting) amoxicillin-pot clavulanate 875-125 mg tablet 1 tab PO BID Qty: 14 0RF Discharge Orders: Discharge ED (Routine); Ordered 07/13/23 Ordered By: Sorin Garber Referrals: Rafael Shah [Primary Care Provider] - 1-3 days Discharge Diet: Advance as tolerated Discharge Activity: Resume usual activity Patient Instructions: Chest Pain (ED) Coding Level of Care Code ED Water Filtration Technician for Marlene Brewster
[2023-07-13 13:03] LABS: Basophils # 0.1 10^3/uL (0.0-0.1); Eosinophils # 0.1 10^3/uL (0.0-0.8); Eosinophils % 1.2 %; Hematocrit 39.5 % (36-47); Lymphocytes # 2.7 10^3/uL (0.8-4.8); Lymphocytes % 27.5 %; Mean Corpuscular HGB Conc 30.1 g/dL (30-55); Mean Corpuscular Hemoglobin 25.6 pg (27-33); Mean Corpuscular Volume 85.1 fl (85-98); Mean Platelet Volume 8.6 fL (7.4-10.4); Monocytes # 0.7 10^3/uL (0.2-0.9); Monocytes % 7.5 %; Neutrophils # 6.12 10^3/uL (1.8-7.7); Neutrophils % 62.7 %; Nucleated Red Blood Cells % 0 %; Platelet Count 329 10^3/cmm (157-399); Red Blood Count 4.64 10^6/uL (3.85-5.65); Red Cell Distribution Width 14.8 % (12.1-15.1); White Blood Count 9.76 10^3/uL (3.29-11.43)
[2023-07-13] MEDS: hyDRALAzine 20 mg/mL INJ 1 mL 10 MG IVP ×2 (13:25→14:32)
[2023-07-13 13:31] LABS: Alanine Aminotransferase 13 U/L (0-33); Albumin Level 4.2 g/dL (3.5-5.2); Alkaline Phosphatase 80 U/L (35-105); Anion Gap 19.6 (5-19); Aspartate Amino Transferase 23 U/L (0-32); Blood Urea Nitrogen 14 mg/dL (8-23); Calcium 9.6 mg/dL (8.5-10.5); Carbon Dioxide 19 mmol/L (22-29); Chloride 103 mmol/L (98-107); Globulin 3.4 g/dL (1.3-4.6); Glucose 95 mg/dL (65-115); Lipase 43 U/L (13-60); Osmolality Calculated 286 mOsm/kg (285-295); Potassium 3.6 mmol/L (3.5-5.1); Sodium 138 mmol/L (136-145); Total Bilirubin 0.4 mg/dL (0.15-1.2); Total Protein 7.6 g/dL (6.6-8.7); Troponin(5th) Baseline 15 ng/L (0-10)
--- NOTE | 2023-07-13 14:46 | ECG_ITS ---
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 Measurements Intervals [place] Rate: 83 P: 52 NV: 132 QRS: 73 QRSD: 77 T: 46 QT: 385 QTc: 454 Interpretive Statements SINUS RHYTHM WITH FREQUENT SUPRAVENTRICULAR PREMATURE COMPLEXES NONSPECIFIC ST & T-WAVE ABNORMALITY ABNORMAL RHYTHM ECG Compared to ECG 07/13/2023 12:40:55 No significant changes Electronically Signed On 07-14-2023 13:33:43 [employer] by Scarlett Singleton M.D. [email or web address]
[2023-07-13 15:34] LABS: Troponin 5 2HR 16.65 ng/L (0-10)
[2023-07-13 15:35] LABS: Troponin 5 2HR Delta 1.65 ABS# (0-10)
[2023-07-13] MEDS: HYDROcodone-acetaminophen 5-325 mg Tablet 1 TAB PO (15:53)
== END 2023-07-13 16:04 | disposition home or self-care (01) ==
PROVIDERS: Emergency Provider Emergency Medicine; PCP Family Medicine
DX: R07.9 Chest pain, unspecified (principal); Z79.02 Long term (current) use of antithrombotics/antiplatelets; Z79.82 Long term (current) use of aspirin; I25.10 Atherosclerotic heart disease of native coronary artery without angina pectoris; E11.9 Type 2 diabetes mellitus without complications; I11.0 Hypertensive heart disease with heart failure; I50.9 Heart failure, unspecified; E78.5 Hyperlipidemia, unspecified
CPT/HCPCS: 36415; 71045; 80053; 83690; 84484; 85025; 93005; 93010; 96374; 96375; 99285; J0360

== ENCOUNTER → 2024-01-05 09:09 | Outpatient (BNVA) | payer MEDICARE, MEDICAID, SELFPAY | PROVIDERS: PCP Family Medicine; Visit Provider Nurse Practitioner Family | DX: I25.10 Atherosclerotic heart disease of native coronary artery without angina pectoris (principal); I13.0 Hypertensive heart and chronic kidney disease with heart failure and stage 1 through stage 4 chronic kidney disease, or unspecified chronic kidney disease; I50.30 Unspecified diastolic (congestive) heart failure; N18.9 Chronic kidney disease, unspecified; E11.22 Type 2 diabetes mellitus with diabetic chronic kidney disease | CPT/HCPCS: 99214 ==

== ENCOUNTER → 2025-02-19 14:49 | Outpatient (BNVA) | payer OTHER, MEDICAID, SELFPAY | PROVIDERS: PCP Family Medicine; Visit Provider Internal Medicine Cardiovascular Disease | DX: I25.10 Atherosclerotic heart disease of native coronary artery without angina pectoris (principal); I11.0 Hypertensive heart disease with heart failure; I50.9 Heart failure, unspecified; E78.5 Hyperlipidemia, unspecified; Z87.891 Personal history of nicotine dependence | CPT/HCPCS: 99214 ==